=== PATIENT | female | born 1955 | race Caucasian/White ===

== ENCOUNTER → 2016-04-28 | Outpatient (REF) | payer OTHER ==
[~2016-04-28] MED LIST: /AMLO25TA PO; ADV250INH INH; ALBU17IN INH; AMLO5TAB2 PO; ASPI325T28 PO; ATOR1TAB21 PO; AZIT250T3 PO; LEVO10VL IV; LEVO500T PO; MEDR4TAB PO; OYST1TAB PO; PRED10TA PO; PRED1TAB32 PO; TYLE325T5 PO; VENTAER INH
[2016-04-28 12:00] LABS: MEAN CORPUSCULAR HGB CONC 34.5 g/dl (32.0-36.5); MEAN CORPUSCULAR VOLUME 101.5 fl (80.0-96.0); RED CELL DISTRIBUTION WIDTH 12.6 % (11.5-14.5); WHITE BLOOD COUNT 4.1 K/mm3 (4.0-10.0)
[2016-04-28 12:16] LABS: VITAMIN B12 LEVEL 312 PG/ML (247-911)
[2016-04-28 12:26] LABS: ALBUMIN 3.9 GM/DL (3.2-5.2); ALBUMIN/GLOBULIN RATIO 1.34 (1.00-1.93); ALKALINE PHOSPHATASE 111 U/L (45-117); ALT/SGPT 24 U/L (12-78); ANION GAP 14 MEQ/L (8-16); AST/SGOT 25 U/L (15-37); BILIRUBIN,TOTAL 0.7 MG/DL (0.2-1.0); BLOOD UREA NITROGEN 12 MG/DL (7-18); CALCIUM LEVEL 8.8 MG/DL (8.8-10.2); CARBON DIOXIDE LEVEL 23 MEQ/L (21-32); CHLORIDE LEVEL 99 MEQ/L (98-107); CHOLESTEROL LEVEL 199 MG/DL (<200); CREATININE FOR GFR 0.66 MG/DL (0.55-1.02); FREE T4 1.19 NG/DL (0.76-1.46); GLOMERULAR FILTRATION RATE > 60.0 (>45); GLUCOSE, FASTING 109 MG/DL (80-110); POTASSIUM SERUM 4.2 MEQ/L (3.5-5.1); SODIUM LEVEL 136 MEQ/L (136-145); TOTAL PROTEIN 6.8 GM/DL (6.4-8.2); TRIGLYCERIDES LEVEL 47 MG/DL (<150)
== END ==
LOC: M LABDRAW1 11:29
PROVIDERS: ATTEND Nurse Practitioner Family
DX: E78.00 Pure hypercholesterolemia, unspecified (principal); I10 Essential (primary) hypertension; E53.8 Deficiency of other specified B group vitamins; E03.9 Hypothyroidism, unspecified; E55.9 Vitamin D deficiency, unspecified

== ENCOUNTER → 2016-06-23 | Outpatient (REF) | payer OTHER | LOC: M LAB REF 12:18 | PROVIDERS: ATTEND Physician Assistant | DX: J03.90 Acute tonsillitis, unspecified (principal) ==

== ENCOUNTER → 2016-07-20 | Outpatient (REF) | payer OTHER | LOC: M LAB REF 16:34 | PROVIDERS: ATTEND Neurological Surgery | DX: Z01.818 Encounter for other preprocedural examination (principal); G56.00 Carpal tunnel syndrome, unspecified upper limb ==

== ENCOUNTER → 2016-08-03 | Outpatient (REF) | payer OTHER ==
[2016-08-03 12:01] LABS: MEAN CORPUSCULAR HEMOGLOBIN 33.6 pg (27.0-33.0); MEAN CORPUSCULAR HGB CONC 32.5 g/dl (32.0-36.5); MEAN CORPUSCULAR VOLUME 103.2 fl (80.0-96.0); RED CELL DISTRIBUTION WIDTH 13.8 % (11.5-14.5); WHITE BLOOD COUNT 4.3 K/mm3 (4.0-10.0)
[2016-08-03 12:10] LABS: VITAMIN B12 LEVEL 417 PG/ML (247-911)
[2016-08-03 12:15] LABS: ALBUMIN 3.8 GM/DL (3.2-5.2); ALBUMIN/GLOBULIN RATIO 1.12 (1.00-1.93); ALKALINE PHOSPHATASE 89 U/L (45-117); ALT/SGPT 21 U/L (12-78); ANION GAP 7 MEQ/L (8-16); AST/SGOT 27 U/L (15-37); BILIRUBIN,TOTAL 0.9 MG/DL (0.2-1.0); BLOOD UREA NITROGEN 4 MG/DL (7-18); CALCIUM LEVEL 8.7 MG/DL (8.8-10.2); CARBON DIOXIDE LEVEL 27 MEQ/L (21-32); CHLORIDE LEVEL 97 MEQ/L (98-107); CHOLESTEROL LEVEL 200 MG/DL (<200); CREATININE FOR GFR 0.51 MG/DL (0.55-1.02); FREE T4 1.36 NG/DL (0.76-1.46); GLOMERULAR FILTRATION RATE > 60.0 (>45); GLUCOSE, FASTING 82 MG/DL (80-110); POTASSIUM SERUM 4.4 MEQ/L (3.5-5.1); SODIUM LEVEL 131 MEQ/L (136-145); TOTAL PROTEIN 7.2 GM/DL (6.4-8.2); TRIGLYCERIDES LEVEL 52 MG/DL (<150)
== END ==
LOC: M LABDRAW1 11:14
PROVIDERS: ATTEND Nurse Practitioner Family
DX: E78.00 Pure hypercholesterolemia, unspecified (principal); I10 Essential (primary) hypertension; E55.9 Vitamin D deficiency, unspecified; E03.9 Hypothyroidism, unspecified

== ENCOUNTER → 2016-08-31 | Outpatient (CLI) | payer OTHER ==
[~2016-08-31] MED LIST changes: +ADVA230A INH; +CYAN25TA PO; +LEVO125T3 PO
[2016-08-31 09:00] LABS: BASO % 0.8 % (0.0-1.0); EOS # 0.1 K/mm3 (0.0-0.50); EOS % 2.6 % (0.0-3.0); LARGE UNSTAINED CELL # 0.1 K/mm3 (0.0-0.4); LARGE UNSTAINED CELL % 2.6 % (0.0-4.0); LYMPH # 1.3 K/mm3 (1.5-4.5); LYMPH % 30.3 % (24.0-44.0); MEAN CORPUSCULAR HEMOGLOBIN 35.7 pg (27.0-33.0); MEAN CORPUSCULAR HGB CONC 34.2 g/dl (32.0-36.5); MEAN CORPUSCULAR VOLUME 104.4 fl (80.0-96.0); MONO # 0.4 K/mm3 (0.0-0.8); NEUTROPHILS % 53.6 % (36.0-66.0); PLATELET COUNT, AUTOMATED 297 k/mm3 (150-450); RED CELL DISTRIBUTION WIDTH 13.6 % (11.5-14.5); WHITE BLOOD COUNT 3.8 K/mm3 (4.0-10.0)
[2016-08-31 09:09] LABS: INR 1.01
--- NOTE | 2016-08-31 09:12 | REP ---
Clinical: Preoperative assessment. Technique: PA and lateral. Comparison: 06/12/2014. Findings: Mediastinum and cardiac silhouette are within normal limits and stable. Lung parker demonstrate chronic stable changes without acute consolidation, effusion, or pneumothorax. Airway is patent and midline. Skeletal structures demonstrate age-related changes. Impression: Chronic stable changes. No acute cardiopulmonary process appreciated. Signed by Gabe Chicas MD 08/31/2016 09:04 A
[2016-08-31 09:24] LABS: ALBUMIN 3.6 GM/DL (3.2-5.2); ALBUMIN/GLOBULIN RATIO 1.03 (1.00-1.93); ALKALINE PHOSPHATASE 91 U/L (45-117); ALT/SGPT 36 U/L (12-78); ANION GAP 8 MEQ/L (8-16); AST/SGOT 26 U/L (15-37); BILIRUBIN,TOTAL 0.6 MG/DL (0.2-1.0); BLOOD UREA NITROGEN 8 MG/DL (7-18); CALCIUM LEVEL 8.6 MG/DL (8.8-10.2); CARBON DIOXIDE LEVEL 27 MEQ/L (21-32); CHLORIDE LEVEL 101 MEQ/L (98-107); CREATININE FOR GFR 0.69 MG/DL (0.55-1.02); GLOMERULAR FILTRATION RATE > 60.0 (>45); GLUCOSE, FASTING 96 MG/DL (80-110); POTASSIUM SERUM 4.2 MEQ/L (3.5-5.1); SODIUM LEVEL 136 MEQ/L (136-145); TOTAL PROTEIN 7.1 GM/DL (6.4-8.2)
--- NOTE | 2016-08-31 10:14 | ECGEPIP ---
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
== END ==
LOC: M LAB 08:18
PROVIDERS: ATTEND Neurological Surgery
DX: Z01.818 Encounter for other preprocedural examination (principal); G56.00 Carpal tunnel syndrome, unspecified upper limb

== ENCOUNTER → 2016-09-08 | Day surgery (SDC) | payer OTHER ==
[~2016-09-08] VITALS: Ht 160 cm; Wt 70.3 kg
[~2016-09-08] MED LIST changes: +ALBUTEROL SULFATE 2.5 MG/0.5 ML INH NEB SOLN As Ordered ONE; +ALBUTEROL SULFATE 2.5 MG/0.5 ML INH NEB SOLN INH ONE; +KETOROLAC 60 MG/2 ML VIAL (J1885) As Ordered ONE; +LIDOCAINE 1% SDV INJ 30 ML VIAL As Ordered ONE; +LIDOCAINE 2% INJ 100 MG/5 ML SDV (FOR ANES.) As Ordered ONE; +LR 1,000 ML IV ONE; +LR 1,000 ML IV SCH; +MIDAZOLAM INJ 2 MG/2 ML VIAL (J2250) As Ordered ONE; +NORCO, ANEXSIA 5/325MG TABLET (HYDROcodone/ACETAMINOPHEN) PO PRN; +ONDANSETRON 4MG/2ML VIAL (J2405) As Ordered ONE; +ONDANSETRON 4MG/2ML VIAL (J2405) IV PRN; +PHENYLephrine HCL 500 MCG/5 ML (100MCG/ML) SYRINGE (J2370) As Ordered ONE; +PROPOFOL 200 MG/20 ML VIAL As Ordered ONE; +fentaNYL 100 MCG/2 ML INJECTION (J3010) As Ordered ONE; +methylPREDNISolone SUSP 40 MG/ML (DEPO-medrol) VIAL (J1030) As Ordered ONE
[2016-09-08] MEDS: fentaNYL 100 MCG/2 ML INJECTION (J3010) IV PRN ×2 (11:30→11:40)
[2016-09-08 13:15] VITALS: BP 161/72
--- NOTE | 2016-09-09 09:01 | RO ---
DATE OF PROCEDURE: 09/08/2016 PREPROCEDURE DIAGNOSIS: Left carpal tunnel syndrome. POSTPROCEDURE DIAGNOSIS: Left carpal tunnel syndrome. PROCEDURE: Release of left carpal tunnel and external neurolysis of median nerve at the carpal tunnel. SURGEON: Dr. Michele Salazar. DIRECTOR OF STRATEGIC MARKETING: None. ANESTHESIA: General with tourniquet. ESTIMATED BLOOD LOSS: Findings: Please see my office notes for detailed preoperative evaluation and discussions. Patient was seen in the preoperative area with her . Patient was aware of all options, risks, scope, expected outcome, sequel and complication of the proposed procedure. Patient understood no guarantees of any kind could be given and that not all her symptoms could be readily explained on carpal tunnel syndrome, thus not all may be addressed. Patient understood once again the scope, expected outcome, sequel, all complications of surgery and understood the risks include, , persistence or worsening of symptoms and/or deficits, need for multiple surgeries, failure of surgery, persistence and/or worsening or symptoms and/or deficits, development of RSD, further worsening of respiratory disorder, loss of vital bodily functions, infection, bleeding and/or any catastrophic sequel. Once again, she wished to proceed with surgery. She understands all the risks and is willing to take any risks. After informed consent, patient was taken to the operating room. Once in the operating room, general anesthesia was given by the anesthesia service. The anesthesia service decided to switch the surgery from nerve block with conscious sedation to general anesthesia. Once general anesthesia was given by the anesthesia service, the area of surgery was prepped and draped in the usual sterile fashion using Esmarch dressing. The left upper extremity was examined and a skin incision was given along one of the palmar creases distal to the wrist crease. Alveolar layer was reached and incised. Cut edges of the blood vessels were coagulated with bipolar cautery. Thenar and hypothenar muscles were from midline structures with self retaining retractors. Tendons of the palmaris longus were . Thenar and hypothenar muscles were stripped off the flexor retinaculum which were then incised in entirety. There was nodular hypertrophy of the flexor retinaculum particularly just next to the wrist joint. Multiple adhesions of median nerve were lysed and complete decompression of median nerve was carried out to the entire extent of the carpal tunnel and some were proximal as well as medially in the distal wrist. After complete decompression had been done and superficial median nerve adhesions were lysed, the wound was closed in two layers. Patient tolerated the procedure well and was transferred to outpatient unit in stable condition. Operative findings were discussed with patient's in the waiting room.
== END | disposition home or self-care (01) ==
LOC: M SDC 06:58
PROVIDERS: ATTEND Neurological Surgery
DX: G56.02 Carpal tunnel syndrome, left upper limb (principal); I10 Essential (primary) hypertension; R06.02 Shortness of breath; M47.892 Other spondylosis, cervical region; J44.9 Chronic obstructive pulmonary disease, unspecified; M54.81 Occipital neuralgia; M47.896 Other spondylosis, lumbar region; M46.1 Sacroiliitis, not elsewhere classified; G56.22 Lesion of ulnar nerve, left upper limb; M12.9 Arthropathy, unspecified; E03.9 Hypothyroidism, unspecified; Z79.899 Other long term (current) drug therapy; Z90.710 Acquired absence of both cervix and uterus; Z72.0 Tobacco use
CPT/HCPCS: 36415; 64721; 85576; J0690; J1030; J1885; J2250; J2370; J2405; J3010

== ENCOUNTER → 2016-11-04 | Outpatient (REF) | payer OTHER ==
[~2016-11-04] MED LIST changes: -ALBUTEROL SULFATE 2.5 MG/0.5 ML INH NEB SOLN As Ordered ONE; -ALBUTEROL SULFATE 2.5 MG/0.5 ML INH NEB SOLN INH ONE; +AZIT-12 PO; -AZIT250T3 PO; -KETOROLAC 60 MG/2 ML VIAL (J1885) As Ordered ONE; -LEVO125T3 PO; +LEVO125T4 PO; -LIDOCAINE 1% SDV INJ 30 ML VIAL As Ordered ONE; -LIDOCAINE 2% INJ 100 MG/5 ML SDV (FOR ANES.) As Ordered ONE; -LR 1,000 ML IV ONE; -LR 1,000 ML IV SCH; -MIDAZOLAM INJ 2 MG/2 ML VIAL (J2250) As Ordered ONE; -NORCO, ANEXSIA 5/325MG TABLET (HYDROcodone/ACETAMINOPHEN) PO PRN; -ONDANSETRON 4MG/2ML VIAL (J2405) As Ordered ONE; -ONDANSETRON 4MG/2ML VIAL (J2405) IV PRN; -PHENYLephrine HCL 500 MCG/5 ML (100MCG/ML) SYRINGE (J2370) As Ordered ONE; -PROPOFOL 200 MG/20 ML VIAL As Ordered ONE; -fentaNYL 100 MCG/2 ML INJECTION (J3010) As Ordered ONE; -methylPREDNISolone SUSP 40 MG/ML (DEPO-medrol) VIAL (J1030) As Ordered ONE
[2016-11-04 11:51] LABS: MEAN CORPUSCULAR HEMOGLOBIN 34.6 pg (27.0-33.0); MEAN CORPUSCULAR VOLUME 101.7 fl (80.0-96.0); RED CELL DISTRIBUTION WIDTH 13.3 % (11.5-14.5); WHITE BLOOD COUNT 3.6 K/mm3 (4.0-10.0)
[2016-11-04 12:00] LABS: VITAMIN B12 LEVEL 555 PG/ML (247-911)
[2016-11-04 16:12] LABS: ALBUMIN 3.9 GM/DL (3.2-5.2); ALBUMIN/GLOBULIN RATIO 1.15 (1.00-1.93); ALKALINE PHOSPHATASE 112 U/L (45-117); ALT/SGPT 55 U/L (12-78); ANION GAP 7 MEQ/L (8-16); AST/SGOT 46 U/L (15-37); BILIRUBIN,TOTAL 1.3 MG/DL (0.2-1.0); BLOOD UREA NITROGEN 5 MG/DL (7-18); CARBON DIOXIDE LEVEL 27 MEQ/L (21-32); CHLORIDE LEVEL 99 MEQ/L (98-107); CHOLESTEROL LEVEL 198 MG/DL (<200); CREATININE FOR GFR 0.58 MG/DL (0.55-1.02); FREE T4 1.39 NG/DL (0.76-1.46); GLOMERULAR FILTRATION RATE > 60.0 (>45); GLUCOSE, FASTING 87 MG/DL (80-110); POTASSIUM SERUM 4.1 MEQ/L (3.5-5.1); SODIUM LEVEL 133 MEQ/L (136-145); TOTAL PROTEIN 7.3 GM/DL (6.4-8.2); TRIGLYCERIDES LEVEL 51 MG/DL (<150)
== END ==
LOC: M LABDRAW1 11:15
PROVIDERS: ATTEND Nurse Practitioner Family
DX: D51.9 Vitamin B12 deficiency anemia, unspecified (principal); I10 Essential (primary) hypertension; E78.5 Hyperlipidemia, unspecified; E03.9 Hypothyroidism, unspecified

== ENCOUNTER → 2017-03-03 | Outpatient (REF) | payer OTHER ==
[2017-03-03 12:08] LABS: MEAN CORPUSCULAR HEMOGLOBIN 34.1 pg (27.0-33.0); MEAN CORPUSCULAR HGB CONC 34.7 g/dl (32.0-36.5); MEAN CORPUSCULAR VOLUME 98.3 fl (80.0-96.0); PLATELET COUNT, AUTOMATED 265 10^3/uL (150-450); RED CELL DISTRIBUTION WIDTH 14.2 % (11.5-14.5); WHITE BLOOD COUNT 3.8 10^3/uL (4.0-10.0)
[2017-03-03 12:46] LABS: ALBUMIN 3.7 GM/DL (3.2-5.2); ALBUMIN/GLOBULIN RATIO 1.19 (1.00-1.93); ALKALINE PHOSPHATASE 85 U/L (45-117); ALT/SGPT 27 U/L (12-78); ANION GAP 8 MEQ/L (8-16); AST/SGOT 20 U/L (7-37); BILIRUBIN,TOTAL 0.7 MG/DL (0.2-1.0); BLOOD UREA NITROGEN 6 MG/DL (7-18); CALCIUM LEVEL 8.9 MG/DL (8.8-10.2); CARBON DIOXIDE LEVEL 28 MEQ/L (21-32); CHLORIDE LEVEL 102 MEQ/L (98-107); CHOLESTEROL LEVEL 232 MG/DL (<200); CREATININE FOR GFR 0.59 MG/DL (0.55-1.02); FREE T4 1.43 NG/DL (0.76-1.46); GLOMERULAR FILTRATION RATE > 60.0 (>45); GLUCOSE, FASTING 99 MG/DL (80-110); POTASSIUM SERUM 4.4 MEQ/L (3.5-5.1); SODIUM LEVEL 138 MEQ/L (136-145); TOTAL PROTEIN 6.8 GM/DL (6.4-8.2); TRIGLYCERIDES LEVEL 48 MG/DL (<150)
== END ==
LOC: M LABDRAW1 10:18
PROVIDERS: ATTEND Nurse Practitioner Family
DX: I10 Essential (primary) hypertension (principal); E78.00 Pure hypercholesterolemia, unspecified; E55.9 Vitamin D deficiency, unspecified; E03.9 Hypothyroidism, unspecified

== ENCOUNTER → 2017-06-10 | Outpatient (REF) | payer OTHER ==
[2017-06-10 12:13] LABS: TOTAL 25(OH) VITAMIN D 40.1 NG/ML (30.0-100.0)
[2017-06-10 12:16] LABS: ALBUMIN/GLOBULIN RATIO 1.14 (1.00-1.93); ALKALINE PHOSPHATASE 103 U/L (45-117); ALT/SGPT 29 U/L (12-78); ANION GAP 9 MEQ/L (8-16); AST/SGOT 26 U/L (7-37); BILIRUBIN,TOTAL 0.7 MG/DL (0.2-1.0); BLOOD UREA NITROGEN 7 MG/DL (7-18); CALCIUM LEVEL 8.9 MG/DL (8.8-10.2); CARBON DIOXIDE LEVEL 28 MEQ/L (21-32); CHLORIDE LEVEL 98 MEQ/L (98-107); CHOLESTEROL LEVEL 218 MG/DL (<200); CHOLESTEROL RISK RATIO 1.703 (<5); CPK CREATINE PHOSPHOKINASE 108 U/L (26-192); CREATININE FOR GFR 0.51 MG/DL (0.55-1.30); FREE T4 1.25 NG/DL (0.76-1.46); GLOMERULAR FILTRATION RATE > 60.0 (>45); GLUCOSE, FASTING 98 MG/DL (70-100); HDL CHOLESTEROL 128 MG/DL (>40); LDL CHOLESTEROL 80.6 MG/DL (<100); NON-HDL-C 90 MG/DL; POTASSIUM SERUM 4.5 MEQ/L (3.5-5.1); SODIUM LEVEL 135 MEQ/L (136-145); TOTAL PROTEIN 7.5 GM/DL (6.4-8.2); TRIGLYCERIDES LEVEL 47 MG/DL (<150)
== END ==
LOC: M LABDRAW1 08:16
DX: J44.9 Chronic obstructive pulmonary disease, unspecified (principal); E78.5 Hyperlipidemia, unspecified; E55.9 Vitamin D deficiency, unspecified; E03.9 Hypothyroidism, unspecified; D51.9 Vitamin B12 deficiency anemia, unspecified

== ENCOUNTER 2017-06-16 17:23 | Emergency (ER) | payer OTHER ==
[2017-06-16 18:30] LABS: BASO % 0.6 % (0.0-1.0); EOS % 0.5 % (0.0-3.0); HEMATOCRIT 39.8 % (36.0-47.0); HEMOGLOBIN 13.9 g/dl (12.0-16.0); IMMATURE GRANULOCYTE % 0.3 % (0-3.0); LYMPH % 30.3 % (24.0-44.0); MEAN CORPUSCULAR HEMOGLOBIN 33.2 pg (27.0-33.0); MEAN CORPUSCULAR HGB CONC 34.9 g/dl (32.0-36.5); MONO # 0.5 10^3/uL (0.0-0.8); MONO % 7.1 % (0.0-5.0); NEUTROPHILS % 61.2 % (36.0-66.0); PLATELET COUNT, AUTOMATED 241 10^3/uL (150-450); RED BLOOD COUNT 4.19 10^6/uL (4.00-5.40); WHITE BLOOD COUNT 6.5 10^3/uL (4.0-10.0)
[2017-06-16 18:50] LABS: ANION GAP 8 MEQ/L (8-16); BLOOD UREA NITROGEN 15 MG/DL (7-18); CARBON DIOXIDE LEVEL 26 MEQ/L (21-32); CHLORIDE LEVEL 100 MEQ/L (98-107); CREATININE FOR GFR 0.61 MG/DL (0.55-1.30); GLOMERULAR FILTRATION RATE > 60.0 (>45); GLUCOSE, FASTING 123 MG/DL (70-100); POTASSIUM SERUM 3.5 MEQ/L (3.5-5.1); SODIUM LEVEL 134 MEQ/L (136-145)
[2017-06-16 18:56] LABS: CPK CREATINE PHOSPHOKINASE 85 U/L (26-192); TROPONIN I < 0.02 NG/ML (< 0.10)
[2017-06-16 19:01] LABS: CK-MB VALUE MASS 1.9 NG/ML (0.0-3.6); MB/CK RELATIVE INDEX 2.23 (< OR =4)
[2017-06-16] MEDS: MECLIZINE 25 MG TABLET PO (20:25)
[2017-06-16] MEDS: LORazepam 2 MG/ML VIAL (J2060) IV (21:56)
== END 2017-06-16 22:26 | disposition home or self-care (01) ==
LOC: M ED 17:23
DX: R42 Dizziness and giddiness (principal); I10 Essential (primary) hypertension; F17.200 Nicotine dependence, unspecified, uncomplicated; Z79.899 Other long term (current) drug therapy
CPT/HCPCS: J2060

== ENCOUNTER → 2017-06-21 | Outpatient (REF) | payer OTHER ==
[2017-06-21 11:40] LABS: ERYTHROCYTE SEDIMENTATION RATE 27 mm/hr (0-30)
== END ==
LOC: M LABDRAW1 10:50
DX: R51 Headache (principal)
CPT/HCPCS: 36415

== ENCOUNTER → 2017-07-01 | Outpatient (REF) | payer OTHER ==
[2017-07-01 13:03] LABS: BLOOD UREA NITROGEN 10 MG/DL (7-18)
[2017-07-01 13:03] LABS: CREATININE FOR GFR 0.76 MG/DL (0.55-1.30); GLOMERULAR FILTRATION RATE > 60.0 (>45)
== END ==
LOC: M LABNEURO 10:59
DX: G50.0 Trigeminal neuralgia (principal)

== ENCOUNTER → 2017-08-02 | Outpatient (CLI) | payer OTHER | LOC: M PLARAD 09:18 | DX: R91.1 Solitary pulmonary nodule (principal) | CPT/HCPCS: 78815 ==

== ENCOUNTER → 2017-08-26 | Outpatient (CLI) | payer OTHER | LOC: M CARPUL 09:05 | DX: R93.1 Abnormal findings on diagnostic imaging of heart and coronary circulation (principal) | CPT/HCPCS: 93306 ==

== ENCOUNTER → 2017-11-24 | Outpatient (REF) | payer OTHER | LOC: M LAB REF 13:29 | DX: L56.8 Other specified acute skin changes due to ultraviolet radiation (principal); L57.0 Actinic keratosis | CPT/HCPCS: 88305 ==

== ENCOUNTER → 2017-12-08 | Outpatient (REF) | payer OTHER ==
[2017-12-08 12:46] LABS: HEMATOCRIT 40.5 % (36.0-47.0); HEMOGLOBIN 14.3 g/dl (12.0-15.5); MEAN CORPUSCULAR HEMOGLOBIN 33.5 pg (27.0-33.0); MEAN CORPUSCULAR HGB CONC 35.3 g/dl (32.0-36.5); MEAN CORPUSCULAR VOLUME 94.8 fl (80.0-96.0); PLATELET COUNT, AUTOMATED 295 10^3/uL (150-450); RED BLOOD COUNT 4.27 10^6/uL (4.00-5.40); RED CELL DISTRIBUTION WIDTH 14.9 % (11.5-14.5); WHITE BLOOD COUNT 3.5 10^3/uL (4.0-10.0)
[2017-12-08 13:10] LABS: ALBUMIN 3.9 GM/DL (3.2-5.2); ALBUMIN/GLOBULIN RATIO 1.03 (1.00-1.93); ALKALINE PHOSPHATASE 103 U/L (45-117); ALT/SGPT 35 U/L (12-78); ANION GAP 8 MEQ/L (8-16); AST/SGOT 38 U/L (7-37); BILIRUBIN,TOTAL 0.9 MG/DL (0.2-1.0); BLOOD UREA NITROGEN 5 MG/DL (7-18); C REACTIVE PROTEIN QUANTITATIV < 0.30 MG/DL (0.00-0.30); CARBON DIOXIDE LEVEL 27 MEQ/L (21-32); CHLORIDE LEVEL 99 MEQ/L (98-107); CHOLESTEROL LEVEL 211 MG/DL (<200); CHOLESTEROL RISK RATIO 1.455 (<5); CPK CREATINE PHOSPHOKINASE 102 U/L (26-192); CREATININE FOR GFR 0.51 MG/DL (0.55-1.30); GLOMERULAR FILTRATION RATE > 60.0 (>45); GLUCOSE, FASTING 88 MG/DL (70-100); HDL CHOLESTEROL 145 MG/DL (>40); LDL CHOLESTEROL 57.2 MG/DL (<100); NON-HDL-C 66 MG/DL; POTASSIUM SERUM 4.7 MEQ/L (3.5-5.1); RHEUMATOID FACTOR QUANT < 10.0 IU/ML (<15.0); SODIUM LEVEL 134 MEQ/L (136-145); TOTAL PROTEIN 7.7 GM/DL (6.4-8.2); TRIGLYCERIDES LEVEL 44 MG/DL (<150)
[2017-12-09 14:58] LABS: ANTINUCLEAR ANTIBODIES DIRECT Negative (Negative); RNP ANTIBODIES <0.2 AI (0.0-0.9); SMITH ANTIBODIES <0.2 AI (0.0-0.9)
== END ==
LOC: M LABDRAW1 12:23
DX: I10 Essential (primary) hypertension (principal); E78.00 Pure hypercholesterolemia, unspecified; E03.9 Hypothyroidism, unspecified
CPT/HCPCS: 82550

== ENCOUNTER → 2018-02-08 | Outpatient (CLI) | payer OTHER ==
[2018-02-08 16:21] LABS: HEMATOCRIT 39.1 % (36.0-47.0); HEMOGLOBIN 13.6 g/dl (12.0-15.5); MEAN CORPUSCULAR HEMOGLOBIN 33.9 pg (27.0-33.0); MEAN CORPUSCULAR HGB CONC 34.8 g/dl (32.0-36.5); MEAN CORPUSCULAR VOLUME 97.5 fl (80.0-96.0); PLATELET COUNT, AUTOMATED 349 10^3/uL (150-450); RED BLOOD COUNT 4.01 10^6/uL (4.00-5.40); RED CELL DISTRIBUTION WIDTH 13.9 % (11.5-14.5); WHITE BLOOD COUNT 5.4 10^3/uL (4.0-10.0)
== END ==
LOC: M LAB 16:03
DX: D72.819 Decreased white blood cell count, unspecified (principal)
CPT/HCPCS: 85027

== ENCOUNTER → 2018-04-21 | Outpatient (CLI) | payer OTHER ==
[~2018-04-21] MED LIST changes: -AMLO5TAB2 PO; +AMLO5TAB6 PO; +ASPI-222 PO; -ASPI325T28 PO; -CYAN25TA PO; +MECL-68 PO; +VITA250T50 PO
--- NOTE | 2018-04-21 08:25 | REPMRS ---
Patient History The patient states she had a clinical breast exam in 03/05 Family history of breast cancer at age 58 in mother, ovarian cancer at age 60 in sister. Digital Woman Screen Mammo: April 21, 2018 - Exam #: [id number] Bilateral CC and MLO view(s) were taken. Technologist: Layne León, Technologist Prior study comparison: February 14, 2017, digital woman screen mammo performed at [facility]. February 12, 2016, digital woman screen mammo performed at [facility]. September 27, 2014, digital woman screen mammo performed at [facility]. FINDINGS: The breast tissue is heterogeneously dense. This may lower the sensitivity of mammography. There is a moderate amount of heterogeneously dense fibroglandular tissue which is fairly symmetric. There is no interval development of dominant mass, architectural distortion, or clustered microcalcification typical of malignancy. There has been no change in the appearance of the mammogram from the prior studies. 3-D tomosynthesis shows no additional findings. Assessment: BI-RADS/ACR category 1 mammogram. Negative. Recommendation Routine screening mammogram of both breasts in 1 year (for women over age 40). This patient's Lifetime Breast Cancer RIsk is estimated at 9.2 %. This mammogram was interpreted with the aid of an FDA-approved computer-aided dectection system. Electronically Signed By: Joe Hyman MD 04/21/18 0825
== END ==
LOC: M WHC 07:48
PROVIDERS: ATTEND Nurse Practitioner Family
DX: Z12.31 Encounter for screening mammogram for malignant neoplasm of breast (principal)

== ENCOUNTER → 2018-04-25 | Outpatient (REF) | payer OTHER | LOC: M LAB REF 15:26 | PROVIDERS: ATTEND Surgery | DX: D48.5 Neoplasm of uncertain behavior of skin (principal) ==

== ENCOUNTER → 2018-07-13 | Outpatient (REF) | payer OTHER ==
[~2018-07-13] MED LIST changes: +ALBU2TA PO; +ALBU83IN INH
[2018-07-13 13:14] LABS: HEMATOCRIT 42.2 % (36.0-47.0); HEMOGLOBIN 14.7 g/dl (12.0-15.5); MEAN CORPUSCULAR HEMOGLOBIN 33.2 pg (27.0-33.0); MEAN CORPUSCULAR HGB CONC 34.8 g/dl (32.0-36.5); MEAN CORPUSCULAR VOLUME 95.3 fl (80.0-96.0); PLATELET COUNT, AUTOMATED 275 10^3/uL (150-450); RED BLOOD COUNT 4.43 10^6/uL (4.00-5.40); WHITE BLOOD COUNT 4.6 10^3/uL (4.0-10.0)
[2018-07-13 13:41] LABS: ALT/SGPT 33 U/L (12-78); BILIRUBIN,TOTAL 0.9 MG/DL (0.2-1.0); BLOOD UREA NITROGEN 9 MG/DL (7-18); CARBON DIOXIDE LEVEL 25 MEQ/L (21-32); CHLORIDE LEVEL 97 MEQ/L (98-107); CHOLESTEROL LEVEL 212 MG/DL (<200); CHOLESTEROL RISK RATIO 1.696 (<5); CPK CREATINE PHOSPHOKINASE 83 U/L (26-192); CREATININE FOR GFR 0.53 MG/DL (0.55-1.30); FREE T4 1.71 NG/DL (0.76-1.46); GLOMERULAR FILTRATION RATE > 60.0 (>45); GLUCOSE, FASTING 100 MG/DL (70-100); HDL CHOLESTEROL 125 MG/DL (>40); LDL CHOLESTEROL 76 MG/DL (<100); NON-HDL-C 87 MG/DL; POTASSIUM SERUM 4.8 MEQ/L (3.5-5.1); SODIUM LEVEL 133 MEQ/L (136-145); TOTAL PROTEIN 7.5 GM/DL (6.4-8.2); TRIGLYCERIDES LEVEL 57 MG/DL (<150)
[2018-07-13 13:44] LABS: TOTAL 25(OH) VITAMIN D 31.4 NG/ML (30.0-100.0)
== END ==
LOC: M LABDRAW1 11:34
PROVIDERS: ATTEND Nurse Practitioner Family
DX: E03.9 Hypothyroidism, unspecified (principal); I10 Essential (primary) hypertension; E55.9 Vitamin D deficiency, unspecified; E78.00 Pure hypercholesterolemia, unspecified

== ENCOUNTER → 2018-07-22 | Outpatient (CLI) | payer OTHER ==
[~2018-07-22] MED LIST changes: -/AMLO25TA PO; +LEVO100I IV; -LEVO10VL IV; +NORV2TAB PO; +PRED-351 PO; -PRED10TA PO
--- NOTE | 2018-07-22 09:32 | REP ---
Clinical: Gout Comparison: 08/31/2016 . Technique: PA and lateral. Findings: The mediastinum and cardiac silhouette are normal. The lung parker demonstrate chronic stable changes without acute consolidation, effusion, or pneumothorax. The skeletal structures are intact and normal. Impression: Chronic stable changes. No acute cardiopulmonary process. Electronically Signed by Gabe Chicas MD 07/22/2018 09:24 A
== END ==
LOC: M ADAMS 09:10
PROVIDERS: ATTEND Nurse Practitioner Family
DX: J44.9 Chronic obstructive pulmonary disease, unspecified (principal)

== ENCOUNTER 2018-07-25 09:14 | Day surgery (SDC) | payer OTHER ==
[~2018-07-25] VITALS: Ht 162.6 cm; Wt 58.1 kg
[~2018-07-25 09:14] MED LIST changes: +NS 1,000 ML IV ONE
[2018-07-25] MEDS ORDERED: LIDOCAINE 2% INJ 100 MG/5 ML SDV (FOR ANES.) As Ordered ONE (10:20)
[2018-07-25] MEDS ORDERED: PROPOFOL 200 MG/20 ML VIAL As Ordered ONE ×2 (10:20→11:03)
[2018-07-25 11:45] VITALS: BP 137/69
--- NOTE | 2018-07-25 12:23 | ROOR ---
Patient Name: Elisa Carpio Procedure Date: 07/25/2018 10:38 AM Date of : 1955 Age: 62 Room: [facility] Gender: Female Note Status: Finalized Procedure: Colonoscopy Indications: Last colonoscopy: June 2015, Abnormal CT of the GI tract, Weight loss Providers: Greg Leach MD Referring MD: RONAL PADILLA NP Requesting Provider: Medicines: Monitored Anesthesia Care Complications: No immediate complications. Procedure: Pre-Anesthesia Assessment: - Prior to the procedure, a History and Physical was performed, and patient medications and allergies were reviewed. The patient is competent. The risks and benefits of the procedure and the sedation options and risks were discussed with the patient. All questions were answered and informed consent was obtained. Patient identification and proposed procedure were verified by the physician, the nurse and the anesthesiologist in the procedure room. Mental Status Examination: alert and oriented. CV Examination: regular rate and rhythm. Prophylactic Antibiotics: The patient does not require prophylactic antibiotics. Prior Anticoagulants: The patient has taken no previous anticoagulant or antiplatelet agents. ASA Grade Assessment: III - A patient with severe systemic disease. After reviewing the risks and benefits, the patient was deemed in satisfactory condition to undergo the procedure. The anesthesia plan was to use monitored anesthesia care (MAC). Immediately prior to administration of medications, the patient was re-assessed for adequacy to receive sedatives. The heart rate, respiratory rate, oxygen saturations, blood pressure, adequacy of pulmonary ventilation, and response to care were monitored throughout the procedure. The physical status of the patient was re-assessed after the procedure. The Colonoscope was introduced through the anus and advanced to the hepatic flexure. The colonoscopy was unusually difficult due to a redundant colon and significant looping. Successful completion of the procedure was aided by changing the patient to a supine position and using manual pressure. The patient tolerated the procedure well. The quality of the bowel preparation was excellent. Findings: The perianal exam findings include non-thrombosed external hemorrhoids. The colon (entire examined portion) revealed significantly excessive looping. A 4 mm polyp was found in the splenic flexure. The polyp was sessile. The polyp was removed with a jumbo cold forceps. Resection and retrieval were complete. The pathology specimen was placed into Bottle Number 1. A 3 mm polyp was found in the sigmoid colon. The polyp was sessile. The polyp was removed with a jumbo cold forceps. Resection and retrieval were complete. The pathology specimen was placed into Bottle Number 2. Two sessile polyps were found in the rectum. The polyps were 4 to 6 mm in size. These were biopsied with a cold jumbo forceps for histology. Impression: - Non-thrombosed external hemorrhoids found on perianal exam. - There was significant looping of the colon. - One 4 mm polyp at the splenic flexure, removed with a jumbo cold forceps. Resected and retrieved. - One 3 mm polyp in the sigmoid colon, removed with a jumbo cold forceps. Resected and retrieved. - Two 4 to 6 mm polyps in the rectum. Biopsied. Recommendation: - Discharge patient to home. - Resume previous diet. - Continue present medications. - Await pathology results. - Telephone endoscopist for pathology results in 1 week. Greg Leach MD Greg Leach MD 07/25/2018 12:22:36 PM Electronically signed by Greg Leahc MD Number of Addenda: 0 Note Initiated On: 07/25/2018 10:38 AM Estimated Blood Loss: Estimated blood loss was minimal.
== END 2018-07-25 11:56 | disposition home or self-care (01) ==
LOC: M OPP 09:14
PROVIDERS: ATTEND Surgery
DX: D12.3 Benign neoplasm of transverse colon (principal); D12.5 Benign neoplasm of sigmoid colon; K64.8 Other hemorrhoids; K62.1 Rectal polyp; Q43.8 Other specified congenital malformations of intestine; R93.3 Abnormal findings on diagnostic imaging of other parts of digestive tract; R63.4 Abnormal weight loss

== ENCOUNTER → 2018-10-03 | Outpatient (CLI) | payer OTHER ==
[~2018-10-03] MED LIST changes: -NS 1,000 ML IV ONE
[2018-10-03 20:08] LABS: FREE T4 1.46 NG/DL (0.76-1.46); THYROID STIMULATING HORMONE 2.65 uIU/ML (0.358-3.740); THYROXINE (T4) 10.2 UG/DL (4.5-12.0); TOTAL T3 63.1 NG/DL (60.0-181.0)
== END ==
LOC: M LABDRWAD 17:06
PROVIDERS: ATTEND Nurse Practitioner Family
DX: E03.9 Hypothyroidism, unspecified (principal)

== ENCOUNTER 2018-11-25 17:27 | Emergency (ER) | payer OTHER ==
[~2018-11-25] VITALS: Ht 162.6 cm; Wt 56.4 kg
[2018-11-25] MEDS ORDERED: THIAMINE 100 MG TAB PO ONE (18:00)
[2018-11-25] MEDS ORDERED: NS 1,000 ML IV SCH (18:00)
--- NOTE | 2018-11-25 18:21 | REPVR ---
EXAM: CT Head Without Contrast EXAM DATE/TIME: 11/25/2018 6:02 PM CLINICAL HISTORY: 62 years old, female; Injury or trauma; Fall; Initial encounter; Blunt trauma (contusions or hematomas) TECHNIQUE: Imaging protocol: Computed tomography images of the head without contrast. Radiation optimization: All CT scans at this facility use at least one of these dose optimization techniques: automated exposure control; mA and/or kV adjustment per patient size (includes targeted exams where dose is matched to clinical indication); or iterative reconstruction. COMPARISON: CT Head without contrast 06/16/2017 7:59 PM FINDINGS: Brain: Normal. No hemorrhage. Unremarkable white matter. No mass effect. Ventricles: Normal. No ventriculomegaly. Bones/joints: There is hyperostosis frontalis interna. Sinuses: Visualized sinuses are unremarkable. No fluid levels. Mastoid air cells: Visualized mastoid air cells are well aerated. No mastoid effusion. Soft tissues: Unremarkable. IMPRESSION: No acute intracranial findings. Electronically signed by: Esau Edge On 11/25/2018 18:21:03 PM
--- NOTE | 2018-11-25 18:28 | REPVR ---
EXAM: CT Cervical Spine Without Contrast EXAM DATE/TIME: 11/25/2018 6:02 PM CLINICAL HISTORY: 62 years old, female; Injury or trauma; Fall; Initial encounter; Blunt trauma TECHNIQUE: Imaging protocol: Computed tomography images of the cervical spine without contrast. Coronal and sagittal reformatted images were created and reviewed. Radiation optimization: All CT scans at this facility use at least one of these dose optimization techniques: automated exposure control; mA and/or kV adjustment per patient size (includes targeted exams where dose is matched to clinical indication); or iterative reconstruction. COMPARISON: CR Spine, Cervical 09/10/2015 8:46 AM FINDINGS: Vertebrae: No acute fracture. Normal alignment. Discs/Spinal canal/Neural foramina: Degenerative changes atlantoaxial joint. Mild disc space narrowing at C4-5 and to a greater degree C5-6. Soft tissues: Unremarkable. Lungs: Pleural-parenchymal calcific scarring left apex. Bilateral emphysematous changes. IMPRESSION: No acute findings. Mild degenerative spondylosis. Electronically signed by: Esau Edge On 11/25/2018 18:28:47 PM
[2018-11-25 19:10] LABS: BASO % 0.6 % (0.0-1.0); EOS # 0.1 10^3/uL (0.0-0.50); EOS % 1.4 % (0.0-3.0); HEMATOCRIT 38.9 % (36.0-47.0); HEMOGLOBIN 13.8 g/dl (12.0-15.5); LYMPH # 1.7 10^3/uL (1.5-4.5); LYMPH % 25.9 % (24.0-44.0); MEAN CORPUSCULAR HEMOGLOBIN 34.7 pg (27.0-33.0); MEAN CORPUSCULAR HGB CONC 35.5 g/dl (32.0-36.5); MEAN CORPUSCULAR VOLUME 97.7 fl (80.0-96.0); MONO # 0.5 10^3/uL (0.0-0.8); NEUTROPHILS # 4.2 10^3/uL (1.8-7.7); NEUTROPHILS % 63.5 % (36.0-66.0); PLATELET COUNT, AUTOMATED 244 10^3/uL (150-450); RED BLOOD COUNT 3.98 10^6/uL (4.00-5.40); WHITE BLOOD COUNT 6.6 10^3/uL (4.0-10.0)
[2018-11-25] MEDS ORDERED: NS 500 ML IV ONE ×2 (19:30→20:15)
[2018-11-25 19:45] LABS: ACETAMINOPHEN LEVEL < 2.0 UG/ML (10.0-30.0); ALBUMIN 3.6 GM/DL (3.2-5.2); ALT/SGPT 23 U/L (12-78); BILIRUBIN,DIRECT 0.2 MG/DL (0.0-0.2); BILIRUBIN,TOTAL 0.4 MG/DL (0.2-1.0); BLOOD UREA NITROGEN 4 MG/DL (7-18); CALCIUM LEVEL 8.1 MG/DL (8.8-10.2); CARBON DIOXIDE LEVEL 25 MEQ/L (21-32); CHLORIDE LEVEL 90 MEQ/L (98-107); CPK CREATINE PHOSPHOKINASE 151 U/L (26-192); CREATININE FOR GFR 0.38 MG/DL (0.55-1.30); ETHYL ALCOHOL (ETHANOL) 0.295 % (0.000-0.010); GLOMERULAR FILTRATION RATE > 60.0 (>45); GLUCOSE, FASTING 83 MG/DL (70-100); MAGNESIUM LEVEL 1.9 MG/DL (1.8-2.4); POTASSIUM SERUM 3.9 MEQ/L (3.5-5.1); SALICYLATE LEVEL 2.1 MG/DL (5.0-30.0); SODIUM LEVEL 124 MEQ/L (136-145); THYROID STIMULATING HORMONE 0.898 uIU/ML (0.358-3.740); TOTAL PROTEIN 6.9 GM/DL (6.4-8.2)
[2018-11-25 20:57] VITALS: BP 130/85
--- NOTE | 2018-11-26 09:13 | REP ---
HISTORY: Pain after trauma. COMPARISON: None. There is degenerative change seen throughout the thoracic spine with anterior lipping and disc space narrowing. Vertebral body height and alignment is within normal limits. There is no plain radiographic evidence of a fracture. IMPRESSION: Chronic changes. Electronically Signed by Castillo Mckeon DO 11/26/2018 10:03 A
--- NOTE | 2018-11-26 09:16 | REP ---
HISTORY: Pain after trauma. COMPARISON: None. There is partial syndesmophyte formation seen bilaterally at every level. There is a slight grade 1 L4 upon L5 spondylolisthesis. There is no evidence of spondylolysis. There is bilateral hypertrophic degenerative facet joint change seen at every level, but particularly at L4-5. There is disc space narrowing seen mildly to moderately at every level. Vertebral body height is within normal limits. The pedicles are intact bilaterally. IMPRESSION: There is a grade 1 L4 upon L5 spondylolisthesis which is secondary to degenerative changes as described above. This has increased slightly when compared to the prior examination of 03/23/2016. Other chronic changes as described above, also slightly increased. Electronically Signed by Castillo Mckeon DO 11/26/2018 10:03 A
--- NOTE | 2018-11-26 09:20 | REP ---
HISTORY: Pain after trauma. COMPARISON: None. RIGHT FEMUR: There is moderate to severe asymmetric hip joint space narrowing with a cam deformity noted involving the femoral head. There is no acute fracture, dislocation or subluxation. LEFT FEMUR: Two views of the left femur show moderate to severe asymmetric hip joint space narrowing. There is no acute fracture, dislocation or subluxation. IMPRESSION: Chronic changes. Electronically Signed by Castillo Mckeon DO 11/26/2018 10:03 A
--- NOTE | 2018-11-26 21:31 | ECGEPIP ---
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
== END 2018-11-25 20:59 | disposition home or self-care (01) ==
LOC: EDBD 17:27 → M ED 17:27
DX: F10.229 Alcohol dependence with intoxication, unspecified (principal); Y90.1 Blood alcohol level of 20-39 mg/100 ml; E87.1 Hypo-osmolality and hyponatremia; I10 Essential (primary) hypertension; J44.9 Chronic obstructive pulmonary disease, unspecified; E07.9 Disorder of thyroid, unspecified; E78.9 Disorder of lipoprotein metabolism, unspecified; M19.90 Unspecified osteoarthritis, unspecified site; M48.00 Spinal stenosis, site unspecified; G89.29 Other chronic pain; M54.9 Dorsalgia, unspecified; Z79.899 Other long term (current) drug therapy; Z79.890 Hormone replacement therapy; F17.210 Nicotine dependence, cigarettes, uncomplicated
CPT/HCPCS: 70450; 72072; 72110; 72125; 73552; 80047; 80048; 80076; 82550; 83735; 84443; 85025; 93005; 93041; 94760; 96360; 96361; 99285; G0480

== ENCOUNTER → 2018-12-10 | Outpatient (CLI) | payer OTHER ==
[~2018-12-10] MED LIST changes: -ASPI-222 PO; +ASPI-527 PO; -MECL-68 PO; +MECL1TAB31 PO; +OMEP40CA97 PO; +PRED5PAK2 PO; +XALA0.007 OU
[2018-12-10 16:57] LABS: ALBUMIN 3.7 GM/DL (3.2-5.2); ALT/SGPT 21 U/L (12-78); AMYLASE 126 U/L (25-115); BASO % 0.9 % (0.0-1.0); BILIRUBIN,DIRECT 0.2 MG/DL (0.0-0.2); BILIRUBIN,TOTAL 0.6 MG/DL (0.2-1.0); BLOOD UREA NITROGEN 5 MG/DL (7-18); CALCIUM LEVEL 9.4 MG/DL (8.8-10.2); CARBON DIOXIDE LEVEL 29 MEQ/L (21-32); CHLORIDE LEVEL 99 MEQ/L (98-107); CREATININE FOR GFR 0.55 MG/DL (0.55-1.30); EOS # 0.1 10^3/uL (0.0-0.50); EOS % 2.8 % (0.0-3.0); GLOMERULAR FILTRATION RATE > 60.0 (>45); GLUCOSE, FASTING 95 MG/DL (70-100); HEMATOCRIT 40.6 % (36.0-47.0); HEMOGLOBIN 13.8 g/dl (12.0-15.5); LIPASE 122 U/L (73-393); LYMPH # 1.5 10^3/uL (1.5-4.5); LYMPH % 31.8 % (24.0-44.0); MEAN CORPUSCULAR HEMOGLOBIN 34.1 pg (27.0-33.0); MEAN CORPUSCULAR VOLUME 100.2 fl (80.0-96.0); MONO # 0.6 10^3/uL (0.0-0.8); MONO % 12.2 % (0.0-5.0); NEUTROPHILS # 2.4 10^3/uL (1.8-7.7); NEUTROPHILS % 52.1 % (36.0-66.0); PLATELET COUNT, AUTOMATED 325 10^3/uL (150-450); POTASSIUM SERUM 4.5 MEQ/L (3.5-5.1); RED BLOOD COUNT 4.05 10^6/uL (4.00-5.40); SODIUM LEVEL 133 MEQ/L (136-145); TOTAL PROTEIN 7.2 GM/DL (6.4-8.2); WHITE BLOOD COUNT 4.7 10^3/uL (4.0-10.0)
[2018-12-10 17:22] LABS: INR 0.89; PARTIAL THROMBOPLASTIN TIME 29.7 SECONDS (25.0-38.4); PROTHROMBIN TIME 11.8 SECONDS (11.8-14.0)
== END ==
LOC: M ADAMS 08:27
PROVIDERS: ATTEND Internal Medicine Gastroenterology
DX: R63.4 Abnormal weight loss (principal)

== ENCOUNTER → 2018-12-11 | Outpatient (CLI) | payer OTHER ==
--- NOTE | 2018-12-12 18:51 | REP ---
Clinical: Abnormal weight loss. Technique: Real time vail scale ultrasound examination using curved array transducer. Findings: Liver, spleen and visualized pancreas are normal in contour, size, echogenicity without focal hepatic, splenic or pancreatic lesion identified. Gallbladder demonstrates sludge and small stones without wall thickening or pericholecystic fluid. No biliary ductal dilatation is appreciated and the common bile duct measures 3.0 mm diameter. Bilateral kidneys are normal in reniform shape without hydronephrosis. Right kidney measures 10.3 x 4.9 x 4.0 cm. Left kidney measures 10.3 x 4.6 x 6.6 cm and includes 1.4 cm upper pole cyst. Abdominal aorta appears normal and measures 1.9 cm maximal diameter. Trace amount of perihepatic fluid is nonspecific. Impression: 1. Cholelithiasis. 2. Trace perihepatic free fluid is nonspecific. 3. 1.4 cm left renal cyst. Electronically Signed by Gabe Chicas MD 12/12/2018 06:43 P
== END ==
LOC: M RAD 08:59
PROVIDERS: ATTEND Internal Medicine Gastroenterology
DX: R63.4 Abnormal weight loss (principal); K80.20 Calculus of gallbladder without cholecystitis without obstruction; N28.1 Cyst of kidney, acquired

== ENCOUNTER 2018-12-29 11:24 | Day surgery (SDC) | payer OTHER ==
[~2018-12-29] VITALS: Ht 162.6 cm; Wt 55.7 kg
[~2018-12-29 11:24] MED LIST changes: +MECL-68 PO; -MECL1TAB31 PO; +OMEP40CA2 PO; -OMEP40CA97 PO
[2018-12-29] MEDS ORDERED: NS 1,000 ML IV ONE (12:00)
[2018-12-29] MEDS ORDERED: LIDOCAINE 2% INJ 100 MG/5 ML SDV (FOR ANES.) As Ordered ONE (13:30)
[2018-12-29] MEDS ORDERED: PROPOFOL 200 MG/20 ML VIAL As Ordered ONE (13:30)
--- NOTE | 2018-12-29 14:04 | ROOR ---
Patient Name: Elisa Carpio Procedure Date: 12/29/2018 1:39 PM Date of : 1955 Age: 63 Room: [facility] Gender: Female Note Status: Finalized Procedure: Upper GI endoscopy Indications: Epigastric abdominal pain, Dyspepsia Providers: Derrick Maya MD Referring MD: RONAL PADILLA NP Requesting Provider: Medicines: Monitored Anesthesia Care Complications: No immediate complications. Procedure: Pre-Anesthesia Assessment: - Prior to the procedure, a History and Physical was performed, and patient medications and allergies were reviewed. The patient is competent. The risks and benefits of the procedure and the sedation options and risks were discussed with the patient. All questions were answered and informed consent was obtained. Patient identification and proposed procedure were verified by the physician, the nurse and the anesthesiologist in the procedure room. Mental Status Examination: alert and oriented. Airway Examination: normal oropharyngeal airway and neck mobility. Respiratory Examination: clear to auscultation. CV Examination: normal. Prophylactic Antibiotics: The patient does not require prophylactic antibiotics. Prior Anticoagulants: The patient has taken no previous anticoagulant or antiplatelet agents. ASA Grade Assessment: II - A patient with mild systemic disease. After reviewing the risks and benefits, the patient was deemed in satisfactory condition to undergo the procedure. The anesthesia plan was to use monitored anesthesia care (MAC). Immediately prior to administration of medications, the patient was re-assessed for adequacy to receive sedatives. The heart rate, respiratory rate, oxygen saturations, blood pressure, adequacy of pulmonary ventilation, and response to care were monitored throughout the procedure. The physical status of the patient was re-assessed after the procedure. The Endoscope was introduced through the mouth, and advanced to the second part of duodenum. The upper GI endoscopy was accomplished without difficulty. The patient tolerated the procedure well. Findings: LA Grade B (one or more mucosal breaks greater than 5 mm, not extending between the tops of two mucosal folds) esophagitis with no bleeding was found in the distal esophagus. Biopsies were taken with a cold forceps for histology. Verification of patient identification for the specimen was done by the physician and nurse using the patient's name, date and medical record number. Estimated blood loss was minimal. 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 A medium-sized hiatal hernia was present. Diffuse moderate inflammation characterized by erythema, friability and granularity was found in the gastric antrum. Biopsies were taken with a cold forceps for Helicobacter pylori testing. The duodenal bulb and second portion of the duodenum were normal. Biopsies for histology were taken with a cold forceps for evaluation of celiac disease. Impression: - LA Grade B reflux esophagitis. Rule out Boston's esophagus. Biopsied. - Ectopic gastric mucosa in the upper third of the esophagus. - Medium-sized hiatal hernia. - Gastritis. Biopsied. - Normal duodenal bulb and second portion of the duodenum. Biopsied. Recommendation: - Patient has a contact number available for emergencies. The signs and symptoms of potential delayed complications were discussed with the patient. Return to normal activities tomorrow. Written discharge instructions were provided to the patient. - Resume previous diet. - Follow an antireflux regimen. - Use Protonix (pantoprazole) 40 mg PO twice daily - to be taken in morning (1/2 hour before breakfast) and at bedtime ( atleast 3 hours after last meal) for 12 weeks. - Await pathology results. - Telephone GI clinic for pathology results in 2 weeks. - Return to GI clinic in 3 months. - Return to primary care physician. Derrick Maya MD Derrick Maya MD 12/29/2018 2:03:45 PM Electronically signed by Derrick Maya MD Number of Addenda: 0 Note Initiated On: 12/29/2018 1:39 PM Estimated Blood Loss: Estimated blood loss was minimal.
[2018-12-29 14:56] VITALS: BP 183/82
== END 2018-12-29 14:50 | disposition home or self-care (01) ==
LOC: M OPP 11:24
PROVIDERS: ATTEND Internal Medicine Gastroenterology
DX: K21.0 Gastro-esophageal reflux disease with esophagitis (principal); Q40.2 Other specified congenital malformations of stomach; K44.9 Diaphragmatic hernia without obstruction or gangrene; K29.70 Gastritis, unspecified, without bleeding; R63.4 Abnormal weight loss; R10.13 Epigastric pain; Z79.899 Other long term (current) drug therapy

== ENCOUNTER → 2019-02-11 | Outpatient (CLI) | payer OTHER ==
[~2019-02-11] MED LIST changes: -OMEP40CA2 PO; +OMEP40CA97 PO
[2019-02-11 18:05] LABS: HEMATOCRIT 43.9 % (36.0-47.0); HEMOGLOBIN 14.9 g/dl (12.0-15.5); MEAN CORPUSCULAR HEMOGLOBIN 33.2 pg (27.0-33.0); MEAN CORPUSCULAR HGB CONC 33.9 g/dl (32.0-36.5); MEAN CORPUSCULAR VOLUME 97.8 fl (80.0-96.0); PLATELET COUNT, AUTOMATED 303 10^3/uL (150-450); RED BLOOD COUNT 4.49 10^6/uL (4.00-5.40); WHITE BLOOD COUNT 6.7 10^3/uL (4.0-10.0)
[2019-02-11 18:16] LABS: ALBUMIN 3.7 GM/DL (3.2-5.2); ALT/SGPT 25 U/L (12-78); BLOOD UREA NITROGEN 8 MG/DL (7-18); CALCIUM LEVEL 8.8 MG/DL (8.8-10.2); CARBON DIOXIDE LEVEL 28 MEQ/L (21-32); CHLORIDE LEVEL 93 MEQ/L (98-107); CHOLESTEROL LEVEL 207 MG/DL (<200); CHOLESTEROL RISK RATIO 1.669 (<5); CPK CREATINE PHOSPHOKINASE 111 U/L (26-192); CREATININE FOR GFR 0.62 MG/DL (0.55-1.30); FREE T4 1.42 NG/DL (0.76-1.46); GLOMERULAR FILTRATION RATE > 60.0 (>45); GLUCOSE, FASTING 99 MG/DL (70-100); HDL CHOLESTEROL 124 MG/DL (>40); LDL CHOLESTEROL 71 MG/DL (<100); NON-HDL-C 83 MG/DL; SODIUM LEVEL 128 MEQ/L (136-145); THYROID STIMULATING HORMONE 0.557 uIU/ML (0.358-3.740); TOTAL PROTEIN 7.5 GM/DL (6.4-8.2); TRIGLYCERIDES LEVEL 59 MG/DL (<150)
== END ==
LOC: M LABDRWAD 08:09
PROVIDERS: ATTEND Nurse Practitioner Family
DX: I10 Essential (primary) hypertension (principal); E78.5 Hyperlipidemia, unspecified; E03.9 Hypothyroidism, unspecified

== ENCOUNTER → 2019-03-07 | Outpatient (REF) | payer MEDICARE, MEDICAID ==
[2019-03-07 13:44] LABS: PLATELET COUNT, AUTOMATED 333 10^3/uL (150-450)
[2019-03-07 13:56] LABS: PROTHROMBIN TIME 12.9 SECONDS (11.8-14.0)
[2019-03-07 13:57] LABS: PARTIAL THROMBOPLASTIN TIME 30.2 SECONDS (25.0-38.4)
== END ==
LOC: M LAB REF 13:11
PROVIDERS: ATTEND Internal Medicine Pulmonary Disease
DX: R91.8 Other nonspecific abnormal finding of lung field (principal); Z79.899 Other long term (current) drug therapy

== ENCOUNTER 2019-03-14 10:28 | Day surgery (SDC) | payer MEDICARE, MEDICAID ==
[~2019-03-14] VITALS: Ht 162.6 cm; Wt 56.2 kg
[~2019-03-14 10:28] MED LIST changes: +LIDOCAINE 1% MDV 20ML VIAL SQ PRN; +LIDOCAINE 2% INJ 100 MG/5 ML SDV (FOR ANES.) As Ordered ONE; +LR 1,000 ML IV ONE; +MIDAZOLAM INJ 2 MG/2 ML VIAL (J2250) As Ordered ONE; +ONDANSETRON 4MG/2ML VIAL (J2405) As Ordered ONE; +PROPOFOL 200 MG/20 ML VIAL As Ordered ONE; +ROCURONIUM BROMIDE 50 MG/5 ML VIAL As Ordered ONE; +SUGAMMADEX SODIUM 500 MG/5 ML VIAL (BRIDION) As Ordered ONE; +dexameTHASONE 4 MG/ML 1ML VIAL (J1100) As Ordered ONE; +fentaNYL 100 MCG/2 ML INJECTION (J3010) As Ordered ONE
[2019-03-14] MEDS ORDERED: THROMBIN SOLN 5,000 UNITS VIAL As Ordered ONE (11:24)
[2019-03-14] MEDS ORDERED: LIDOCAINE VISCOUS 2% SOLN 15ML UDC As Ordered ONE (11:24)
[2019-03-14] MEDS ORDERED: CETACAINE SPRAY 5GM As Ordered ONE (11:24)
[2019-03-14] MEDS ORDERED: LIDOCAINE 4% TOPICAL SOLN 50 ML BTL As Ordered ONE (11:24)
[2019-03-14] MEDS ORDERED: LIDOCAINE 1% SDV INJ 30 ML VIAL As Ordered ONE (11:24)
[2019-03-14] MEDS ORDERED: EPINEPHrine 1MG/10ML SYRINGE 1.5IN As Ordered ONE (11:26)
[2019-03-14] MEDS ORDERED: PERCOCET 5MG/325MG TAB PO PRN (13:00)
[2019-03-14] MEDS ORDERED: fentaNYL 100 MCG/2 ML INJECTION (J3010) IV PRN (13:00)
[2019-03-14] MEDS ORDERED: METOCLOPRAMIDE INJ 10MG/2ML VIAL (J2765) IV PRN (13:00)
[2019-03-14] MEDS ORDERED: LR 1,000 ML IV SCH (13:00)
[2019-03-14] MEDS ORDERED: ONDANSETRON 4MG/2ML VIAL (J2405) IV PRN (13:00)
--- NOTE | 2019-03-14 13:17 | RO ---
DATE OF PROCEDURE: 03/14/2019 PREOPERATIVE DIAGNOSIS: Abnormal chest x-ray. POSTOPERATIVE DIAGNOSES: Abnormal chest x-ray with chronic obstructive bronchitis. PROCEDURE: Fiberoptic bronchoscopy with navigation assistance under fluoroscopy. 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 Informed consent was obtained prior to the procedure. OPERATIVE FINDINGS: Diffuse changes of chronic obstructive bronchitis. DESCRIPTION OF PROCEDURE: After the patient identified and the above anesthesia given, the fiberoptic bronchoscope was passed via the existing endotracheal tube. It was found to be in good position. The exam of the right and left lung were undertaken in a sequential fashion. All segments, subsegments of upper, middle, and lower lobes on the right and upper and lower lobes on the left all widely patent. Diffuse changes of chronic bronchitis were noted. Some thick, clear secretions were encountered and able to be suctioned clear. The navigation portion of the procedure was then undertaken. The left upper lobe lesion was navigated first. No satisfactory airway was able to be seen into the center of the lesion in question, but the periphery was able to be navigated to. Washes and brushes for cytology and microbiology were taken. The area was then lavaged. Fluoroscopy showed no evidence of pneumothorax. The lesion in the right lower lobe was then navigated to. Again, no satisfactory airway was able to be found to the middle of the lesion, but cytology and microbiology brushes as well as washes of the area were taken. Again, fluoroscopic examination postprocedure showed no pneumothorax. Assurance that there was no active bleeding. Care was then turned over to anesthesia for extubation. No immediate complications of general anesthesia were identified. Chest x-ray is ordered for 1 hour postprocedure. [facility]
--- NOTE | 2019-03-14 13:37 | REP ---
C-ARM VIEWS CHEST: Two C-arm views of the chest are performed during bronchoscopy. The first image shows bronchoscope with the distal tip in the region of the left upper lobe. The second image shows the bronchoscope with the distal tip in the region of the right lung base. 1 minute 45 seconds fluoroscopy time utilized. Electronically Signed by Siddhartha [place] MD 03/14/2019 02:06 P
--- NOTE | 2019-03-14 13:58 | REP ---
Clinical: Postoperative evaluation. Comparison: 10/18/2018. Findings: Mediastinum and cardiac silhouette are within normal limits. Lung parker demonstrate diffuse chronic interstitial changes similar to prior examination. No obvious focal consolidation, effusion, or pneumothorax. Bilateral nipple shadows noted. Skeletal structures intact. Impression: Diffuse chronic stable changes. No consolidation, effusion, or pneumothorax. Electronically Signed by Gabe Chicas MD 03/14/2019 01:49 P
[2019-03-14] MEDS ORDERED: ACETAMINOPHEN TAB 650MG DOSE (2X325MG) PO ONE (14:30)
[2019-03-14 14:50] VITALS: BP 144/67
== END 2019-03-14 15:05 | disposition home or self-care (01) ==
LOC: M SDC 10:28
PROVIDERS: ATTEND Internal Medicine Pulmonary Disease
DX: J44.9 Chronic obstructive pulmonary disease, unspecified (principal); R91.8 Other nonspecific abnormal finding of lung field; I10 Essential (primary) hypertension; E03.9 Hypothyroidism, unspecified; R63.4 Abnormal weight loss; R23.3 Spontaneous ecchymoses; R06.02 Shortness of breath; M12.9 Arthropathy, unspecified; M51.36 Other intervertebral disc degeneration, lumbar region; H26.9 Unspecified cataract; H40.9 Unspecified glaucoma; R06.83 Snoring; F17.218 Nicotine dependence, cigarettes, with other nicotine-induced disorders; Z79.899 Other long term (current) drug therapy; Z79.52 Long term (current) use of systemic steroids; Z90.710 Acquired absence of both cervix and uterus; Z78.0 Asymptomatic menopausal state
CPT/HCPCS: 31623; 71045; 76000; 87070; 87071; 87077; 87102; 87116; 87184; 87205; 87206; 88104; J1100; J2250; J2405; J3010

== ENCOUNTER → 2019-06-25 | Outpatient (CLI) | payer MEDICARE, MEDICAID ==
[~2019-06-25] MED LIST changes: -LIDOCAINE 1% MDV 20ML VIAL SQ PRN; -LIDOCAINE 2% INJ 100 MG/5 ML SDV (FOR ANES.) As Ordered ONE; -LR 1,000 ML IV ONE; -MECL-68 PO; +MECL1TAB31 PO; -MIDAZOLAM INJ 2 MG/2 ML VIAL (J2250) As Ordered ONE; -ONDANSETRON 4MG/2ML VIAL (J2405) As Ordered ONE; -PROPOFOL 200 MG/20 ML VIAL As Ordered ONE; -ROCURONIUM BROMIDE 50 MG/5 ML VIAL As Ordered ONE; -SUGAMMADEX SODIUM 500 MG/5 ML VIAL (BRIDION) As Ordered ONE; -dexameTHASONE 4 MG/ML 1ML VIAL (J1100) As Ordered ONE; -fentaNYL 100 MCG/2 ML INJECTION (J3010) As Ordered ONE
--- NOTE | 2019-06-25 09:07 | REP ---
Chest x-ray: Two views. History: COPD. Hypertension. Comparison chest x-ray: March 14, 2019. Findings: There are surgical clips on either side of the trachea in the neck consistent with previous thyroidectomy. There is pleuroparenchymal scarring in the left upper lobe in the apex. This is unchanged from more remote prior chest x-ray dated August 31, 2016. The lungs are hyperinflated consistent with COPD. Pleural angles are sharp. The heart is not enlarged. Vascular calcification is noted. No acute infiltrate is seen. Impression: Hyperinflation consistent with COPD. Left apical pleuroparenchymal scarring. Prior thyroidectomy. Otherwise no acute disease. Electronically Signed by Omar Hyman MD 06/25/2019 10:52 A
[2019-06-25 13:06] LABS: HEMATOCRIT 44.9 % (36.0-47.0); HEMOGLOBIN 15.2 g/dl (12.0-15.5); MEAN CORPUSCULAR HEMOGLOBIN 34.2 pg (27.0-33.0); MEAN CORPUSCULAR HGB CONC 33.9 g/dl (32.0-36.5); MEAN CORPUSCULAR VOLUME 101.1 fl (80.0-96.0); PLATELET COUNT, AUTOMATED 346 10^3/uL (150-450); RED BLOOD COUNT 4.44 10^6/uL (4.00-5.40); WHITE BLOOD COUNT 5.5 10^3/uL (4.0-10.0)
[2019-06-25 13:19] LABS: ALBUMIN 3.6 GM/DL (3.2-5.2); ALT/SGPT 22 U/L (12-78); BILIRUBIN,TOTAL 0.8 MG/DL (0.2-1.0); BLOOD UREA NITROGEN 10 MG/DL (7-18); CARBON DIOXIDE LEVEL 26 MEQ/L (21-32); CHLORIDE LEVEL 102 MEQ/L (98-107); CREATININE FOR GFR 0.65 MG/DL (0.55-1.30); GLOMERULAR FILTRATION RATE > 60.0 (>45); GLUCOSE, FASTING 101 MG/DL (70-100); POTASSIUM SERUM 4.6 MEQ/L (3.5-5.1); SODIUM LEVEL 134 MEQ/L (136-145); TOTAL PROTEIN 7.3 GM/DL (6.4-8.2)
== END ==
LOC: M ADAMS 08:12
PROVIDERS: ATTEND Internal Medicine Cardiovascular Disease
DX: Z01.818 Encounter for other preprocedural examination (principal); J44.9 Chronic obstructive pulmonary disease, unspecified; I10 Essential (primary) hypertension

== ENCOUNTER → 2019-07-08 | Outpatient (CLI) | payer MEDICARE, MEDICAID ==
[2019-07-09 10:33] LABS: FOLATE 10.7 NG/ML (>5.4)
== END ==
LOC: M ADAMS 08:18
PROVIDERS: ATTEND Nurse Practitioner Family
DX: D51.9 Vitamin B12 deficiency anemia, unspecified (principal)

== ENCOUNTER → 2019-10-24 | Outpatient (CLI) | payer MEDICARE, MEDICAID ==
[~2019-10-24] MED LIST changes: +AMLO1TAB24 PO; -AMLO5TAB6 PO
[2019-10-24 13:09] LABS: ALBUMIN 2.9 GM/DL (3.2-5.2); ALT/SGPT 13 U/L (12-78); BILIRUBIN,TOTAL 1.1 MG/DL (0.2-1.0); BLOOD UREA NITROGEN 13 MG/DL (7-18); CALCIUM LEVEL 9.1 MG/DL (8.8-10.2); CARBON DIOXIDE LEVEL 26 MEQ/L (21-32); CHLORIDE LEVEL 97 MEQ/L (98-107); CREATININE FOR GFR 0.84 MG/DL (0.55-1.30); GLOMERULAR FILTRATION RATE > 60.0 (>45); GLUCOSE, FASTING 135 MG/DL (70-100); LIPASE 42 U/L (73-393); POTASSIUM SERUM 3.7 MEQ/L (3.5-5.1); SODIUM LEVEL 132 MEQ/L (136-145); TOTAL PROTEIN 7.1 GM/DL (6.4-8.2)
[2019-10-24 13:17] LABS: HEMATOCRIT 44.8 % (36.0-47.0); HEMOGLOBIN 15.1 g/dl (12.0-15.5); MEAN CORPUSCULAR HEMOGLOBIN 34.1 pg (27.0-33.0); MEAN CORPUSCULAR HGB CONC 33.7 g/dl (32.0-36.5); MEAN CORPUSCULAR VOLUME 101.1 fl (80.0-96.0); PLATELET COUNT, AUTOMATED 330 10^3/uL (150-450); RED BLOOD COUNT 4.43 10^6/uL (4.00-5.40); WHITE BLOOD COUNT 18.1 10^3/uL (4.0-10.0)
[2019-10-24 14:12] LABS: LYMPHOCYTES 9 % (16-44); MONOCYTES 8 % (0-5); NEUTROPHILS 82 % (28-66); PLATELET ESTIMATE NORMAL (NORMAL)
== END ==
LOC: M LABDRWAD 09:21
PROVIDERS: ATTEND Physician Assistant
DX: R10.84 Generalized abdominal pain (principal); R14.0 Abdominal distension (gaseous)

== ENCOUNTER → 2019-10-24 | Outpatient (CLI) | payer MEDICARE ==
[~2019-10-24] MED LIST changes: -AMLO1TAB24 PO; +AMLO5TAB6 PO; +GASTROGRAFIN SOLUTION 30ML (Q9963) As Ordered ONE; +ISOVUE-370 76% 100ML VIAL As Ordered ONE
--- NOTE | 2019-10-25 01:30 | REP ---
REASON FOR EXAM: Generalized abdominal pain with abdominal distention. Latest prior for comparison 06/16/2018. CONTRAST: 100 mL Isovue-370. Stable chronic changes are seen in the lung bases. The liver, gallbladder, spleen, pancreas, adrenal glands, and kidneys are essentially unchanged and again seen to be within normal limits. The abdominal aorta and para-aortic regions are essentially unchanged and again seen to be within normal limits. The intra-abdominal and intrapelvic bowel loops and their mesenteries are within normal limits. The bowel wall thickening seen on the prior examination has resolved. There is no free fluid or free air in the abdomen or pelvis. Bone window technique throughout the examination shows the osseous structures to be unchanged. There are chronic spinal degenerative changes, status quo. IMPRESSION: There is no CT evidence of acute intra-abdominal or intrapelvic disease. Electronically Signed by Castillo Mckeon DO 10/25/2019 11:25 A
== END ==
LOC: M RAD 12:26
PROVIDERS: ATTEND Physician Assistant
DX: R91.8 Other nonspecific abnormal finding of lung field (principal); R10.84 Generalized abdominal pain; R14.0 Abdominal distension (gaseous)
CPT/HCPCS: 36415; 74021; 74177; 80053; 83690; 85025; 87086; Q9963; Q9967

== ENCOUNTER → 2019-10-24 | Outpatient (CLI) | payer MEDICARE, MEDICAID ==
[~2019-10-24] MED LIST changes: +AMLO1TAB24 PO; -AMLO5TAB6 PO; -GASTROGRAFIN SOLUTION 30ML (Q9963) As Ordered ONE; -ISOVUE-370 76% 100ML VIAL As Ordered ONE
--- NOTE | 2019-10-24 10:54 | REP ---
ABDOMINAL SERIES: Supine and erect views of the abdomen demonstrate no evidence of free intraperitoneal air and no compelling evidence of small bowel obstruction. Air and fecal material is scattered throughout a nondistended colon. There also appears to be mild air in small bowel loops in the lower abdomen and pelvis. 5 mm calcification in the left abdomen may represent a renal calculus. There are scattered vascular calcifications. There are phleboliths in the pelvis. There are degenerative changes of the spine and hips. An accompanying view of the chest demonstrates acute infiltrate in the left upper lobe. There are chronic changes in both lung bases. The heart is normal in size. Mediastinal silhouette is unchanged. IMPRESSION: No free air or obstruction. Possible left renal calculus 5 mm in diameter. Left upper lobe infiltrate. Electronically Signed by Siddhartha [place] MD 10/25/2019 09:24 A
== END ==
LOC: M ADAMS 09:17
PROVIDERS: ATTEND Physician Assistant
DX: R91.8 Other nonspecific abnormal finding of lung field (principal); R10.84 Generalized abdominal pain; R14.0 Abdominal distension (gaseous)

== ENCOUNTER → 2019-10-31 | Outpatient (REF) | payer MEDICARE ==
[2019-10-31 13:40] LABS: HEMATOCRIT 42.1 % (36.0-47.0); HEMOGLOBIN 14.2 g/dl (12.0-15.5); MEAN CORPUSCULAR HEMOGLOBIN 34.1 pg (27.0-33.0); MEAN CORPUSCULAR HGB CONC 33.7 g/dl (32.0-36.5); MEAN CORPUSCULAR VOLUME 101.2 fl (80.0-96.0); PLATELET COUNT, AUTOMATED 741 10^3/uL (150-450); RED BLOOD COUNT 4.16 10^6/uL (4.00-5.40); WHITE BLOOD COUNT 9.8 10^3/uL (4.0-10.0)
[2019-10-31 14:04] LABS: ALBUMIN 2.5 GM/DL (3.2-5.2); ALT/SGPT 18 U/L (12-78); BILIRUBIN,TOTAL 0.4 MG/DL (0.2-1.0); BLOOD UREA NITROGEN 7 MG/DL (7-18); CALCIUM LEVEL 8.4 MG/DL (8.8-10.2); CARBON DIOXIDE LEVEL 29 MEQ/L (21-32); CHLORIDE LEVEL 99 MEQ/L (98-107); CHOLESTEROL LEVEL 174 MG/DL (<200); CHOLESTEROL RISK RATIO 3.346 (<5); CPK CREATINE PHOSPHOKINASE 48 U/L (26-192); GLOMERULAR FILTRATION RATE > 60.0 (>45); GLUCOSE, FASTING 88 MG/DL (70-100); HDL CHOLESTEROL 52 MG/DL (>40); LDL CHOLESTEROL 106 MG/DL (<100); NON-HDL-C 122 MG/DL; SODIUM LEVEL 137 MEQ/L (136-145); TOTAL PROTEIN 7.1 GM/DL (6.4-8.2); TRIGLYCERIDES LEVEL 81 MG/DL (<150)
== END ==
LOC: M LABDRWAD 12:39
PROVIDERS: ATTEND Nurse Practitioner Family
DX: E78.5 Hyperlipidemia, unspecified (principal); I10 Essential (primary) hypertension

== ENCOUNTER → 2020-05-22 | Outpatient (CLI) | payer OTHER ==
--- NOTE | 2020-05-22 09:09 | REPMRS ---
Patient History The patient states she had a clinical breast exam in 06/2019 Family history of breast cancer at age 58 in mother, ovarian cancer at age 60 in sister. Digital Woman Screen Mammo: May 22, 2020 - Exam #: [id number] Bilateral CC and MLO view(s) were taken. Technologist: Layne León, Technologist Prior study comparison: April 21, 2018, bilateral digital woman screen mammo performed at [facility]. February 14, 2017, digital woman screen mammo performed at [facility]. February 12, 2016, digital woman screen mammo performed at [facility]. FINDINGS: The breast tissue is heterogeneously dense. This may lower the sensitivity of mammography. The Volpara volumetric breast density category is: C. There is a moderate amount of heterogeneously dense fibroglandular tissue which is fairly symmetric. There is no interval development of dominant mass, architectural distortion, or grouped microcalcification typical of malignancy. There has been no change in the appearance of the mammogram from the prior studies. 3-D tomosynthesis shows no additional findings. Assessment: BI-RADS/ACR category 1 mammogram. Negative Mammogram. Recommendation Routine screening mammogram of both breasts in 1 year (for women over age 40). This patient's [facility] Lifetime Breast Cancer RIsk is estimated at 8.4 %. This mammogram was interpreted with the aid of an FDA-approved computer-aided dectection system. Electronically Signed By: Joe Hyman MD 05/22/20 [id number]
== END ==
LOC: M WHC 08:28
PROVIDERS: ATTEND Nurse Practitioner Family
DX: Z12.31 Encounter for screening mammogram for malignant neoplasm of breast (principal)

== ENCOUNTER → 2020-06-26 | Outpatient (REF) | payer OTHER ==
[~2020-06-26] MED LIST changes: -VITA250T50 PO; +VITA250T7 PO
[2020-06-26 12:56] LABS: HEMATOCRIT 44.5 % (36.0-47.0); HEMOGLOBIN 14.9 g/dl (12.0-15.5); MEAN CORPUSCULAR HEMOGLOBIN 34.1 pg (27.0-33.0); MEAN CORPUSCULAR HGB CONC 33.5 g/dl (32.0-36.5); MEAN CORPUSCULAR VOLUME 101.8 fl (80.0-96.0); PLATELET COUNT, AUTOMATED 352 10^3/uL (150-450); RED BLOOD COUNT 4.37 10^6/uL (4.00-5.40); WHITE BLOOD COUNT 6.8 10^3/uL (4.0-10.0)
[2020-06-26 13:41] LABS: ALBUMIN 3.8 GM/DL (3.2-5.2); ALT/SGPT 19 U/L (12-78); BILIRUBIN,TOTAL 0.5 MG/DL (0.2-1.0); BLOOD UREA NITROGEN 13 MG/DL (7-18); CARBON DIOXIDE LEVEL 30 MEQ/L (21-32); CHLORIDE LEVEL 102 MEQ/L (98-107); CHOLESTEROL LEVEL 238 MG/DL (<200); CHOLESTEROL RISK RATIO 2.203 (<5); CPK CREATINE PHOSPHOKINASE 74 U/L (26-192); CREATININE FOR GFR 0.62 MG/DL (0.55-1.30); FREE T4 1.09 NG/DL (0.76-1.46); GLOMERULAR FILTRATION RATE > 60.0 (>45); GLUCOSE, FASTING 79 MG/DL (70-100); HDL CHOLESTEROL 108 MG/DL (>40); LDL CHOLESTEROL 119 MG/DL (<100); NON-HDL-C 130 MG/DL; SODIUM LEVEL 137 MEQ/L (136-145); TOTAL PROTEIN 7.1 GM/DL (6.4-8.2); TRIGLYCERIDES LEVEL 57 MG/DL (<150)
== END ==
LOC: M LABDRWAD 12:26
PROVIDERS: ATTEND Nurse Practitioner Family
DX: I10 Essential (primary) hypertension (principal); E78.5 Hyperlipidemia, unspecified; E03.9 Hypothyroidism, unspecified

== ENCOUNTER → 2020-10-15 | Outpatient (REF) | payer OTHER ==
[~2020-10-15] MED LIST changes: +OMEP40CA4 PO; -OMEP40CA97 PO
[2020-10-15 13:34] LABS: HEMATOCRIT 44.4 % (36.0-47.0); HEMOGLOBIN 14.7 g/dl (12.0-15.5); MEAN CORPUSCULAR HEMOGLOBIN 33.9 pg (27.0-33.0); MEAN CORPUSCULAR HGB CONC 33.1 g/dl (32.0-36.5); MEAN CORPUSCULAR VOLUME 102.5 fl (80.0-96.0); PLATELET COUNT, AUTOMATED 326 10^3/uL (150-450); RED BLOOD COUNT 4.33 10^6/uL (4.00-5.40); WHITE BLOOD COUNT 6.6 10^3/uL (4.0-10.0)
[2020-10-15 14:06] LABS: ALBUMIN 3.8 GM/DL (3.2-5.2); ALT/SGPT 19 U/L (12-78); BILIRUBIN,TOTAL 0.6 MG/DL (0.2-1.0); BLOOD UREA NITROGEN 7 MG/DL (7-18); CARBON DIOXIDE LEVEL 29 MEQ/L (21-32); CHLORIDE LEVEL 103 MEQ/L (98-107); CHOLESTEROL LEVEL 233 MG/DL (<200); CHOLESTEROL RISK RATIO 2.118 (<5); CPK CREATINE PHOSPHOKINASE 69 U/L (26-192); CREATININE FOR GFR 0.54 MG/DL (0.55-1.30); FREE T4 1.33 NG/DL (0.76-1.46); GLOMERULAR FILTRATION RATE > 60.0 (>45); GLUCOSE, FASTING 76 MG/DL (70-100); HDL CHOLESTEROL 110 MG/DL (>40); LDL CHOLESTEROL 108 MG/DL (<100); NON-HDL-C 123 MG/DL; POTASSIUM SERUM 4.1 MEQ/L (3.5-5.1); SODIUM LEVEL 139 MEQ/L (136-145); TOTAL PROTEIN 7.2 GM/DL (6.4-8.2); TRIGLYCERIDES LEVEL 77 MG/DL (<150)
== END ==
LOC: M LABDRWAD 12:56
PROVIDERS: ATTEND Nurse Practitioner Family
DX: I10 Essential (primary) hypertension (principal); E78.5 Hyperlipidemia, unspecified; E03.9 Hypothyroidism, unspecified

== ENCOUNTER → 2021-01-07 | Outpatient (CLI) | payer OTHER ==
--- NOTE | 2021-01-07 09:51 | REP ---
INDICATION: ABNORMAL FINDING OF LUNG FIELD. COMPARISON: 06/09/2020. TECHNIQUE: CT chest performed without the use of intravenous contrast. Sagittal and coronal reconstruction images are performed. FINDINGS: Lungs: There are multiple calcified granulomas bilaterally. There are areas of parenchymal scarring again seen bilaterally. There is a new band of density in the right upper lobe on image 23 likely representing either progressive fibro atelectasis or small area of infiltrate. There is a stable 3 mm nodule in the right lower lobe on image 55. There is a new subpleural 4 mm nodular density posteriorly in the right lower lobe on image 59. there is a stable ill-defined 4 mm nodular density in the right lower lobe on image 65. There is a stable 7 mm oval nodular density in the left upper lobe on image 42. There is stable consolidative opacity peripherally in the left upper lobe. Mediastinum: There are calcified subcarinal lymph nodes. Shyla: There are calcified hilar lymph nodes bilaterally. Axilla: No gross adenopathy. Pleura: No effusion. Heart: Not enlarged. Thoracic aorta: No aneurysm. Upper abdominal structures: There is a small hiatal hernia. There are calcified granulomas in the liver. There is a stable cyst in the upper pole the left kidney. Visualized osseous structures: There are degenerative changes of the spine without compression deformity. IMPRESSION: New band of density in the right upper lobe on image 23 likely represents either progressive fibro atelectasis or small area of infiltrate. New subpleural 4 mm nodular density posteriorly in the right lower lobe on image 59. Otherwise stable exam. <Electronically signed by Siddhartha Boston > 01/07/21 0948
== END ==
LOC: M PLAIMG 08:51
PROVIDERS: ATTEND Internal Medicine Pulmonary Disease
DX: R91.8 Other nonspecific abnormal finding of lung field (principal)

== ENCOUNTER → 2021-02-06 | Outpatient (REF) | payer OTHER ==
[2021-02-06 13:06] LABS: HEMATOCRIT 41.1 % (36.0-47.0); MEAN CORPUSCULAR HGB CONC 34.1 g/dl (32.0-36.5); MEAN CORPUSCULAR VOLUME 99.8 fl (80.0-96.0); PLATELET COUNT, AUTOMATED 291 10^3/uL (150-450); RED BLOOD COUNT 4.12 10^6/uL (4.00-5.40); WHITE BLOOD COUNT 7.1 10^3/uL (4.0-10.0)
[2021-02-06 13:45] LABS: ALBUMIN 3.4 GM/DL (3.2-5.2); ALT/SGPT 20 U/L (12-78); BILIRUBIN,TOTAL 0.9 MG/DL (0.2-1.0); BLOOD UREA NITROGEN 5 MG/DL (7-18); CALCIUM LEVEL 8.4 MG/DL (8.8-10.2); CARBON DIOXIDE LEVEL 29 MEQ/L (21-32); CHLORIDE LEVEL 102 MEQ/L (98-107); CHOLESTEROL LEVEL 202 MG/DL (<200); CHOLESTEROL RISK RATIO 1.507 (<5); CPK CREATINE PHOSPHOKINASE 70 U/L (26-192); CREATININE FOR GFR 0.56 MG/DL (0.55-1.30); GLOMERULAR FILTRATION RATE > 60.0 (>45); GLUCOSE, FASTING 76 MG/DL (70-100); HDL CHOLESTEROL 134 MG/DL (>40); LDL CHOLESTEROL 60 MG/DL (<100); NON-HDL-C 68 MG/DL; POTASSIUM SERUM 4.4 MEQ/L (3.5-5.1); SODIUM LEVEL 136 MEQ/L (136-145); TRIGLYCERIDES LEVEL 39 MG/DL (<150)
== END ==
LOC: M LABDRWAD 12:44
PROVIDERS: ATTEND Nurse Practitioner Family
DX: I10 Essential (primary) hypertension (principal); E78.5 Hyperlipidemia, unspecified; E05.90 Thyrotoxicosis, unspecified without thyrotoxic crisis or storm

== ENCOUNTER → 2021-05-25 | Outpatient (CLI) | payer OTHER | LOC: M RAD 08:28 | PROVIDERS: ATTEND Internal Medicine Pulmonary Disease | DX: R91.8 Other nonspecific abnormal finding of lung field (principal) ==

== ENCOUNTER → 2021-06-30 | Outpatient (CLI) | payer OTHER ==
[2021-06-30 12:20] LABS: HEMATOCRIT 41.4 % (36.0-47.0); HEMOGLOBIN 14.1 g/dl (12.0-15.5); MEAN CORPUSCULAR HEMOGLOBIN 33.1 pg (27.0-33.0); MEAN CORPUSCULAR HGB CONC 34.1 g/dl (32.0-36.5); MEAN CORPUSCULAR VOLUME 97.2 fl (80.0-96.0); PLATELET COUNT, AUTOMATED 375 10^3/uL (150-450); RED BLOOD COUNT 4.26 10^6/uL (4.00-5.40); WHITE BLOOD COUNT 7.9 10^3/uL (4.0-10.0)
[2021-06-30 13:00] LABS: ALBUMIN 3.1 GM/DL (3.2-5.2); ALT/SGPT 16 U/L (12-78); BILIRUBIN,TOTAL 0.8 MG/DL (0.2-1.0); BLOOD UREA NITROGEN 8 MG/DL (7-18); CALCIUM LEVEL 8.9 MG/DL (8.8-10.2); CARBON DIOXIDE LEVEL 30 MEQ/L (21-32); CHLORIDE LEVEL 102 MEQ/L (98-107); CHOLESTEROL LEVEL 210 MG/DL (<200); CHOLESTEROL RISK RATIO 2.359 (<5); CREATININE FOR GFR 0.55 MG/DL (0.55-1.30); GLOMERULAR FILTRATION RATE > 60.0 (>45); GLUCOSE, FASTING 89 MG/DL (70-100); HDL CHOLESTEROL 89 MG/DL (>40); LDL CHOLESTEROL 103 MG/DL (<100); NON-HDL-C 121 MG/DL; POTASSIUM SERUM 3.7 MEQ/L (3.5-5.1); SODIUM LEVEL 138 MEQ/L (136-145); TOTAL PROTEIN 6.3 GM/DL (6.4-8.2); TRIGLYCERIDES LEVEL 88 MG/DL (<150)
== END ==
LOC: M ADAMS 08:14
PROVIDERS: ATTEND Nurse Practitioner Family
DX: E78.5 Hyperlipidemia, unspecified (principal); E03.9 Hypothyroidism, unspecified; J44.9 Chronic obstructive pulmonary disease, unspecified

== ENCOUNTER → 2021-07-13 | Outpatient (CLI) | payer OTHER | LOC: M PLARAD 10:28 | PROVIDERS: ATTEND Internal Medicine Pulmonary Disease | DX: R91.8 Other nonspecific abnormal finding of lung field (principal) | CPT/HCPCS: 78815; A9552 ==

== ENCOUNTER → 2021-07-22 | Outpatient (REF) | payer OTHER | LOC: M LAB REF 12:05 | PROVIDERS: ATTEND Internal Medicine Pulmonary Disease | DX: R91.8 Other nonspecific abnormal finding of lung field (principal) ==

== ENCOUNTER 2021-08-03 17:17 | Emergency (ER) | payer OTHER ==
[2021-08-03] MEDS ORDERED: FURO20TA2 PO (18:45)
[2021-08-03 19:09] LABS: BASO % 0.2 % (0.0-1.0); EOS % 0.1 % (0.0-3.0); HEMATOCRIT 45.6 % (36.0-47.0); HEMOGLOBIN 15.5 g/dl (12.0-15.5); INR 0.95; LYMPH # 1.7 10^3/uL (1.5-5.0); LYMPH % 10.7 % (24.0-44.0); MEAN CORPUSCULAR HEMOGLOBIN 32.7 pg (27.0-33.0); MEAN CORPUSCULAR VOLUME 96.2 fl (80.0-96.0); MONO # 1.4 10^3/uL (0.0-0.8); MONO % 8.6 % (2.0-8.0); NEUTROPHILS # 12.7 10^3/uL (1.5-8.5); NEUTROPHILS % 79.8 % (36.0-66.0); PLATELET COUNT, AUTOMATED 367 10^3/uL (150-450); PROTHROMBIN TIME 13.1 SECONDS (12.7-14.5); RED BLOOD COUNT 4.74 10^6/uL (4.00-5.40); WHITE BLOOD COUNT 15.9 10^3/uL (4.0-10.0)
[2021-08-03 19:10] LABS: PARTIAL THROMBOPLASTIN TIME 25.8 SECONDS (25.9-37.0)
[2021-08-03] MEDS ORDERED: HEPARIN SOD (PORCINE) 5000UNITS/ML 1ML VIAL/SYRINGE IV ONE (19:10)
[2021-08-03] MEDS ORDERED: HEPARIN DRIP 25,000 UNITS in IV 1 EA IV SCH (19:10)
[2021-08-03 19:12] LABS: RSV AMPLIFICATION NEGATIVE (NEGATIVE)
[2021-08-03 19:19] LABS: ALT/SGPT 25 U/L (12-78); BILIRUBIN,DIRECT 0.3 MG/DL (0.0-0.2); BILIRUBIN,TOTAL 1.1 MG/DL (0.2-1.0); BLOOD UREA NITROGEN 9 MG/DL (7-18); CALCIUM LEVEL 8.2 MG/DL (8.8-10.2); CARBON DIOXIDE LEVEL 22 MEQ/L (21-32); CHLORIDE LEVEL 102 MEQ/L (98-107); CREATININE FOR GFR 0.48 MG/DL (0.55-1.30); ETHYL ALCOHOL (ETHANOL) 0.003 % (0.000-0.010); GLOMERULAR FILTRATION RATE > 60.0 (>45); GLUCOSE, FASTING 139 MG/DL (70-100); LIPASE 28 U/L (73-393); NT-PRO BNP 6794 PG/ML (<125); POTASSIUM SERUM 3.2 MEQ/L (3.5-5.1); SODIUM LEVEL 134 MEQ/L (136-145); TOTAL PROTEIN 6.4 GM/DL (6.4-8.2)
[2021-08-03 19:40] LABS: CK-MB VALUE MASS 7.2 NG/ML (<3.6); MB/CK RELATIVE INDEX 7.74 (< OR =4)
[2021-08-03 20:00] VITALS: BP 107/69
[2021-08-03] MEDS ORDERED: ONDANSETRON 4MG/2ML VIAL IV ONE (20:25)
[2021-08-03] MEDS ORDERED: MORPHINE 4 MG/ML 1ML VIAL/SYRINGE IV ONE (20:25)
== END 2021-08-03 20:34 | disposition short-term general hospital (02) ==
LOC: M ED 17:17
DX: I99.8 Other disorder of circulatory system (principal); R00.0 Tachycardia, unspecified; R91.8 Other nonspecific abnormal finding of lung field; I10 Essential (primary) hypertension; J44.9 Chronic obstructive pulmonary disease, unspecified; E03.9 Hypothyroidism, unspecified; K21.9 Gastro-esophageal reflux disease without esophagitis; F17.200 Nicotine dependence, unspecified, uncomplicated; Z79.899 Other long term (current) drug therapy
CPT/HCPCS: 71045; 80047; 80048; 80076; 82077; 82550; 82553; 83690; 83880; 84443; 84484; 85025; 85610; 85730; 87631; 93005; 93041; 94760; 96374; 96375; 99285; J1644; J2270; J2405

== ENCOUNTER → 2021-09-02 | Outpatient (CLI) | payer OTHER ==
[~2021-09-02] MED LIST changes: +FURO20TA2 PO
[2021-09-02 15:34] LABS: HEMATOCRIT 34.4 % (36.0-47.0); HEMOGLOBIN 10.8 g/dl (12.0-15.5); MEAN CORPUSCULAR HGB CONC 31.4 g/dl (32.0-36.5); MEAN CORPUSCULAR VOLUME 95.6 fl (80.0-96.0); PLATELET COUNT, AUTOMATED 558 10^3/uL (150-450); WHITE BLOOD COUNT 7.9 10^3/uL (4.0-10.0)
[2021-09-02 16:04] LABS: BLOOD UREA NITROGEN 6 MG/DL (7-18); CALCIUM LEVEL 8.3 MG/DL (8.8-10.2); CARBON DIOXIDE LEVEL 29 MEQ/L (21-32); CHLORIDE LEVEL 99 MEQ/L (98-107); CREATININE FOR GFR 0.45 MG/DL (0.55-1.30); GLOMERULAR FILTRATION RATE > 60.0 (>45); GLUCOSE, FASTING 91 MG/DL (70-100); POTASSIUM SERUM 3.5 MEQ/L (3.5-5.1); SODIUM LEVEL 136 MEQ/L (136-145)
== END ==
LOC: M LAB 15:07
PROVIDERS: ATTEND Nurse Practitioner Family
DX: R22.40 Localized swelling, mass and lump, unspecified lower limb (principal); I10 Essential (primary) hypertension

== ENCOUNTER → 2021-09-09 | Outpatient (CLI) | payer OTHER ==
[2021-09-09 13:56] LABS: BLOOD UREA NITROGEN 9 MG/DL (7-18); CALCIUM LEVEL 8.7 MG/DL (8.8-10.2); CARBON DIOXIDE LEVEL 27 MEQ/L (21-32); CHLORIDE LEVEL 101 MEQ/L (98-107); CREATININE FOR GFR 0.38 MG/DL (0.55-1.30); GLOMERULAR FILTRATION RATE > 60.0 (>45); GLUCOSE, FASTING 83 MG/DL (70-100); POTASSIUM SERUM 3.2 MEQ/L (3.5-5.1); SODIUM LEVEL 137 MEQ/L (136-145)
== END ==
LOC: M LAB 12:51
PROVIDERS: ATTEND Nurse Practitioner Family
DX: E87.6 Hypokalemia (principal)

== ENCOUNTER → 2021-09-09 | Outpatient (CLI) | payer OTHER ==
[~2021-09-09] MED LIST changes: +ALBU2.5V10 INH; -ALBU83IN INH
== END ==
LOC: M WHC 08:04
PROVIDERS: ATTEND Nurse Practitioner Family
DX: K80.20 Calculus of gallbladder without cholecystitis without obstruction (principal); E87.6 Hypokalemia

== ENCOUNTER → 2021-10-06 | Outpatient (CLI) | payer OTHER, MEDICAID ==
[2021-10-06 08:14] LABS: HEMATOCRIT 37.2 % (36.0-47.0); HEMOGLOBIN 11.9 g/dl (12.0-15.5); MEAN CORPUSCULAR HEMOGLOBIN 29.2 pg (27.0-33.0); MEAN CORPUSCULAR VOLUME 91.2 fl (80.0-96.0); PLATELET COUNT, AUTOMATED 460 10^3/uL (150-450); RED BLOOD COUNT 4.08 10^6/uL (4.00-5.40)
[2021-10-06 08:45] LABS: BLOOD UREA NITROGEN 10 MG/DL (7-18); CALCIUM LEVEL 9.1 MG/DL (8.8-10.2); CARBON DIOXIDE LEVEL 27 MEQ/L (21-32); CHLORIDE LEVEL 104 MEQ/L (98-107); CREATININE FOR GFR 0.41 MG/DL (0.55-1.30); GLOMERULAR FILTRATION RATE > 60.0 (>45); GLUCOSE, FASTING 100 MG/DL (70-100); POTASSIUM SERUM 3.5 MEQ/L (3.5-5.1); SODIUM LEVEL 140 MEQ/L (136-145)
== END ==
LOC: M LAB 07:52
PROVIDERS: ATTEND Nurse Practitioner Family
DX: E87.6 Hypokalemia (principal); I10 Essential (primary) hypertension; D64.9 Anemia, unspecified

== ENCOUNTER → 2021-10-16 | Outpatient (CLI) | payer OTHER, MEDICAID ==
[~2021-10-16] MED LIST changes: +ALBU8.5H INH; +AMLO1TAB25 PO; +ATOR40TA75 PO; +DILT180C70 PO; +LEVO137T2 PO; +LEVO750T13 PO; +PRED10TA2 PO; +XARE2.5T PO
[2021-10-16 12:38] LABS: PERCENT SATURATION 12.9 % (13.2-45.0)
[2021-10-16 12:57] LABS: FOLATE 5.9 NG/ML (>5.4)
[2021-10-21 05:11] LABS: ANTI THROMBIN 3 ANTIGEN IMMUNO 98 % (72-124); ANTI THROMBIN 3 FUNCT ACTIVITY 127 % (75-135); BETA-2 GLYCOPROTEIN I ABY IGA <9 (0-25); BETA-2 GLYCOPROTEIN I ABY IGG <9 (0-20); BETA-2 GLYCOPROTEIN I ABY IGM <9 (0-32); CARDIOLIPIN IGA ANTIBODY <9 APL U/mL (0-11); CARDIOLIPIN IGG ANTIBODY <9 GPL U/mL (0-14); CARDIOLIPIN IGM ANTIBODY <9 MPL U/mL (0-12); HOMOCYST(E)INE SERUM 18.1 umol/L (0.0-17.2); PROTEIN C ANTIGEN 122 % (60-150); PROTEIN C FUNCTIONAL ACTIVITY 164 % (73-180); PROTEIN S ANTIGEN FREE 123 % (61-136); PROTEIN S ANTIGEN TOTAL 110 % (60-150); PROTEIN S FUNCTIONAL ACTIVITY 131 % (63-140)
== END ==
LOC: M LAB 10:44
PROVIDERS: ATTEND Internal Medicine
DX: I74.2 Embolism and thrombosis of arteries of the upper extremities (principal)

== ENCOUNTER 2022-01-10 15:48 | Inpatient (IN) | payer OTHER, MEDICAID ==
[~2022-01-10] VITALS: Ht 160 cm; Wt 61.0 kg
[~2022-01-10 15:48] MED LIST changes: +LEVO1TAB40 PO; -LEVO750T13 PO
[2022-01-10 16:58] LABS: BASO # 0.1 10^3/uL (0.0-0.2); BASO % 0.4 % (0.0-1.0); EOS # 0.1 10^3/uL (0.0-0.5); EOS % 0.8 % (0.0-3.0); HEMATOCRIT 41.7 % (36.0-47.0); HEMOGLOBIN 13.5 g/dl (12.0-15.5); LYMPH # 1.3 10^3/uL (1.5-5.0); LYMPH % 9.7 % (24.0-44.0); MEAN CORPUSCULAR HEMOGLOBIN 27.7 pg (27.0-33.0); MEAN CORPUSCULAR HGB CONC 32.4 g/dl (32.0-36.5); MEAN CORPUSCULAR VOLUME 85.5 fl (80.0-96.0); MONO # 1.2 10^3/uL (0.0-0.8); MONO % 8.9 % (2.0-8.0); NEUTROPHILS # 10.7 10^3/uL (1.5-8.5); NEUTROPHILS % 79.6 % (36.0-66.0); PLATELET COUNT, AUTOMATED 463 10^3/uL (150-450); RED BLOOD COUNT 4.88 10^6/uL (4.00-5.40); WHITE BLOOD COUNT 13.4 10^3/uL (4.0-10.0)
[2022-01-10] MEDS ORDERED: POTASSIUM CHLORIDE 10MEQ SR TABLET PO ONE (17:00)
[2022-01-10] MEDS ORDERED: ACETAMINOPHEN TAB 650MG DOSE (2X325MG) PO ONE (17:05)
[2022-01-10] MEDS ORDERED: ISOVUE-370 76% 100ML VIAL As Ordered ONE (17:33)
[2022-01-10 17:34] LABS: ALBUMIN 3.3 GM/DL (3.2-5.2); BILIRUBIN,DIRECT 0.2 MG/DL (0.0-0.2); BILIRUBIN,TOTAL 0.8 MG/DL (0.2-1.0); TOTAL PROTEIN 7.1 GM/DL (6.4-8.2)
[2022-01-10 17:52] LABS: CK-MB VALUE MASS < 1.0 NG/ML (<3.6); CPK CREATINE PHOSPHOKINASE 53 U/L (26-192); MB/CK RELATIVE INDEX 1.89 (< OR =4)
[2022-01-10] MEDS ORDERED: PIPERACILLIN/TAZOBACTAM SOD 4.5 GM in D5W MINI-BAG PLUS 50 ML IV ONE (18:10)
[2022-01-10 19:05] LABS: CK-MB VALUE MASS < 1.0 NG/ML (<3.6); CPK CREATINE PHOSPHOKINASE 36 U/L (26-192); MB/CK RELATIVE INDEX 2.78 (< OR =4)
[2022-01-10] MEDS ORDERED: FURO20TA2 PO (19:46)
[2022-01-10] MEDS ORDERED: POTA-150 PO (19:46)
[2022-01-10] MEDS ORDERED: ASPI81TA26 PO (19:46)
[2022-01-10] MEDS ORDERED: HOME MED LIST COMPLETE! XX SCH (19:50)
[2022-01-10] MEDS ORDERED: NS 1,000 ML IV ONE (19:50)
[2022-01-10] MEDS ORDERED: RIVAROXABAN 10MG TAB (XARELTO) PO SCH (21:00)
[2022-01-10] MEDS ORDERED: SODIUM CHLORIDE 0.9% 1000ML IV SCH (21:50)
[2022-01-10] MEDS ORDERED: NS 1,000 ML IV SCH (21:50)
[2022-01-10] MEDS ORDERED: ALBUTEROL SULFATE 2.5 MG/0.5 ML INH NEB SOLN INH PRN (22:10)
[2022-01-10] MEDS ORDERED: PILL CUTTER 1 EACH XX PRN (22:30)
[2022-01-10] MEDS: IPRATROPIUM 0.5MG/ALBUTEROL 2.5MG INH SOL UD 3ML (DUONEB) NEB SCH (23:05)
[2022-01-10] MEDS: ADVAIR HFA 230/21MCG INHALER INH SCH (23:05)
[2022-01-10] MEDS: predniSONE 10 MG TAB PO SCH (23:49)
[2022-01-11] MEDS: IPRATROPIUM 0.5MG/ALBUTEROL 2.5MG INH SOL UD 3ML (DUONEB) NEB SCH ×5 (01:17→20:00)
[2022-01-11] MEDS ORDERED: PIPERACILLIN/TAZOBACTAM SOD 4.5 GM in D5W MINI-BAG PLUS 50 ML IV SCH (02:00)
[2022-01-11] MEDS ORDERED: LevoFLOXacin IV 750 MG in IV 1 EA IV SCH (02:15)
[2022-01-11] MEDS: LevoFLOXacin IV 750 MG in IV 1 EA IV SCH (03:00)
[2022-01-11] MEDS: LEVOTHYROXINE 137MCG TABLET (0.137MG) PO SCH (06:00)
[2022-01-11 06:54] LABS: BLOOD UREA NITROGEN 10 MG/DL (7-18); CREATININE FOR GFR 0.47 MG/DL (0.55-1.30); GLUCOSE, FASTING 110 MG/DL (70-100)
[2022-01-11 06:55] LABS: ALBUMIN 2.5 GM/DL (3.2-5.2); ALT/SGPT 11 U/L (12-78); CALCIUM LEVEL 7.7 MG/DL (8.8-10.2); CARBON DIOXIDE LEVEL 24 MEQ/L (21-32); CHLORIDE LEVEL 104 MEQ/L (98-107); GLOMERULAR FILTRATION RATE > 60.0 (>45); POTASSIUM SERUM 3.8 MEQ/L (3.5-5.1); SODIUM LEVEL 135 MEQ/L (136-145); TOTAL PROTEIN 5.5 GM/DL (6.4-8.2)
[2022-01-11 07:35] LABS: BASO % 0.3 % (0.0-1.0); EOS % 0.3 % (0.0-3.0); HEMATOCRIT 38.4 % (36.0-47.0); HEMOGLOBIN 12.3 g/dl (12.0-15.5); LYMPH # 0.6 10^3/uL (1.5-5.0); LYMPH % 5.2 % (24.0-44.0); MEAN CORPUSCULAR HEMOGLOBIN 27.6 pg (27.0-33.0); MEAN CORPUSCULAR VOLUME 86.3 fl (80.0-96.0); MONO # 0.4 10^3/uL (0.0-0.8); MONO % 3.5 % (2.0-8.0); NEUTROPHILS # 10.7 10^3/uL (1.5-8.5); NEUTROPHILS % 90.1 % (36.0-66.0); PLATELET COUNT, AUTOMATED 425 10^3/uL (150-450); RED BLOOD COUNT 4.45 10^6/uL (4.00-5.40); WHITE BLOOD COUNT 11.9 10^3/uL (4.0-10.0)
[2022-01-11 07:43] LABS: C REACTIVE PROTEIN QUANTITATIV 3.02 MG/DL (0.00-0.30)
[2022-01-11 07:44] LABS: C REACTIVE PROTEIN QUANTITATIV 9.52 MG/DL (0.00-0.30); MAGNESIUM LEVEL 1.8 MG/DL (1.8-2.4)
[2022-01-11 08:00] VITALS: BP 124/63
[2022-01-11] MEDS: ADVAIR HFA 230/21MCG INHALER INH SCH ×2 (08:33→20:23)
[2022-01-11] MEDS ORDERED: ENOXAPARIN 100MG/1ML SYRINGE (J1650 PER 10MG) SC SCH (09:00)
[2022-01-11] MEDS: NS 1,000 ML IV SCH ×2 (09:53→21:14)
[2022-01-11] MEDS: ENOXAPARIN 100MG/1ML SYRINGE (J1650 PER 10MG) SC SCH (09:54)
[2022-01-11] MEDS: guaiFENesin ER 600 MG TAB PO SCH ×2 (09:54→20:04)
[2022-01-11] MEDS: ASPIRIN 81MG ENTERIC TABLET PO SCH (09:55)
[2022-01-11 12:00] VITALS: BP 150/70
[2022-01-11] MEDS ORDERED: ONDANSETRON 4MG 2ML VIAL IV PRN (13:10)
[2022-01-11] MEDS: ACETAMINOPHEN TAB 650MG DOSE (2X325MG) PO PRN (16:08)
[2022-01-11 16:10] VITALS: BP 130/61
[2022-01-11 16:57] VITALS: BP 123/58
[2022-01-11 20:00] VITALS: BP 117/55
[2022-01-11] MEDS: predniSONE 10 MG TAB PO SCH (20:04)
[2022-01-11] MEDS: ATORVASTATIN 20 MG TAB PO SCH (20:04)
[2022-01-11] MEDS ORDERED: diphenhydrAMINE 25MG CAP PO ONE (20:50)
[2022-01-12] VITALS (7 sets, daily range): BP systolic 98–121; BP diastolic 52–58
[2022-01-12] MEDS: LevoFLOXacin IV 750 MG in IV 1 EA IV SCH (03:18)
[2022-01-12] MEDS: LEVOTHYROXINE 137MCG TABLET (0.137MG) PO SCH (05:59)
[2022-01-12 06:37] LABS: BASO % 0.1 % (0.0-1.0); HEMATOCRIT 32.5 % (36.0-47.0); HEMOGLOBIN 10.7 g/dl (12.0-15.5); LYMPH # 0.8 10^3/uL (1.5-5.0); LYMPH % 9.1 % (24.0-44.0); MEAN CORPUSCULAR HEMOGLOBIN 28.2 pg (27.0-33.0); MEAN CORPUSCULAR HGB CONC 32.9 g/dl (32.0-36.5); MEAN CORPUSCULAR VOLUME 85.5 fl (80.0-96.0); MONO # 0.9 10^3/uL (0.0-0.8); MONO % 9.8 % (2.0-8.0); NEUTROPHILS % 80.5 % (36.0-66.0); PLATELET COUNT, AUTOMATED 354 10^3/uL (150-450); WHITE BLOOD COUNT 8.7 10^3/uL (4.0-10.0)
[2022-01-12 07:23] LABS: BLOOD UREA NITROGEN 8 MG/DL (7-18); CARBON DIOXIDE LEVEL 25 MEQ/L (21-32); CHLORIDE LEVEL 104 MEQ/L (98-107); CREATININE FOR GFR 0.43 MG/DL (0.55-1.30); GLOMERULAR FILTRATION RATE > 60.0 (>45); GLUCOSE, FASTING 101 MG/DL (70-100); MAGNESIUM LEVEL 1.9 MG/DL (1.8-2.4); POTASSIUM SERUM 3.6 MEQ/L (3.5-5.1); SODIUM LEVEL 138 MEQ/L (136-145)
[2022-01-12] MEDS: IPRATROPIUM 0.5MG/ALBUTEROL 2.5MG INH SOL UD 3ML (DUONEB) NEB SCH ×3 (08:00→19:20)
[2022-01-12] MEDS: ASPIRIN 81MG ENTERIC TABLET PO SCH (08:09)
[2022-01-12] MEDS: guaiFENesin ER 600 MG TAB PO SCH ×2 (08:09→19:56)
[2022-01-12] MEDS: ADVAIR HFA 230/21MCG INHALER INH SCH ×2 (08:24→19:19)
[2022-01-12] MEDS ORDERED: diphenhydrAMINE 25MG CAP PO PRN (10:25)
[2022-01-12] MEDS ORDERED: cefTRIAXone SOD 1 GM in D5W MINI-BAG PLUS 50 ML IV SCH (11:00)
[2022-01-12] MEDS ORDERED: metroNIDAZOLE (FLAGYL) 500MG TABLET PO ONE (12:00)
[2022-01-12] MEDS: predniSONE 10 MG TAB PO SCH (19:55)
[2022-01-12] MEDS: ATORVASTATIN 20 MG TAB PO SCH (19:55)
[2022-01-12] MEDS: metroNIDAZOLE (FLAGYL) 500MG TABLET PO SCH (19:56)
[2022-01-12] MEDS: ACETAMINOPHEN TAB 650MG DOSE (2X325MG) PO PRN (21:11)
[2022-01-12] MEDS: ENOXAPARIN 100MG/1ML SYRINGE (J1650 PER 10MG) SC SCH (21:29)
[2022-01-13] VITALS (8 sets, daily range): BP systolic 119–127; BP diastolic 55–65
[2022-01-13] MEDS: IPRATROPIUM 0.5MG/ALBUTEROL 2.5MG INH SOL UD 3ML (DUONEB) NEB SCH ×3 (01:39→14:01)
[2022-01-13 06:40] LABS: BASO % 0.2 % (0.0-1.0); HEMATOCRIT 33.2 % (36.0-47.0); HEMOGLOBIN 10.9 g/dl (12.0-15.5); LYMPH # 0.7 10^3/uL (1.5-5.0); LYMPH % 8.1 % (24.0-44.0); MEAN CORPUSCULAR HEMOGLOBIN 28.2 pg (27.0-33.0); MEAN CORPUSCULAR HGB CONC 32.8 g/dl (32.0-36.5); MEAN CORPUSCULAR VOLUME 85.8 fl (80.0-96.0); MONO # 0.7 10^3/uL (0.0-0.8); MONO % 8.1 % (2.0-8.0); NEUTROPHILS # 6.7 10^3/uL (1.5-8.5); NEUTROPHILS % 83.2 % (36.0-66.0); PLATELET COUNT, AUTOMATED 356 10^3/uL (150-450); RED BLOOD COUNT 3.87 10^6/uL (4.00-5.40); WHITE BLOOD COUNT 8.1 10^3/uL (4.0-10.0)
[2022-01-13 06:54] LABS: BLOOD UREA NITROGEN 8 MG/DL (7-18); CALCIUM LEVEL 7.9 MG/DL (8.8-10.2); CARBON DIOXIDE LEVEL 27 MEQ/L (21-32); CHLORIDE LEVEL 104 MEQ/L (98-107); CREATININE FOR GFR 0.38 MG/DL (0.55-1.30); GLOMERULAR FILTRATION RATE > 60.0 (>45); GLUCOSE, FASTING 105 MG/DL (70-100); MAGNESIUM LEVEL 2.1 MG/DL (1.8-2.4); POTASSIUM SERUM 3.5 MEQ/L (3.5-5.1); SODIUM LEVEL 137 MEQ/L (136-145)
[2022-01-13] MEDS: ADVAIR HFA 230/21MCG INHALER INH SCH (07:15)
[2022-01-13] MEDS: guaiFENesin ER 600 MG TAB PO SCH (08:17)
[2022-01-13] MEDS: ASPIRIN 81MG ENTERIC TABLET PO SCH (08:17)
[2022-01-13] MEDS: metroNIDAZOLE (FLAGYL) 500MG TABLET PO SCH ×2 (08:29→12:53)
[2022-01-13] MEDS: LEVOTHYROXINE 137MCG TABLET (0.137MG) PO SCH (08:30)
[2022-01-13] MEDS ORDERED: CEFEPIME HCL 2 GM in D5W MINI-BAG PLUS 50 ML IV SCH (11:00)
[2022-01-13] MEDS ORDERED: LIDOCAINE 1% MDV 20ML VIAL As Ordered ONE (11:57)
[2022-01-13 14:08] LABS: BODY FLUID CULTURE Not indicated. (.); LEGIONELLA ANTIGEN URINE Negative (Negative); ORGANISM ID Not indicated. (.); SPECIMEN SOURCE Urine (.); URINE STREP PNEUMONIAE ANTIGEN Negative (Negative)
[2022-01-13] MEDS ORDERED: LEVO1TAB40 PO (16:41)
[2022-01-13] MEDS ORDERED: METR-265 PO (16:41)
== END 2022-01-13 18:46 | disposition home or self-care (01) | DRG 871 ==
LOC: M ED 15:48 → M ED INP 21:50 → ENRESERV 01-11 15:40 → M PCU 01-11 16:48
PROVIDERS: ADMIT Internal Medicine; ATTEND Internal Medicine
PROC: 0BBG3ZX Excision of Left Upper Lung Lobe, Percutaneous Approach, Diagnostic (ICD-10-PCS; principal; 2022-01-13 12:00)
DX: A41.9 Sepsis, unspecified organism (principal); J96.01 Acute respiratory failure with hypoxia; J15.5 Pneumonia due to Escherichia coli; J85.0 Gangrene and necrosis of lung; J44.0 Chronic obstructive pulmonary disease with (acute) lower respiratory infection; E03.9 Hypothyroidism, unspecified; I10 Essential (primary) hypertension; E78.5 Hyperlipidemia, unspecified; F17.210 Nicotine dependence, cigarettes, uncomplicated; I95.9 Hypotension, unspecified; R65.20 Severe sepsis without septic shock; Z79.01 Long term (current) use of anticoagulants; Z88.8 Allergy status to other drugs, medicaments and biological substances; Z79.82 Long term (current) use of aspirin; Z79.899 Other long term (current) drug therapy; L29.8 Other pruritus; T36.0X5A Adverse effect of penicillins, initial encounter; Z95.2 Presence of prosthetic heart valve; Z79.52 Long term (current) use of systemic steroids

== ENCOUNTER → 2022-02-08 | Outpatient (CLI) | payer OTHER, MEDICAID ==
[~2022-02-08] MED LIST changes: +ASPI81TA26 PO; +METR-265 PO; +POTA-150 PO
[2022-02-08 08:43] LABS: HEMATOCRIT 41.4 % (36.0-47.0); HEMOGLOBIN 12.9 g/dl (12.0-15.5); MEAN CORPUSCULAR HEMOGLOBIN 28.2 pg (27.0-33.0); MEAN CORPUSCULAR HGB CONC 31.2 g/dl (32.0-36.5); MEAN CORPUSCULAR VOLUME 90.6 fl (80.0-96.0); PLATELET COUNT, AUTOMATED 321 10^3/uL (150-450); RED BLOOD COUNT 4.57 10^6/uL (4.00-5.40); WHITE BLOOD COUNT 7.3 10^3/uL (4.0-10.0)
[2022-02-08 09:36] LABS: ALBUMIN 3.2 GM/DL (3.2-5.2); ALT/SGPT 19 U/L (12-78); BILIRUBIN,TOTAL 0.6 MG/DL (0.2-1.0); BLOOD UREA NITROGEN 10 MG/DL (7-18); CALCIUM LEVEL 8.8 MG/DL (8.8-10.2); CARBON DIOXIDE LEVEL 27 MEQ/L (21-32); CHLORIDE LEVEL 107 MEQ/L (98-107); CHOLESTEROL LEVEL 167 MG/DL (<200); CHOLESTEROL RISK RATIO 2.036 (<5); GLOMERULAR FILTRATION RATE > 60.0 (>45); GLUCOSE, FASTING 77 MG/DL (70-100); HDL CHOLESTEROL 82 MG/DL (>40); LDL CHOLESTEROL 73 MG/DL (<100); NON-HDL-C 85 MG/DL; POTASSIUM SERUM 3.9 MEQ/L (3.5-5.1); SODIUM LEVEL 139 MEQ/L (136-145); THYROID STIMULATING HORMONE 0.581 uIU/ML (0.358-3.740); TOTAL PROTEIN 6.6 GM/DL (6.4-8.2); TRIGLYCERIDES LEVEL 60 MG/DL (<150)
== END ==
LOC: M LAB 08:10
PROVIDERS: ATTEND Nurse Practitioner Family
DX: I10 Essential (primary) hypertension (principal); E78.5 Hyperlipidemia, unspecified; E03.9 Hypothyroidism, unspecified

== ENCOUNTER → 2022-02-15 | Outpatient (CLI) | payer OTHER, MEDICAID | LOC: M WUC 08:52 | PROVIDERS: ATTEND Nurse Practitioner Family | DX: E55.9 Vitamin D deficiency, unspecified (principal); M43.16 Spondylolisthesis, lumbar region; Z79.899 Other long term (current) drug therapy ==

== ENCOUNTER → 2022-03-08 | Outpatient (CLI) | payer OTHER, MEDICAID | LOC: M WHC 07:35 | PROVIDERS: ATTEND Nurse Practitioner Family | DX: Z12.31 Encounter for screening mammogram for malignant neoplasm of breast (principal); Z13.820 Encounter for screening for osteoporosis; M85.88 Other specified disorders of bone density and structure, other site; M85.851 Other specified disorders of bone density and structure, right thigh; M81.0 Age-related osteoporosis without current pathological fracture ==

== ENCOUNTER → 2022-03-25 | Outpatient (CLI) | payer OTHER, MEDICAID | LOC: M PLAIMG 11:07 | PROVIDERS: ATTEND Internal Medicine Pulmonary Disease | DX: R91.8 Other nonspecific abnormal finding of lung field (principal) ==

== ENCOUNTER → 2022-04-22 | Outpatient (CLI) | payer OTHER, MEDICAID | LOC: M RAD 12:08 | PROVIDERS: ATTEND Physician Assistant | DX: Z48.812 Encounter for surgical aftercare following surgery on the circulatory system (principal); Z98.890 Other specified postprocedural states ==

== ENCOUNTER → 2022-05-11 | Outpatient (CLI) | payer OTHER, MEDICAID ==
[2022-05-11 07:22] LABS: HEMOGLOBIN 13.6 g/dl (12.0-15.5); MEAN CORPUSCULAR HGB CONC 31.6 g/dl (32.0-36.5); MEAN CORPUSCULAR VOLUME 91.7 fl (80.0-96.0); PLATELET COUNT, AUTOMATED 351 10^3/uL (150-450); RED BLOOD COUNT 4.69 10^6/uL (4.00-5.40); WHITE BLOOD COUNT 7.1 10^3/uL (4.0-10.0)
[2022-05-11 07:56] LABS: CPK CREATINE PHOSPHOKINASE 74 U/L (34-145)
[2022-05-11 07:57] LABS: ALBUMIN 3.2 G/DL (3.2-5.2); ALKALINE PHOSPHATASE 120 U/L (46-116); ALT/SGPT 11 U/L (7.0-40); AST/SGOT 13 U/L (<34); BILIRUBIN,TOTAL 0.6 MG/DL (0.3-1.2); BLOOD UREA NITROGEN 19 MG/DL (9-23); CALCIUM LEVEL 8.5 MG/DL (8.3-10.6); CARBON DIOXIDE LEVEL 28 MMOL/L (20-31); CHLORIDE LEVEL 107 MMOL/L (98-107); CHOLESTEROL LEVEL 153 MG/DL (<200); CHOLESTEROL RISK RATIO 2.26 (<5); CREATININE FOR GFR 0.57 MG/DL (0.55-1.30); GLOMERULAR FILTRATION RATE > 60.0 (>45); GLUCOSE, FASTING 115 MG/DL (74-106); HDL CHOLESTEROL 67.5 MG/DL (>40); LDL CHOLESTEROL 75.5 MG/DL (<100); NON-HDL-C 86 MG/DL; POTASSIUM SERUM 4.2 MMOL/L (3.5-5.1); SODIUM LEVEL 142 MMOL/L (136-145); TOTAL PROTEIN 6.6 G/DL (5.7-8.2); TRIGLYCERIDES LEVEL 50 MG/DL (<150)
[2022-05-11 07:58] LABS: FREE T4 1.54 NG/DL (0.89-1.76)
[2022-05-11 07:59] LABS: TOTAL 25(OH) VITAMIN D 63.3 NG/ML (20.0-100.0)
== END ==
LOC: M LAB 06:42
PROVIDERS: ATTEND Nurse Practitioner Family
DX: E03.9 Hypothyroidism, unspecified (principal); E78.5 Hyperlipidemia, unspecified; I10 Essential (primary) hypertension; E55.9 Vitamin D deficiency, unspecified; Z79.890 Hormone replacement therapy

== ENCOUNTER → 2022-06-14 | Outpatient (CLI) | payer OTHER, MEDICAID ==
[~2022-06-14] MED LIST changes: -ALBU2TA PO; +ALBU2TAB13 PO
== END ==
LOC: M RAD 12:45
PROVIDERS: ATTEND Nurse Practitioner Family
DX: Z96.89 Presence of other specified functional implants (principal)

== ENCOUNTER → 2022-07-26 | Outpatient (CLI) | payer OTHER, MEDICAID | LOC: M RAD 09:58 | PROVIDERS: ATTEND Internal Medicine Pulmonary Disease | DX: R91.8 Other nonspecific abnormal finding of lung field (principal) ==

== ENCOUNTER → 2022-09-08 | Outpatient (CLI) | payer OTHER, MEDICAID ==
[2022-09-08 07:04] LABS: HEMATOCRIT 41.4 % (36.0-47.0); HEMOGLOBIN 13.6 g/dl (12.0-15.5); MEAN CORPUSCULAR HGB CONC 32.9 g/dl (32.0-36.5); MEAN CORPUSCULAR VOLUME 91.2 fl (80.0-96.0); PLATELET COUNT, AUTOMATED 306 10^3/uL (150-450); RED BLOOD COUNT 4.54 10^6/uL (4.00-5.40); WHITE BLOOD COUNT 7.4 10^3/uL (4.0-10.0)
[2022-09-08 07:27] LABS: ALBUMIN 3.4 G/DL (3.2-5.2); ALKALINE PHOSPHATASE 113 U/L (46-116); ALT/SGPT 16 U/L (7.0-40); AST/SGOT 22 U/L (<34); BILIRUBIN,TOTAL 0.5 MG/DL (0.3-1.2); BLOOD UREA NITROGEN 18 MG/DL (9-23); CALCIUM LEVEL 8.4 MG/DL (8.3-10.6); CARBON DIOXIDE LEVEL 26 MMOL/L (20-31); CHLORIDE LEVEL 108 MMOL/L (98-107); CHOLESTEROL LEVEL 167 MG/DL (<200); CHOLESTEROL RISK RATIO 2.31 (<5); GLOMERULAR FILTRATION RATE > 60.0 (>45); GLUCOSE, FASTING 114 MG/DL (74-106); HDL CHOLESTEROL 72.1 MG/DL (>40); LDL CHOLESTEROL 83.3 MG/DL (<100); NON-HDL-C 94.9 MG/DL; POTASSIUM SERUM 4.7 MMOL/L (3.5-5.1); SODIUM LEVEL 139 MMOL/L (136-145); TOTAL PROTEIN 6.4 G/DL (5.7-8.2); TRIGLYCERIDES LEVEL 58 MG/DL (<150)
[2022-09-08 07:28] LABS: FREE T4 1.42 NG/DL (0.89-1.76)
[2022-09-08 07:29] LABS: THYROID STIMULATING HORMONE 0.457 uIU/ML (0.55-4.78); TOTAL 25(OH) VITAMIN D 47.4 NG/ML (20.0-100.0)
[2022-09-08 07:32] LABS: CPK CREATINE PHOSPHOKINASE 88 U/L (34-145)
== END ==
LOC: M LAB 06:25
PROVIDERS: ATTEND Nurse Practitioner Family
DX: I10 Essential (primary) hypertension (principal); E55.9 Vitamin D deficiency, unspecified; E78.5 Hyperlipidemia, unspecified; E03.9 Hypothyroidism, unspecified; Z79.899 Other long term (current) drug therapy

== ENCOUNTER → 2022-10-15 | Outpatient (CLI) | payer OTHER, MEDICAID ==
[~2022-10-15] MED LIST changes: +GASTROGRAFIN SOLUTION 30ML As Ordered ONE; +ISOVUE-370 76% 100ML VIAL As Ordered ONE
== END ==
LOC: M RAD 09:52
PROVIDERS: ATTEND Nurse Practitioner Family
DX: R19.4 Change in bowel habit (principal); R14.0 Abdominal distension (gaseous)
CPT/HCPCS: 74177; Q9963; Q9967

== ENCOUNTER → 2022-11-01 | Outpatient (CLI) | payer OTHER, MEDICAID ==
[~2022-11-01] MED LIST changes: -GASTROGRAFIN SOLUTION 30ML As Ordered ONE; -ISOVUE-370 76% 100ML VIAL As Ordered ONE
== END ==
LOC: M RAD 11:37
PROVIDERS: ATTEND Physician Assistant
DX: I70.308 Unspecified atherosclerosis of unspecified type of bypass graft(s) of the extremities, other extremity (principal); Z48.812 Encounter for surgical aftercare following surgery on the circulatory system

== ENCOUNTER 2022-11-30 20:03 | Emergency (ER) | payer OTHER, MEDICAID ==
[~2022-11-30] VITALS: Ht 160 cm; Wt 68.2 kg
[2022-11-30 20:04] VITALS: BP 136/63; TEMP 97.7; O2SAT 94
== END 2022-11-30 21:54 | disposition left against medical advice (07) ==
LOC: M ED 20:03
DX: Z53.21 Procedure and treatment not carried out due to patient leaving prior to being seen by health care provider (principal)

== ENCOUNTER → 2023-02-18 | Outpatient (CLI) | payer OTHER, MEDICAID ==
[~2023-02-18] MED LIST changes: +LEVO1TAB40; +MECL-209 PO; -MECL1TAB31 PO; +NITR0.2D5; +RANO500T2
== END ==
LOC: M PLAIMG 08:00
PROVIDERS: ATTEND Internal Medicine Pulmonary Disease
DX: R91.8 Other nonspecific abnormal finding of lung field (principal)

== ENCOUNTER → 2023-03-03 | Outpatient (CLI) | payer OTHER, MEDICAID | LOC: M RAD 07:43 | PROVIDERS: ATTEND Nurse Practitioner Family | DX: M47.816 Spondylosis without myelopathy or radiculopathy, lumbar region (principal); M54.31 Sciatica, right side; M54.50 Low back pain, unspecified ==

== ENCOUNTER → 2023-03-09 | Outpatient (CLI) | payer OTHER, MEDICAID | LOC: M WHC 08:03 | PROVIDERS: ATTEND Nurse Practitioner Family | DX: Z12.31 Encounter for screening mammogram for malignant neoplasm of breast (principal) ==

== ENCOUNTER 2023-03-31 14:25 | Day surgery (SDC) | payer OTHER, MEDICAID ==
[~2023-03-31] VITALS: Ht 160 cm; Wt 68.8 kg
[~2023-03-31 14:25] MED LIST changes: +ALEN70TA82 PO; +ERGO500029 PO; +IPRA0.00 INH; +NS 1,000 ML IV ONE; +OMEP40CA5 PO; +VALS1TAB66 PO
[2023-03-31] MEDS ORDERED: LR 1,000 ML IV SCH (14:55)
[2023-03-31] MEDS ORDERED: ISOVUE-300 61% 100ML VIAL As Ordered ONE (16:04)
[2023-03-31] MEDS ORDERED: fentaNYL 100 MCG/2 ML INJECTION As Ordered ONE (16:28)
[2023-03-31] MEDS ORDERED: MIDAZOLAM INJ 2MG/2ML VIAL As Ordered ONE (16:28)
[2023-03-31] MEDS ORDERED: ONDANSETRON 4MG 2ML VIAL As Ordered ONE (16:28)
[2023-03-31] MEDS ORDERED: LIDOCAINE 2% 100MG/5ML SDV (FOR ANES.) As Ordered ONE (16:28)
[2023-03-31] MEDS ORDERED: SUGAMMADEX SODIUM 500 MG/5 ML VIAL (BRIDION) As Ordered ONE (16:28)
[2023-03-31] MEDS ORDERED: propofoL 200 MG/20 ML VIAL As Ordered ONE (16:28)
[2023-03-31] MEDS ORDERED: ROCURONIUM BROMIDE 50MG/5ML VIAL As Ordered ONE (16:28)
[2023-03-31] MEDS ORDERED: PHENYLephrine 500MCG 5ML (100MCG/ML) SYRINGE As Ordered ONE (16:33)
[2023-03-31] MEDS ORDERED: VASOPRESSIN INJ 20UNITS/ML 1ML VIAL As Ordered ONE (16:46)
[2023-03-31] MEDS ORDERED: oxyCODONE 5MG TAB PO PRN (17:05)
[2023-03-31] MEDS ORDERED: ONDANSETRON 4MG 2ML VIAL IV PRN (17:05)
[2023-03-31] MEDS ORDERED: MORPHINE 2 MG/ML 1ML VIAL IV PRN (17:05)
[2023-03-31] MEDS ORDERED: fentaNYL 100 MCG/2 ML INJECTION IV PRN (17:05)
[2023-03-31 18:07] VITALS: BP 136/70; TEMP 98.8; O2SAT 95
== END 2023-03-31 18:14 | disposition home or self-care (01) ==
LOC: M SDC 14:25
PROVIDERS: ATTEND Internal Medicine Gastroenterology
DX: T85.520A Displacement of bile duct prosthesis, initial encounter (principal); K80.50 Calculus of bile duct without cholangitis or cholecystitis without obstruction; K83.8 Other specified diseases of biliary tract; Y82.8 Other medical devices associated with adverse incidents; Y92.9 Unspecified place or not applicable; I10 Essential (primary) hypertension; E78.00 Pure hypercholesterolemia, unspecified; E03.9 Hypothyroidism, unspecified; J44.9 Chronic obstructive pulmonary disease, unspecified; F17.210 Nicotine dependence, cigarettes, uncomplicated; Z79.899 Other long term (current) drug therapy; Z79.82 Long term (current) use of aspirin; Z79.890 Hormone replacement therapy; Z79.01 Long term (current) use of anticoagulants; Z79.52 Long term (current) use of systemic steroids; Z90.49 Acquired absence of other specified parts of digestive tract; Z88.0 Allergy status to penicillin; Z88.8 Allergy status to other drugs, medicaments and biological substances
CPT/HCPCS: 43261; 43264; 43275; 74328; 76000; 88305; C1769; C1889; J1100; J2250; J2371; J2405; J2598; J3010; Q9967

== ENCOUNTER → 2023-04-19 | Outpatient (CLI) | payer MEDICAID, OTHER ==
[~2023-04-19] MED LIST changes: -NS 1,000 ML IV ONE
[2023-04-19 08:24] LABS: BASO % 0.4 % (0.0-1.0); EOS % 0.4 % (0.0-3.0); HEMATOCRIT 41.3 % (36.0-47.0); LYMPH # 1.2 10^3/uL (1.5-5.0); LYMPH % 14.6 % (24.0-44.0); MEAN CORPUSCULAR HEMOGLOBIN 29.3 pg (27.0-33.0); MEAN CORPUSCULAR HGB CONC 31.5 g/dl (32.0-36.5); MONO # 0.6 10^3/uL (0.0-0.8); NEUTROPHILS # 6.1 10^3/uL (1.5-8.5); NEUTROPHILS % 77.1 % (36.0-66.0); PLATELET COUNT, AUTOMATED 297 10^3/uL (150-450); RED BLOOD COUNT 4.44 10^6/uL (4.00-5.40); WHITE BLOOD COUNT 7.9 10^3/uL (4.0-10.0)
[2023-04-19 08:45] LABS: ALBUMIN 3.3 G/DL (3.2-5.2); ALKALINE PHOSPHATASE 101 U/L (46-116); ALT/SGPT 12 U/L (7.0-40); AST/SGOT 12 U/L (<34); BILIRUBIN,TOTAL 0.7 MG/DL (0.3-1.2); BLOOD UREA NITROGEN 18 MG/DL (9-23); CALCIUM LEVEL 8.2 MG/DL (8.3-10.6); CARBON DIOXIDE LEVEL 27 MMOL/L (20-31); CHLORIDE LEVEL 110 MMOL/L (98-107); CHOLESTEROL LEVEL 157 MG/DL (<200); CHOLESTEROL RISK RATIO 2.26 (<5); CPK CREATINE PHOSPHOKINASE 85 U/L (34-145); CREATININE FOR GFR 0.59 MG/DL (0.55-1.30); GLOMERULAR FILTRATION RATE > 60.0 (>45); GLUCOSE, FASTING 92 MG/DL (74-106); HDL CHOLESTEROL 69.3 MG/DL (>40); LDL CHOLESTEROL 75.1 MG/DL (<100); NON-HDL-C 87.7 MG/DL; POTASSIUM SERUM 4.2 MMOL/L (3.5-5.1); SODIUM LEVEL 142 MMOL/L (136-145); TOTAL PROTEIN 6.2 G/DL (5.7-8.2); TRIGLYCERIDES LEVEL 63 MG/DL (<150)
[2023-04-19 08:47] LABS: FREE T4 1.39 NG/DL (0.89-1.76)
[2023-04-19 08:48] LABS: THYROID STIMULATING HORMONE 0.691 uIU/ML (0.55-4.78)
== END ==
LOC: M LAB 06:37
PROVIDERS: ATTEND Nurse Practitioner Family
DX: E78.5 Hyperlipidemia, unspecified (principal); E03.9 Hypothyroidism, unspecified; E55.9 Vitamin D deficiency, unspecified; M16.11 Unilateral primary osteoarthritis, right hip

== ENCOUNTER → 2023-04-19 | Outpatient (CLI) | payer MEDICAID, OTHER | LOC: M RAD 06:39 | PROVIDERS: ATTEND Physical Medicine & Rehabilitation | DX: M16.11 Unilateral primary osteoarthritis, right hip (principal) ==

== ENCOUNTER → 2023-04-28 | Outpatient (CLI) | payer MEDICAID, OTHER | LOC: M RAD 10:30 | PROVIDERS: ATTEND Physician Assistant | DX: I70.308 Unspecified atherosclerosis of unspecified type of bypass graft(s) of the extremities, other extremity (principal) ==

== ENCOUNTER → 2023-05-09 | Outpatient (CLI) | payer OTHER | LOC: M WHC 06:55 | PROVIDERS: ATTEND Surgery | DX: K80.44 Calculus of bile duct with chronic cholecystitis without obstruction (principal) ==

== ENCOUNTER → 2023-06-20 | Outpatient (CLI) | payer OTHER ==
[2023-06-20 11:15] LABS: BASO % 0.1 % (0.0-1.0); HEMATOCRIT 40.2 % (36.0-47.0); HEMOGLOBIN 13.1 g/dl (12.0-15.5); LYMPH # 0.4 10^3/uL (1.5-5.0); LYMPH % 3.2 % (24.0-44.0); MEAN CORPUSCULAR HGB CONC 32.6 g/dl (32.0-36.5); MEAN CORPUSCULAR VOLUME 88.9 fl (80.0-96.0); MONO # 0.5 10^3/uL (0.0-0.8); MONO % 4.3 % (2.0-8.0); NEUTROPHILS # 10.8 10^3/uL (1.5-8.5); NEUTROPHILS % 91.8 % (36.0-66.0); PLATELET COUNT, AUTOMATED 338 10^3/uL (150-450); RED BLOOD COUNT 4.52 10^6/uL (4.00-5.40); WHITE BLOOD COUNT 11.7 10^3/uL (4.0-10.0)
[2023-06-20 11:37] LABS: ALBUMIN 3.1 G/DL (3.2-5.2); ALKALINE PHOSPHATASE 102 U/L (46-116); ALT/SGPT 16 U/L (7.0-40); AST/SGOT 9 U/L (<34); BILIRUBIN,TOTAL 0.5 MG/DL (0.3-1.2); BLOOD UREA NITROGEN 27 MG/DL (9-23); CALCIUM LEVEL 8.3 MG/DL (8.3-10.6); CARBON DIOXIDE LEVEL 25 MMOL/L (20-31); CHLORIDE LEVEL 108 MMOL/L (98-107); CREATININE FOR GFR 0.62 MG/DL (0.55-1.30); GLOMERULAR FILTRATION RATE > 60.0 (>45); GLUCOSE, FASTING 100 MG/DL (74-106); SODIUM LEVEL 140 MMOL/L (136-145); TOTAL PROTEIN 6.2 G/DL (5.7-8.2)
== END ==
LOC: M LAB 10:36
PROVIDERS: ATTEND Specialist
DX: I74.9 Embolism and thrombosis of unspecified artery (principal)

== ENCOUNTER 2023-07-12 14:08 | Inpatient (IN) | payer MEDICAID, OTHER ==
[~2023-07-12] VITALS: Ht 157.5 cm; Wt 65.3 kg
[2023-07-12 14:42] LABS: BASO % 0.3 % (0.0-1.0); EOS # 0.1 10^3/uL (0.0-0.5); EOS % 1.5 % (0.0-3.0); HEMATOCRIT 39.6 % (36.0-47.0); HEMOGLOBIN 12.9 g/dl (12.0-15.5); LYMPH # 1.3 10^3/uL (1.5-5.0); LYMPH % 13.9 % (24.0-44.0); MEAN CORPUSCULAR HEMOGLOBIN 29.3 pg (27.0-33.0); MEAN CORPUSCULAR HGB CONC 32.6 g/dl (32.0-36.5); MEAN CORPUSCULAR VOLUME 89.8 fl (80.0-96.0); MONO # 0.8 10^3/uL (0.0-0.8); MONO % 9.1 % (2.0-8.0); NEUTROPHILS # 6.9 10^3/uL (1.5-8.5); NEUTROPHILS % 74.6 % (36.0-66.0); PLATELET COUNT, AUTOMATED 378 10^3/uL (150-450); RED BLOOD COUNT 4.41 10^6/uL (4.00-5.40); WHITE BLOOD COUNT 9.3 10^3/uL (4.0-10.0)
[2023-07-12 15:05] LABS: ALBUMIN 3.1 G/DL (3.2-5.2); ALKALINE PHOSPHATASE 115 U/L (46-116); ALT/SGPT 15 U/L (7.0-40); AST/SGOT 10 U/L (<34); BILIRUBIN,DIRECT 0.2 MG/DL (<0.4); BILIRUBIN,TOTAL 0.6 MG/DL (0.3-1.2); BLOOD UREA NITROGEN 21 MG/DL (9-23); CALCIUM LEVEL 8.9 MG/DL (8.3-10.6); CARBON DIOXIDE LEVEL 25 MMOL/L (20-31); CHLORIDE LEVEL 109 MMOL/L (98-107); CREATININE FOR GFR 0.56 MG/DL (0.55-1.30); GLOMERULAR FILTRATION RATE > 60.0 (>45); GLUCOSE, FASTING 110 MG/DL (74-106); POTASSIUM SERUM 3.3 MMOL/L (3.5-5.1); SODIUM LEVEL 140 MMOL/L (136-145)
[2023-07-12] MEDS ORDERED: ISOVUE-370 76% 100ML VIAL As Ordered ONE (15:09)
[2023-07-12 15:10] LABS: CK-MB VALUE MASS 1.3 NG/ML (<3.6); LIPASE 21 U/L (12-53)
[2023-07-12 15:12] LABS: CPK CREATINE PHOSPHOKINASE 77 U/L (34-145); MB/CK RELATIVE INDEX 1.68 (< OR =4)
[2023-07-12 15:19] LABS: RSV AMPLIFICATION NEGATIVE (NEGATIVE)
[2023-07-12] MEDS: methylPREDNISolone 125MG 2ML VIAL IV ONE (15:24)
[2023-07-12] MEDS: POTASSIUM CHLORIDE 10MEQ SR TABLET PO ONE (15:24)
[2023-07-12] MEDS: IPRATROPIUM 0.5MG/ALBUTEROL 2.5MG INH SOL UD 3ML (DUONEB) NEB ONE ×2 (15:39→17:34)
[2023-07-12 17:11] LABS: CK-MB VALUE MASS 1.1 NG/ML (<3.6)
[2023-07-12 17:12] LABS: MB/CK RELATIVE INDEX 2.44 (< OR =4)
[2023-07-12 17:49] LABS: ABG BASE EXCESS 0.4 (-2.0-2.0); ABG HCO3 23.1 MMOL/L (22.0-26.0); ABG PARTIAL PRESSURE CO2 31.6 mmHg (35.0-45.0); ABG PARTIAL PRESSURE O2 58.5 mmHg (75.0-100.0); ABG STANDARD HCO3 24.7 MMOL/L. (22.0-26.0); ABG TOTAL CO2 24.1 MMOL/L (23.0-31.0); ABG pH (ARTERIAL) 7.482 UNITS (7.350-7.450)
[2023-07-12] MEDS ORDERED: CLOP75TA2 PO (19:24)
[2023-07-12] MEDS ORDERED: HOME MED LIST COMPLETE! XX SCH (19:25)
[2023-07-12] MEDS ORDERED: ALBUTEROL 90 MCG/ACT 8GM HFA INHALER INH PRN (23:20)
[2023-07-12] MEDS ORDERED: IPRATROPIUM 0.5MG/ALBUTEROL 2.5MG INH SOL UD 3ML (DUONEB) NEB PRN (23:20)
[2023-07-12] MEDS ORDERED: ACETAMINOPHEN TAB 650MG DOSE (2X325MG) PO PRN (23:20)
[2023-07-12] MEDS: NICOTINE 21MG/24HR 1 EA TRANSDERMAL TD SCH (23:30)
[2023-07-12] MEDS: IPRATROPIUM 0.5MG/ALBUTEROL 2.5MG INH SOL UD 3ML (DUONEB) NEB SCH (23:53)
[2023-07-13] VITALS (9 sets, daily range): BP systolic 128–140; BP diastolic 64–73; TEMP 98.1–98.8; O2SAT 90–96
[2023-07-13] MEDS ORDERED: PILL CUTTER 1 EACH XX ONE (00:09)
[2023-07-13] MEDS ORDERED: PILL CUTTER 1 EACH XX PRN (00:10)
[2023-07-13] MEDS: ATORVASTATIN 20 MG TAB PO SCH (00:14)
[2023-07-13] MEDS: RIVAROXABAN 10MG TAB (XARELTO) PO SCH (00:14)
[2023-07-13] MEDS: predniSONE 10MG TAB PO SCH (00:14)
[2023-07-13] MEDS: LEVOTHYROXINE 125MCG TABLET (0.125MG) PO SCH (05:49)
[2023-07-13] MEDS: guaiFENesin 200 MG TAB PO SCH (05:49)
[2023-07-13] MEDS: LevoFLOXacin 750 MG TABLET PO SCH (05:49)
[2023-07-13 07:23] LABS: BLOOD UREA NITROGEN 19 MG/DL (9-23); CALCIUM LEVEL 8.4 MG/DL (8.3-10.6); CARBON DIOXIDE LEVEL 26 MMOL/L (20-31); CHLORIDE LEVEL 107 MMOL/L (98-107); CREATININE FOR GFR 0.55 MG/DL (0.55-1.30); GLOMERULAR FILTRATION RATE > 60.0 (>45); GLUCOSE, FASTING 150 MG/DL (74-106); POTASSIUM SERUM 4.6 MMOL/L (3.5-5.1); SODIUM LEVEL 139 MMOL/L (136-145)
[2023-07-13] MEDS: VALSARTAN 80 MG TAB (DIOVAN) PO SCH (08:20)
[2023-07-13] MEDS: CLOPIDOGREL 75 MG TAB PO SCH (08:20)
[2023-07-13] MEDS: ASPIRIN 81MG ENTERIC TABLET PO SCH (08:20)
[2023-07-13] MEDS: dilTIAZem **CD** 180MG CAP PO SCH (08:20)
[2023-07-13] MEDS: PANTOPRAZOLE 40MG TAB (PROTONIX) PO SCH (08:20)
[2023-07-13 09:06] LABS: BASO % 0.2 % (0.0-1.0); HEMATOCRIT 35.5 % (36.0-47.0); HEMOGLOBIN 11.6 g/dl (12.0-15.5); LYMPH # 0.5 10^3/uL (1.5-5.0); LYMPH % 7.8 % (24.0-44.0); MEAN CORPUSCULAR HEMOGLOBIN 29.4 pg (27.0-33.0); MEAN CORPUSCULAR HGB CONC 32.7 g/dl (32.0-36.5); MEAN CORPUSCULAR VOLUME 89.9 fl (80.0-96.0); MONO # 0.1 10^3/uL (0.0-0.8); MONO % 1.2 % (2.0-8.0); NEUTROPHILS # 5.4 10^3/uL (1.5-8.5); NEUTROPHILS % 89.8 % (36.0-66.0); PLATELET COUNT, AUTOMATED 372 10^3/uL (150-450); RED BLOOD COUNT 3.95 10^6/uL (4.00-5.40); WHITE BLOOD COUNT 6.1 10^3/uL (4.0-10.0)
[2023-07-13 10:37] LABS: PROCALCITONIN 0.06 ng/ml
[2023-07-13] MEDS ORDERED: ALBUTEROL 90 MCG/ACT 8GM HFA INHALER INH PRN (11:35)
[2023-07-13] MEDS: predniSONE 20 MG TAB PO SCH (11:39)
[2023-07-13] MEDS: IPRATROPIUM 0.5MG/ALBUTEROL 2.5MG INH SOL UD 3ML (DUONEB) NEB SCH (12:00)
[2023-07-13] MEDS: ADVAIR HFA 230/21MCG INHALER INH SCH (19:46)
[2023-07-14] VITALS (9 sets, daily range): BP systolic 116–125; BP diastolic 60–67; TEMP 98.1–98.8; O2SAT 86–94
[2023-07-14 08:27] LABS: BASO % 0.1 % (0.0-1.0); HEMATOCRIT 36.8 % (36.0-47.0); HEMOGLOBIN 11.7 g/dl (12.0-15.5); LYMPH # 0.9 10^3/uL (1.5-5.0); LYMPH % 8.4 % (24.0-44.0); MEAN CORPUSCULAR HEMOGLOBIN 28.5 pg (27.0-33.0); MEAN CORPUSCULAR HGB CONC 31.8 g/dl (32.0-36.5); MEAN CORPUSCULAR VOLUME 89.5 fl (80.0-96.0); MONO # 0.9 10^3/uL (0.0-0.8); MONO % 8.1 % (2.0-8.0); NEUTROPHILS % 82.8 % (36.0-66.0); PLATELET COUNT, AUTOMATED 366 10^3/uL (150-450); RED BLOOD COUNT 4.11 10^6/uL (4.00-5.40); WHITE BLOOD COUNT 10.8 10^3/uL (4.0-10.0)
[2023-07-14 08:59] LABS: BLOOD UREA NITROGEN 20 MG/DL (9-23); CALCIUM LEVEL 8.5 MG/DL (8.3-10.6); CARBON DIOXIDE LEVEL 29 MMOL/L (20-31); CHLORIDE LEVEL 107 MMOL/L (98-107); CREATININE FOR GFR 0.62 MG/DL (0.55-1.30); GLOMERULAR FILTRATION RATE > 60.0 (>45); GLUCOSE, FASTING 88 MG/DL (74-106); POTASSIUM SERUM 4.1 MMOL/L (3.5-5.1); SODIUM LEVEL 141 MMOL/L (136-145)
[2023-07-14] MEDS ORDERED: GUAI20TA PO (11:06)
[2023-07-14] MEDS ORDERED: FAMO40TA3 PO (11:06)
[2023-07-14] MEDS ORDERED: PRED10TA2 PO ×2 (11:06→11:27)
[2023-07-14] MEDS ORDERED: LEVO1TAB40 PO ×2 (11:06→11:27)
[2023-07-14] MEDS ORDERED: MUCI1TAB16 PO (11:27)
[2023-07-14] MEDS ORDERED: MIRA3350 PO (13:04)
[2023-07-14] MEDS ORDERED: COLA100C5 PO (13:04)
[2023-07-14] MEDS: SENOKOT S TAB PO SCH (14:14)
[2023-07-14] MEDS: SIMETHICONE 80MG CHEW TAB PO ONE (14:14)
== END 2023-07-14 18:43 | disposition home or self-care (01) | DRG 194 ==
LOC: EDBD 14:08 → M ED 14:08 → M ED INP 14:09 → ENRESERV 07-13 01:06 → M MSPAV 07-13 01:33 → OBSVTOIN 07-14 07:29
PROVIDERS: ADMIT Internal Medicine; ATTEND Internal Medicine
DX: J18.9 Pneumonia, unspecified organism (principal); J44.0 Chronic obstructive pulmonary disease with (acute) lower respiratory infection; D68.59 Other primary thrombophilia; J98.4 Other disorders of lung; I10 Essential (primary) hypertension; I25.10 Atherosclerotic heart disease of native coronary artery without angina pectoris; E03.9 Hypothyroidism, unspecified; F17.210 Nicotine dependence, cigarettes, uncomplicated; E87.6 Hypokalemia; I25.2 Old myocardial infarction; H40.9 Unspecified glaucoma; E78.00 Pure hypercholesterolemia, unspecified; K21.9 Gastro-esophageal reflux disease without esophagitis; Z71.6 Tobacco abuse counseling; Z79.82 Long term (current) use of aspirin; Z79.890 Hormone replacement therapy; Z79.52 Long term (current) use of systemic steroids; Z79.899 Other long term (current) drug therapy; Z88.1 Allergy status to other antibiotic agents; Z88.8 Allergy status to other drugs, medicaments and biological substances; Z11.52 Encounter for screening for COVID-19; Z95.828 Presence of other vascular implants and grafts; Z90.79 Acquired absence of other genital organ(s); Z90.49 Acquired absence of other specified parts of digestive tract

== ENCOUNTER 2023-08-04 16:14 | Inpatient (IN) | payer OTHER ==
[~2023-08-04] VITALS: Ht 160 cm; Wt 62.8 kg
[~2023-08-04 16:14] MED LIST changes: +CLOP75TA2 PO; +COLA100C5 PO; +FAMO40TA3 PO; +GUAI20TA PO; +MIRA3350 PO; +MUCI1TAB16 PO
[2023-08-04] MEDS ORDERED: ISOVUE-370 76% 100ML VIAL As Ordered ONE (16:59)
[2023-08-04] MEDS: NS 1,000 ML IV SCH (17:00)
[2023-08-04 17:12] LABS: INR 1.12; PROTHROMBIN TIME 14.1 SECONDS (12.5-14.5)
[2023-08-04 17:13] LABS: HEMATOCRIT 38.8 % (36.0-47.0); HEMOGLOBIN 12.9 g/dl (12.0-15.5); MEAN CORPUSCULAR HEMOGLOBIN 29.5 pg (27.0-33.0); MEAN CORPUSCULAR HGB CONC 33.2 g/dl (32.0-36.5); MEAN CORPUSCULAR VOLUME 88.6 fl (80.0-96.0); RED BLOOD COUNT 4.38 10^6/uL (4.00-5.40); WHITE BLOOD COUNT 8.1 10^3/uL (4.0-10.0)
[2023-08-04 17:20] LABS: LIPASE 16 U/L (12-53)
[2023-08-04 17:22] LABS: ALBUMIN 1.7 G/DL (3.2-5.2); ALKALINE PHOSPHATASE 118 U/L (46-116); ALT/SGPT 37 U/L (7.0-40); AST/SGOT 22 U/L (<34); BILIRUBIN,DIRECT 0.5 MG/DL (<0.4); BILIRUBIN,TOTAL 1.3 MG/DL (0.3-1.2); BLOOD UREA NITROGEN 19 MG/DL (9-23); CALCIUM LEVEL 7.1 MG/DL (8.3-10.6); CARBON DIOXIDE LEVEL 27 MMOL/L (20-31); CHLORIDE LEVEL 100 MMOL/L (98-107); CREATININE FOR GFR 0.52 MG/DL (0.55-1.30); GLOMERULAR FILTRATION RATE > 60.0 (>45); GLUCOSE, FASTING 86 MG/DL (74-106); POTASSIUM SERUM 3.2 MMOL/L (3.5-5.1); SODIUM LEVEL 135 MMOL/L (136-145); TOTAL PROTEIN 4.9 G/DL (5.7-8.2)
[2023-08-04 17:27] LABS: PLATELET COUNT, AUTOMATED 133 10^3/uL (150-450)
[2023-08-04 17:29] LABS: ATYPICAL LYMPH 1 % (0-5); EOSINOPHILS 3 % (0-3); LYMPHOCYTES 12 % (16-44); NEUTROPHILS 84 % (28-66)
[2023-08-04 17:30] LABS: ANISOCYTOSIS 1+; PLATELET ESTIMATE DECREASED (NORMAL)
[2023-08-04] MEDS: NS 500 ML IV ONE (17:30)
[2023-08-04] MEDS: fentaNYL 100 MCG/2 ML INJECTION IV ONE (17:36)
[2023-08-04] MEDS: ACETAMINOPHEN 325 MG TAB PO ONE (17:36)
[2023-08-04] MEDS: POTASSIUM CHLORIDE 10MEQ SR TABLET PO ONE (17:59)
[2023-08-04] MEDS: LevoFLOXacin IV 750 MG in IV 1 EA IV ONE (18:24)
[2023-08-04] MEDS: NS 1,910 ML in IV 1 EA IV ONE (18:30)
[2023-08-04] MEDS: ATORVASTATIN 20 MG TAB PO SCH (21:00)
[2023-08-04] MEDS: PANTOPRAZOLE 40MG TAB (PROTONIX) PO SCH (21:00)
[2023-08-04] MEDS ORDERED: AZITHROMYCIN INJ 500 MG, VIAL MATE ADAPTER 1 EACH in NS 250 ML IV SCH (21:05)
[2023-08-04] MEDS ORDERED: PRED10TA2 PO (21:17)
[2023-08-04] MEDS ORDERED: DOCU100C16 PO (21:17)
[2023-08-04] MEDS ORDERED: ASPI81CH33 PO (21:17)
[2023-08-04] MEDS ORDERED: POLY510P14 PO (21:17)
[2023-08-04] MEDS ORDERED: MUCI1TAB16 PO (21:17)
[2023-08-04] MEDS ORDERED: FAMO40TA3 PO (21:19)
[2023-08-04] MEDS ORDERED: HOME MED LIST COMPLETE! XX SCH (21:20)
[2023-08-04] MEDS: KCL 10MEQ/100ML SWI (KRUN) 10 MEQ in IV 1 EA IV SCH (21:23)
[2023-08-04 22:09] VITALS: BP 100/58; O2SAT 96
[2023-08-04 22:16] VITALS: TEMP 95.6
[2023-08-04 23:37] VITALS: BP 92/55; TEMP 95.3; O2SAT 95
[2023-08-05] VITALS (10 sets, daily range): BP systolic 92–110; BP diastolic 52–62; TEMP 95.3–98.9; O2SAT 89–96
[2023-08-05] MEDS: ALBUTEROL SULFATE 2.5MG/0.5ML INH NEB SOLN NEB SCH (02:00)
[2023-08-05] MEDS: IPRATROPIUM 0.5MG/ALBUTEROL 2.5MG INH SOL UD 3ML (DUONEB) NEB SCH (02:15)
[2023-08-05] MEDS: LEVOTHYROXINE 125MCG TABLET (0.125MG) PO SCH (06:04)
[2023-08-05 06:27] LABS: MEAN CORPUSCULAR HEMOGLOBIN 29.1 pg (27.0-33.0); MEAN CORPUSCULAR HGB CONC 32.2 g/dl (32.0-36.5); MEAN CORPUSCULAR VOLUME 90.6 fl (80.0-96.0); PLATELET COUNT, AUTOMATED 115 10^3/uL (150-450); WHITE BLOOD COUNT 5.5 10^3/uL (4.0-10.0)
[2023-08-05 06:36] LABS: HEMATOCRIT 31.7 % (36.0-47.0); HEMOGLOBIN 10.2 g/dl (12.0-15.5)
[2023-08-05 07:01] LABS: BLOOD UREA NITROGEN 20 MG/DL (9-23); CALCIUM LEVEL 6.7 MG/DL (8.3-10.6); CARBON DIOXIDE LEVEL 22 MMOL/L (20-31); CHLORIDE LEVEL 109 MMOL/L (98-107); CREATININE FOR GFR 0.45 MG/DL (0.55-1.30); GLOMERULAR FILTRATION RATE > 60.0 (>45); GLUCOSE, FASTING 80 MG/DL (74-106); POTASSIUM SERUM 4.6 MMOL/L (3.5-5.1); SODIUM LEVEL 138 MMOL/L (136-145)
[2023-08-05 08:26] LABS: ALBUMIN 1.3 G/DL (3.2-5.2)
[2023-08-05] MEDS: ADVAIR HFA 230/21MCG INHALER INH SCH (08:27)
[2023-08-05] MEDS ORDERED: dilTIAZem **CD** 180MG CAP PO SCH (09:00)
[2023-08-05] MEDS: CLOPIDOGREL 75 MG TAB PO SCH (10:04)
[2023-08-05] MEDS: ASPIRIN 81MG CHEW TABLET PO SCH (10:04)
[2023-08-05] MEDS: FAMOTIDINE 20 MG TAB PO SCH (10:04)
[2023-08-05] MEDS: predniSONE 10MG TAB PO SCH (10:04)
[2023-08-05] MEDS: LevoFLOXacin IV 750 MG in IV 1 EA IV SCH (18:57)
[2023-08-05] MEDS: SENOKOT S TAB PO SCH (21:00)
[2023-08-05] MEDS: ACETAMINOPHEN TAB 650MG DOSE (2X325MG) PO PRN (21:04)
[2023-08-06] VITALS (8 sets, daily range): BP systolic 110–155; BP diastolic 59–89; TEMP 97.2–101.6; O2SAT 89–95
[2023-08-06] MEDS ORDERED: MOM 30ML SUSPENSION UDC PO PRN (09:00)
[2023-08-06] MEDS ORDERED: MOM 30ML SUSPENSION UDC PO SCH (09:00)
[2023-08-06] MEDS: MOM 30ML SUSPENSION UDC PO SCH (12:11)
[2023-08-06] MEDS: FLEET ENEMA PR ONE (12:11)
[2023-08-06] MEDS: SODIUM CHLORIDE HYPERTONIC 3% 4ML NEB SOL INH ONE (14:38)
[2023-08-07] VITALS (11 sets, daily range): BP systolic 109–160; BP diastolic 67–90; TEMP 97–101.7; O2SAT 90–98
[2023-08-07] MEDS: BENZONATATE 100MG CAPSULE PO PRN (04:47)
[2023-08-07 06:00] LABS: HEMATOCRIT 29.8 % (36.0-47.0); HEMOGLOBIN 9.8 g/dl (12.0-15.5); MEAN CORPUSCULAR HEMOGLOBIN 29.3 pg (27.0-33.0); MEAN CORPUSCULAR HGB CONC 32.9 g/dl (32.0-36.5); MEAN CORPUSCULAR VOLUME 89.2 fl (80.0-96.0); PLATELET COUNT, AUTOMATED 190 10^3/uL (150-450); RED BLOOD COUNT 3.34 10^6/uL (4.00-5.40); WHITE BLOOD COUNT 2.9 10^3/uL (4.0-10.0)
[2023-08-07 06:37] LABS: BLOOD UREA NITROGEN 8 MG/DL (9-23); CALCIUM LEVEL 7.4 MG/DL (8.3-10.6); CARBON DIOXIDE LEVEL 26 MMOL/L (20-31); CHLORIDE LEVEL 101 MMOL/L (98-107); CREATININE FOR GFR 0.45 MG/DL (0.55-1.30); GLOMERULAR FILTRATION RATE > 60.0 (>45); GLUCOSE, FASTING 82 MG/DL (74-106); POTASSIUM SERUM 3.6 MMOL/L (3.5-5.1); SODIUM LEVEL 135 MMOL/L (136-145)
[2023-08-07 06:47] LABS: ATYPICAL LYMPH 4 % (0-5); BASOPHILS 1 % (0-1); EOSINOPHILS 4 % (0-3); LYMPHOCYTES 12 % (16-44); METAMYELOCYTES 1 % (0-0); MONOCYTES 7 % (0-5); NEUTROPHILS 65 % (28-66)
[2023-08-07 06:49] LABS: ANISOCYTOSIS 2+; OVALOCYTES 1+; PLATELET CLUMPS SMALL AMT; PLATELET ESTIMATE NORMAL (NORMAL); POLYCHROMASIA 1+
[2023-08-07] MEDS: BISACODYL 10MG SUPP PR ONE (16:45)
[2023-08-07] MEDS: LevoFLOXacin 750 MG TABLET PO SCH (18:22)
[2023-08-08 04:41] VITALS: BP 153/92; TEMP 102.1; O2SAT 89
[2023-08-08 06:05] LABS: EOS # 0.1 10^3/uL (0.0-0.5); EOS % 1.9 % (0.0-3.0); HEMATOCRIT 34.7 % (36.0-47.0); HEMOGLOBIN 11.5 g/dl (12.0-15.5); LYMPH # 0.4 10^3/uL (1.5-5.0); LYMPH % 11.7 % (24.0-44.0); MEAN CORPUSCULAR HEMOGLOBIN 29.2 pg (27.0-33.0); MEAN CORPUSCULAR HGB CONC 33.1 g/dl (32.0-36.5); MEAN CORPUSCULAR VOLUME 88.1 fl (80.0-96.0); MONO # 0.3 10^3/uL (0.0-0.8); MONO % 8.6 % (2.0-8.0); NEUTROPHILS # 2.4 10^3/uL (1.5-8.5); NEUTROPHILS % 76.5 % (36.0-66.0); PLATELET COUNT, AUTOMATED 254 10^3/uL (150-450); RED BLOOD COUNT 3.94 10^6/uL (4.00-5.40); WHITE BLOOD COUNT 3.2 10^3/uL (4.0-10.0)
[2023-08-08 06:34] LABS: BLOOD UREA NITROGEN 6 MG/DL (9-23); CALCIUM LEVEL 7.2 MG/DL (8.3-10.6); CARBON DIOXIDE LEVEL 25 MMOL/L (20-31); CHLORIDE LEVEL 98 MMOL/L (98-107); CREATININE FOR GFR 0.49 MG/DL (0.55-1.30); GLOMERULAR FILTRATION RATE > 60.0 (>45); GLUCOSE, FASTING 90 MG/DL (74-106); POTASSIUM SERUM 3.7 MMOL/L (3.5-5.1); SODIUM LEVEL 131 MMOL/L (136-145)
[2023-08-08 08:25] VITALS: TEMP 98.3
[2023-08-08 13:27] VITALS: BP 113/75; TEMP 98; O2SAT 98
[2023-08-08] MEDS: dilTIAZem 120MG **CD** CAPSULE PO SCH (13:30)
[2023-08-08 17:32] LABS: IMMUNOGLOBULIN A 211.8 MG/DL (40-350); IMMUNOGLOBULIN G 434 MG/DL (650-1600)
[2023-08-08 18:07] LABS: HIV 1&2 SCREEN NEGATIVE (NEGATIVE)
[2023-08-08 20:17] VITALS: BP 107/62; TEMP 97.3; O2SAT 93
[2023-08-09] VITALS (10 sets, daily range): BP systolic 94–155; BP diastolic 51–76; TEMP 96.3–99.5; O2SAT 89–96
[2023-08-09 05:57] LABS: BASO % 0.4 % (0.0-1.0); EOS # 0.1 10^3/uL (0.0-0.5); HEMATOCRIT 33.2 % (36.0-47.0); HEMOGLOBIN 11.1 g/dl (12.0-15.5); LYMPH # 0.4 10^3/uL (1.5-5.0); LYMPH % 14.3 % (24.0-44.0); MEAN CORPUSCULAR HEMOGLOBIN 29.4 pg (27.0-33.0); MEAN CORPUSCULAR HGB CONC 33.4 g/dl (32.0-36.5); MEAN CORPUSCULAR VOLUME 87.8 fl (80.0-96.0); MONO # 0.3 10^3/uL (0.0-0.8); MONO % 10.7 % (2.0-8.0); NEUTROPHILS # 1.7 10^3/uL (1.5-8.5); NEUTROPHILS % 69.3 % (36.0-66.0); PLATELET COUNT, AUTOMATED 310 10^3/uL (150-450); RED BLOOD COUNT 3.78 10^6/uL (4.00-5.40); WHITE BLOOD COUNT 2.4 10^3/uL (4.0-10.0)
[2023-08-09 06:24] LABS: BLOOD UREA NITROGEN 12 MG/DL (9-23); CALCIUM LEVEL 7.7 MG/DL (8.3-10.6); CARBON DIOXIDE LEVEL 24 MMOL/L (20-31); CHLORIDE LEVEL 101 MMOL/L (98-107); CREATININE FOR GFR 0.44 MG/DL (0.55-1.30); GLOMERULAR FILTRATION RATE > 60.0 (>45); GLUCOSE, FASTING 92 MG/DL (74-106); POTASSIUM SERUM 3.5 MMOL/L (3.5-5.1); SODIUM LEVEL 135 MMOL/L (136-145)
[2023-08-09] MEDS ORDERED: ROCURONIUM BROMIDE 50MG/5ML VIAL As Ordered ONE (09:03)
[2023-08-09] MEDS ORDERED: propofoL 200 MG/20 ML VIAL As Ordered ONE (09:03)
[2023-08-09] MEDS ORDERED: ONDANSETRON 4MG 2ML VIAL As Ordered ONE (09:03)
[2023-08-09] MEDS ORDERED: LIDOCAINE 2% 100MG/5ML SDV (FOR ANES.) As Ordered ONE (09:03)
[2023-08-09] MEDS ORDERED: KETOROLAC 60MG 2ML VIAL As Ordered ONE (09:03)
[2023-08-09] MEDS ORDERED: fentaNYL 100 MCG/2 ML INJECTION As Ordered ONE (09:04)
[2023-08-09] MEDS ORDERED: MIDAZOLAM INJ 2MG/2ML VIAL As Ordered ONE (09:04)
[2023-08-09] MEDS ORDERED: dexmedeTOMIDine (4MCG/ML)200MCG/50ML BTL (PRECEDEX) As Ordered ONE (09:48)
[2023-08-09] MEDS: CETACAINE SPRAY 5GM As Ordered ONE (10:18)
[2023-08-09] MEDS: LIDOCAINE 4% TOPICAL SOLN 50 ML BTL As Ordered ONE (10:18)
[2023-08-09] MEDS: LIDOCAINE 1% SDV 30ML VIAL As Ordered ONE (10:18)
[2023-08-09] MEDS: EPINEPHrine 1MG/10ML SYRINGE 1.5IN As Ordered ONE (10:20)
[2023-08-09] MEDS: ceFAZolin 2 GM/D5W 50 ML IV BAG As Ordered ONE (10:20)
[2023-08-09] MEDS: THROMBIN 5,000 UNITS VIAL As Ordered ONE (10:20)
[2023-08-09] MEDS: NS 1,000 ML IV ONE ×2 (14:16→22:36)
[2023-08-09 16:09] LABS: CYCLIC CITRULLINATED PEPTIDE 12 units (0-19)
[2023-08-09 21:30] LABS: VENOUS BASE EXCESS 0.9 (-2.0-2.0); VENOUS HCO3 25.7 MMOL/L (23.0-27.0); VENOUS O2 SATURATION 88.5 % (60.0-80.0); VENOUS PARTIAL PRESSURE CO2 41.3 mmHg (38.0-50.0); VENOUS PARTIAL PRESSURE O2 55.2 mmHg (30.0-50.0); VENOUS PH 7.411 UNITS (7.330-7.430); VENOUS STANDARD HCO3 25.1 MMOL/L; VENOUS TOTAL CO2 26.9 MMOL/L (24.0-28.0)
[2023-08-09 21:35] LABS: HEMATOCRIT 32.3 % (36.0-47.0); HEMOGLOBIN 10.4 g/dl (12.0-15.5); LYMPH # 0.1 10^3/uL (1.5-5.0); LYMPH % 5.2 % (24.0-44.0); MEAN CORPUSCULAR HEMOGLOBIN 29.3 pg (27.0-33.0); MEAN CORPUSCULAR HGB CONC 32.2 g/dl (32.0-36.5); MONO # 0.1 10^3/uL (0.0-0.8); MONO % 5.6 % (2.0-8.0); NEUTROPHILS # 2.2 10^3/uL (1.5-8.5); NEUTROPHILS % 87.6 % (36.0-66.0); PLATELET COUNT, AUTOMATED 344 10^3/uL (150-450); RED BLOOD COUNT 3.55 10^6/uL (4.00-5.40); WHITE BLOOD COUNT 2.5 10^3/uL (4.0-10.0)
[2023-08-09 22:07] LABS: ALBUMIN 1.7 G/DL (3.2-5.2); ALKALINE PHOSPHATASE 105 U/L (46-116); ALT/SGPT 17 U/L (7.0-40); AST/SGOT 14 U/L (<34); BILIRUBIN,TOTAL 0.5 MG/DL (0.3-1.2); BLOOD UREA NITROGEN 16 MG/DL (9-23); CALCIUM LEVEL 7.3 MG/DL (8.3-10.6); CARBON DIOXIDE LEVEL 24 MMOL/L (20-31); CHLORIDE LEVEL 102 MMOL/L (98-107); CREATININE FOR GFR 0.55 MG/DL (0.55-1.30); GLOMERULAR FILTRATION RATE > 60.0 (>45); GLUCOSE, FASTING 213 MG/DL (74-106); MAGNESIUM LEVEL 2.4 MG/DL (1.8-2.4); POTASSIUM SERUM 4.3 MMOL/L (3.5-5.1); SODIUM LEVEL 134 MMOL/L (136-145); TOTAL PROTEIN 4.7 G/DL (5.7-8.2)
[2023-08-10] VITALS: BP 120/62; TEMP 97.9; O2SAT 91
[2023-08-10 04:10] VITALS: BP 120/61; TEMP 98.1; O2SAT 90
[2023-08-10 06:05] LABS: HEMATOCRIT 29.5 % (36.0-47.0); HEMOGLOBIN 9.8 g/dl (12.0-15.5); MEAN CORPUSCULAR HEMOGLOBIN 29.3 pg (27.0-33.0); MEAN CORPUSCULAR HGB CONC 33.2 g/dl (32.0-36.5); MEAN CORPUSCULAR VOLUME 88.3 fl (80.0-96.0); PLATELET COUNT, AUTOMATED 362 10^3/uL (150-450); RED BLOOD COUNT 3.34 10^6/uL (4.00-5.40); WHITE BLOOD COUNT 3.2 10^3/uL (4.0-10.0)
[2023-08-10 06:32] LABS: BLOOD UREA NITROGEN 17 MG/DL (9-23); CALCIUM LEVEL 7.3 MG/DL (8.3-10.6); CARBON DIOXIDE LEVEL 25 MMOL/L (20-31); CHLORIDE LEVEL 104 MMOL/L (98-107); CREATININE FOR GFR 0.45 MG/DL (0.55-1.30); GLOMERULAR FILTRATION RATE > 60.0 (>45); GLUCOSE, FASTING 117 MG/DL (74-106); POTASSIUM SERUM 4.2 MMOL/L (3.5-5.1); SODIUM LEVEL 136 MMOL/L (136-145)
[2023-08-10 07:12] LABS: LYMPHOCYTES 10 % (16-44); MONOCYTES 8 % (0-5); NEUTROPHILS 82 % (28-66); NUCLEATED RED BLOOD CELL 1 % (0-0); PLATELET ESTIMATE NORMAL (NORMAL)
[2023-08-10 07:13] LABS: ANISOCYTOSIS 1+
[2023-08-10 14:07] VITALS: BP 139/71; TEMP 97.7; O2SAT 94
[2023-08-10 20:15] VITALS: BP 138/71; TEMP 98.8; O2SAT 94
[2023-08-10] MEDS: traZODone 25MG PER 1/2 TABLET PO PRN (21:04)
[2023-08-11 05:10] VITALS: BP 123/64; TEMP 98.8; O2SAT 93
[2023-08-11 05:50] LABS: BASO % 0.3 % (0.0-1.0); EOS % 0.6 % (0.0-3.0); HEMATOCRIT 29.6 % (36.0-47.0); HEMOGLOBIN 9.5 g/dl (12.0-15.5); LYMPH # 0.4 10^3/uL (1.5-5.0); LYMPH % 11.7 % (24.0-44.0); MEAN CORPUSCULAR HEMOGLOBIN 28.9 pg (27.0-33.0); MEAN CORPUSCULAR HGB CONC 32.1 g/dl (32.0-36.5); MONO # 0.5 10^3/uL (0.0-0.8); MONO % 15.2 % (2.0-8.0); NEUTROPHILS # 2.3 10^3/uL (1.5-8.5); NEUTROPHILS % 68.1 % (36.0-66.0); PLATELET COUNT, AUTOMATED 425 10^3/uL (150-450); RED BLOOD COUNT 3.29 10^6/uL (4.00-5.40); WHITE BLOOD COUNT 3.4 10^3/uL (4.0-10.0)
[2023-08-11 06:18] LABS: BLOOD UREA NITROGEN 14 MG/DL (9-23); CALCIUM LEVEL 7.9 MG/DL (8.3-10.6); CARBON DIOXIDE LEVEL 25 MMOL/L (20-31); CHLORIDE LEVEL 104 MMOL/L (98-107); CREATININE FOR GFR 0.51 MG/DL (0.55-1.30); GLOMERULAR FILTRATION RATE > 60.0 (>45); GLUCOSE, FASTING 81 MG/DL (74-106); SODIUM LEVEL 137 MMOL/L (136-145)
[2023-08-11] MEDS: predniSONE 5 MG TAB PO SCH (08:41)
[2023-08-11] MEDS ORDERED: VALS40TA9 PO (12:12)
[2023-08-11] MEDS ORDERED: PRED5TA PO (12:12)
[2023-08-11] MEDS ORDERED: MOM30SS2 PO (14:27)
[2023-08-11] MEDS ORDERED: SENN1TAB85 PO (14:27)
[2023-08-12 17:09] LABS: ASPERGILLUS FLAVUS ABY Negative (Neg:<1:1); ASPERGILLUS FUMIGATUS ABY Negative (Neg:<1:1); ASPERGILLUS NIGER ABY Negative (Neg:<1:1); IgG SERUM (part of Subclasses) 436 mg/dL (586-1602); IgG Subclass 1 223 mg/dL (248-810); IgG Subclass 2 138 mg/dL (130-555); IgG Subclass 3 13 mg/dL (15-102); IgG Subclass 4 17 mg/dL (2-96)
[2023-08-15 06:16] LABS: BLASTOMYCES ANTIBODY LEVEL Negative (Neg:<1:1)
[2023-08-16 17:09] LABS: HISTO GAL'MANNAN AG UR QNT 3.5 ng/mL (.); HISTOPLASMA GAL'MANNAN AG UR Positive (<0.2 ng/mL)
== END 2023-08-11 16:59 | disposition home or self-care (01) | DRG 871 ==
LOC: EDBD 16:14 → EDSEX 16:14 → M ED 16:14 → M ED INP 20:52 → M PCU 22:10 → M ED INP 08-06 11:47 → M PCU 08-06 12:10 → M MSPAV 08-06 16:39
PROVIDERS: ADMIT Internal Medicine; ATTEND Internal Medicine Nephrology
PROC: 0B9G8ZX Drainage of Left Upper Lung Lobe, Via Natural or Artificial Opening Endoscopic, Diagnostic (ICD-10-PCS; principal; 2023-08-09 09:45)
DX: A41.9 Sepsis, unspecified organism (principal); J18.9 Pneumonia, unspecified organism; R04.2 Hemoptysis; F17.210 Nicotine dependence, cigarettes, uncomplicated; J44.9 Chronic obstructive pulmonary disease, unspecified; I10 Essential (primary) hypertension; E87.6 Hypokalemia; E78.5 Hyperlipidemia, unspecified; D69.6 Thrombocytopenia, unspecified; K59.00 Constipation, unspecified; I25.10 Atherosclerotic heart disease of native coronary artery without angina pectoris; M81.0 Age-related osteoporosis without current pathological fracture; K57.90 Diverticulosis of intestine, part unspecified, without perforation or abscess without bleeding; R33.9 Retention of urine, unspecified; Z95.2 Presence of prosthetic heart valve; E03.2 Hypothyroidism due to medicaments and other exogenous substances; Z79.01 Long term (current) use of anticoagulants; Z88.8 Allergy status to other drugs, medicaments and biological substances; Z79.899 Other long term (current) drug therapy; Z79.82 Long term (current) use of aspirin; Z79.52 Long term (current) use of systemic steroids; R91.8 Other nonspecific abnormal finding of lung field

== ENCOUNTER 2023-09-01 08:19 | Observation (INO) | payer MEDICARE, OTHER ==
[~2023-09-01] VITALS: Ht 160 cm; Wt 59.8 kg
[~2023-09-01 08:19] MED LIST changes: +ASPI81CH33 PO; +DOCU100C16 PO; +MOM30SS2 PO; +POLY510P14 PO; +PRED5TA PO; +SENN1TAB85 PO; +VALS40TA9 PO
[2023-09-01 09:11] LABS: BASO % 0.3 % (0.0-1.0); HEMATOCRIT 31.4 % (36.0-47.0); HEMOGLOBIN 10.2 g/dl (12.0-15.5); LYMPH # 0.4 10^3/uL (1.5-5.0); LYMPH % 11.3 % (24.0-44.0); MEAN CORPUSCULAR HEMOGLOBIN 29.8 pg (27.0-33.0); MEAN CORPUSCULAR HGB CONC 32.5 g/dl (32.0-36.5); MEAN CORPUSCULAR VOLUME 91.8 fl (80.0-96.0); MONO # 0.1 10^3/uL (0.0-0.8); MONO % 1.7 % (2.0-8.0); NEUTROPHILS # 3.1 10^3/uL (1.5-8.5); NEUTROPHILS % 85.6 % (36.0-66.0); PLATELET COUNT, AUTOMATED 446 10^3/uL (150-450); RED BLOOD COUNT 3.42 10^6/uL (4.00-5.40); WHITE BLOOD COUNT 3.6 10^3/uL (4.0-10.0)
[2023-09-01] MEDS: methylPREDNISolone 125MG 2ML VIAL IV ONE (09:21)
[2023-09-01] MEDS: IPRATROPIUM 0.5MG/ALBUTEROL 2.5MG INH SOL UD 3ML (DUONEB) NEB ONE (09:25)
[2023-09-01 09:31] LABS: CK-MB VALUE MASS 1.2 NG/ML (<3.6); PROCALCITONIN 0.08 ng/ml
[2023-09-01 09:32] LABS: ALBUMIN 2.3 G/DL (3.2-5.2); ALKALINE PHOSPHATASE 111 U/L (46-116); ALT/SGPT 12 U/L (7.0-40); AST/SGOT 12 U/L (<34); BILIRUBIN,DIRECT 0.2 MG/DL (<0.4); BILIRUBIN,TOTAL 0.6 MG/DL (0.3-1.2); BLOOD UREA NITROGEN 10 MG/DL (9-23); CALCIUM LEVEL 8.3 MG/DL (8.3-10.6); CARBON DIOXIDE LEVEL 24 MMOL/L (20-31); CHLORIDE LEVEL 106 MMOL/L (98-107); CREATININE FOR GFR 0.46 MG/DL (0.55-1.30); GLOMERULAR FILTRATION RATE > 60.0 (>45); GLUCOSE, FASTING 189 MG/DL (74-106); POTASSIUM SERUM 4.5 MMOL/L (3.5-5.1); SODIUM LEVEL 139 MMOL/L (136-145); TOTAL PROTEIN 5.5 G/DL (5.7-8.2)
[2023-09-01 09:33] LABS: CPK CREATINE PHOSPHOKINASE 37 U/L (34-145); MB/CK RELATIVE INDEX 3.24 (< OR =4)
[2023-09-01] MEDS ORDERED: VITA500045 PO (09:47)
[2023-09-01] MEDS ORDERED: PRED5PAK PO (09:47)
[2023-09-01] MEDS ORDERED: NITR0.2D5 TOP (09:47)
[2023-09-01] MEDS ORDERED: VALS40TA9 PO (09:47)
[2023-09-01] MEDS ORDERED: HOME MED LIST COMPLETE! XX SCH (09:50)
[2023-09-01 10:32] LABS: CK-MB VALUE MASS < 1.0 NG/ML (<3.6)
[2023-09-01 10:33] LABS: CPK CREATINE PHOSPHOKINASE 34 U/L (34-145); MB/CK RELATIVE INDEX 2.94 (< OR =4)
[2023-09-01 11:08] LABS: ABG BASE EXCESS 0.5 (-2.0-2.0); ABG HCO3 22.8 MMOL/L (22.0-26.0); ABG O2 SATURATION 95.2 % (95.0-99.0); ABG PARTIAL PRESSURE CO2 29.6 mmHg (35.0-45.0); ABG PARTIAL PRESSURE O2 73.2 mmHg (75.0-100.0); ABG STANDARD HCO3 24.9 MMOL/L. (22.0-26.0); ABG TOTAL CO2 23.7 MMOL/L (23.0-31.0); ABG pH (ARTERIAL) 7.505 UNITS (7.350-7.450)
[2023-09-01] MEDS: LevoFLOXacin IV 750 MG in IV 1 EA IV ONE (14:37)
[2023-09-01] MEDS ORDERED: MOM 30ML SUSPENSION UDC PO PRN (15:20)
[2023-09-01 17:13] VITALS: BP 117/82; TEMP 98.8; O2SAT 95
[2023-09-01] MEDS: methylPREDNISolone 125MG 2ML VIAL IV SCH (17:23)
[2023-09-01] MEDS: ACETAMINOPHEN TAB 650MG DOSE (2X325MG) PO PRN (17:23)
[2023-09-01 19:42] VITALS: BP 120/62; TEMP 98.6; O2SAT 95
[2023-09-01] MEDS: IPRATROPIUM 0.5MG/ALBUTEROL 2.5MG INH SOL UD 3ML (DUONEB) NEB SCH (20:22)
[2023-09-01] MEDS: ADVAIR HFA 230/21MCG INHALER INH SCH (20:22)
[2023-09-01] MEDS ORDERED: PILL CUTTER 1 EACH XX PRN (20:35)
[2023-09-01] MEDS: DOCUSATE SODIUM 100MG CAPSULE PO SCH (21:37)
[2023-09-01] MEDS: ATORVASTATIN 20 MG TAB PO SCH (21:37)
[2023-09-01] MEDS: RIVAROXABAN 10MG TAB (XARELTO) PO SCH (21:38)
[2023-09-02] MEDS: ONDANSETRON 4MG 2ML VIAL IV PRN (01:00)
[2023-09-02 04:30] VITALS: BP 116/58; TEMP 98.8; O2SAT 91
[2023-09-02] MEDS: LEVOTHYROXINE 125MCG TABLET (0.125MG) PO SCH (05:55)
[2023-09-02 06:52] LABS: HEMATOCRIT 31.1 % (36.0-47.0); HEMOGLOBIN 9.9 g/dl (12.0-15.5); MEAN CORPUSCULAR HEMOGLOBIN 29.4 pg (27.0-33.0); MEAN CORPUSCULAR HGB CONC 31.8 g/dl (32.0-36.5); MEAN CORPUSCULAR VOLUME 92.3 fl (80.0-96.0); PLATELET COUNT, AUTOMATED 435 10^3/uL (150-450); RED BLOOD COUNT 3.37 10^6/uL (4.00-5.40); WHITE BLOOD COUNT 9.2 10^3/uL (4.0-10.0)
[2023-09-02 07:27] LABS: BLOOD UREA NITROGEN 12 MG/DL (9-23); CALCIUM LEVEL 8.6 MG/DL (8.3-10.6); CARBON DIOXIDE LEVEL 27 MMOL/L (20-31); CHLORIDE LEVEL 104 MMOL/L (98-107); CREATININE FOR GFR 0.54 MG/DL (0.55-1.30); GLOMERULAR FILTRATION RATE > 60.0 (>45); GLUCOSE, FASTING 152 MG/DL (74-106); POTASSIUM SERUM 4.5 MMOL/L (3.5-5.1); SODIUM LEVEL 138 MMOL/L (136-145)
[2023-09-02] MEDS: CLOPIDOGREL 75 MG TAB PO SCH (08:54)
[2023-09-02] MEDS: OMEPRAZOLE 20MG CAP PO SCH (08:54)
[2023-09-02] MEDS: AZITHROMYCIN INJ 500 MG, VIAL MATE ADAPTER 1 EACH in NS 250 ML IV SCH (08:56)
[2023-09-02] MEDS: NITROGLYCERIN 0.2 MG/HR PATCH TOP SCH (10:28)
[2023-09-02] MEDS: VALSARTAN 40MG TABLET (DIOVAN) PO SCH (10:28)
[2023-09-02] MEDS: guaiFENesin 200 MG TAB PO SCH (10:29)
[2023-09-02] MEDS ORDERED: SPOR1CAP PO (11:02)
[2023-09-02 14:00] VITALS: BP 101/51; TEMP 98.8; O2SAT 93
[2023-09-02] MEDS: RIVAROXABAN 2.5 MG PO SCH (14:35)
[2023-09-02] MEDS: ASPIRIN 81MG ENTERIC TABLET PO SCH (17:52)
[2023-09-02] MEDS: methylPREDNISolone 125MG 2ML VIAL IV ONE (19:20)
[2023-09-02 22:00] VITALS: BP 115/53; TEMP 99; O2SAT 92
[2023-09-03 06:00] VITALS: BP 129/60; TEMP 99.3; O2SAT 91
[2023-09-03] MEDS: predniSONE 20 MG TAB PO SCH (08:24)
[2023-09-03 09:13] LABS: HEMATOCRIT 31.2 % (36.0-47.0); HEMOGLOBIN 9.9 g/dl (12.0-15.5); MEAN CORPUSCULAR HEMOGLOBIN 29.6 pg (27.0-33.0); MEAN CORPUSCULAR HGB CONC 31.7 g/dl (32.0-36.5); MEAN CORPUSCULAR VOLUME 93.1 fl (80.0-96.0); PLATELET COUNT, AUTOMATED 450 10^3/uL (150-450); RED BLOOD COUNT 3.35 10^6/uL (4.00-5.40); WHITE BLOOD COUNT 12.8 10^3/uL (4.0-10.0)
[2023-09-03 09:37] LABS: BLOOD UREA NITROGEN 21 MG/DL (9-23); CALCIUM LEVEL 8.5 MG/DL (8.3-10.6); CARBON DIOXIDE LEVEL 27 MMOL/L (20-31); CHLORIDE LEVEL 105 MMOL/L (98-107); CREATININE FOR GFR 0.52 MG/DL (0.55-1.30); GLOMERULAR FILTRATION RATE > 60.0 (>45); GLUCOSE, FASTING 109 MG/DL (74-106); POTASSIUM SERUM 4.1 MMOL/L (3.5-5.1); SODIUM LEVEL 139 MMOL/L (136-145)
[2023-09-03 14:00] VITALS: BP 140/73; TEMP 99; O2SAT 92
[2023-09-03] MEDS: ITRACONAZOLE 100 MG CAP (SPORANOX) PO SCH (16:04)
[2023-09-03 22:00] VITALS: BP 146/64; TEMP 99.1; O2SAT 95
[2023-09-04 06:00] VITALS: BP 165/77; TEMP 99.1; O2SAT 94
[2023-09-04] MEDS: ALENDRONATE 35MG TABLET PO SCH (06:35)
[2023-09-04] MEDS: HEPARIN SOD (PORCINE) 5000UNITS/ML 1ML VIAL/SYRINGE SC SCH (08:30)
[2023-09-04 14:00] VITALS: BP 174/79; TEMP 98.8; O2SAT 95
[2023-09-04 20:02] VITALS: BP 142/65; TEMP 98.8; O2SAT 94
[2023-09-05 06:00] VITALS: BP 164/72; TEMP 98.8; O2SAT 93
[2023-09-05 07:06] LABS: BASO % 0.2 % (0.0-1.0); EOS % 0.4 % (0.0-3.0); HEMATOCRIT 33.9 % (36.0-47.0); HEMOGLOBIN 10.7 g/dl (12.0-15.5); LYMPH # 1.2 10^3/uL (1.5-5.0); LYMPH % 12.8 % (24.0-44.0); MEAN CORPUSCULAR HEMOGLOBIN 29.2 pg (27.0-33.0); MEAN CORPUSCULAR HGB CONC 31.6 g/dl (32.0-36.5); MEAN CORPUSCULAR VOLUME 92.6 fl (80.0-96.0); MONO % 10.5 % (2.0-8.0); NEUTROPHILS # 6.9 10^3/uL (1.5-8.5); NEUTROPHILS % 74.7 % (36.0-66.0); PLATELET COUNT, AUTOMATED 431 10^3/uL (150-450); RED BLOOD COUNT 3.66 10^6/uL (4.00-5.40); WHITE BLOOD COUNT 9.3 10^3/uL (4.0-10.0)
[2023-09-05] MEDS: predniSONE 20 MG TAB PO SCH (08:13)
[2023-09-05 14:00] VITALS: BP 116/61; TEMP 98.8; O2SAT 94
[2023-09-05] MEDS: ROSUVASTATIN 10 MG TAB (CRESTOR) PO SCH (20:15)
[2023-09-05 20:16] VITALS: BP 112/55
[2023-09-05 20:21] VITALS: BP 112/55; TEMP 98.2; O2SAT 95
[2023-09-06] MEDS: ALBUTEROL 90 MCG/ACT 8GM HFA INHALER INH PRN (00:04)
[2023-09-06] MEDS ORDERED: CRES10TA PO (09:35)
[2023-09-06] MEDS ORDERED: PRED20TA PO (09:35)
[2023-09-06] MEDS ORDERED: ITRACONAZOLE 100 MG CAP (SPORANOX) PO SCH (21:00)
[2023-09-06] MEDS ORDERED: ATORVASTATIN 20 MG TAB PO SCH (21:00)
== END 2023-09-06 15:06 | disposition home or self-care (01) ==
LOC: EDBD 08:19 → M ED 08:19 → M ED INP 15:20 → M MSPAV 17:05
PROVIDERS: ADMIT Student in an Organized Health Care Education/Training Program; ATTEND Student in an Organized Health Care Education/Training Program
DX: J44.1 Chronic obstructive pulmonary disease with (acute) exacerbation (principal); B39.2 Pulmonary histoplasmosis capsulati, unspecified; R10.9 Unspecified abdominal pain; K82.8 Other specified diseases of gallbladder; I25.10 Atherosclerotic heart disease of native coronary artery without angina pectoris; M81.0 Age-related osteoporosis without current pathological fracture; I10 Essential (primary) hypertension; K21.9 Gastro-esophageal reflux disease without esophagitis; E03.9 Hypothyroidism, unspecified; I82.B22 Chronic embolism and thrombosis of left subclavian vein; Z79.82 Long term (current) use of aspirin; Z79.899 Other long term (current) drug therapy; Z88.0 Allergy status to penicillin; Z88.8 Allergy status to other drugs, medicaments and biological substances
CPT/HCPCS: 36415; 71045; 76705; 80048; 80076; 82550; 82553; 82803; 83735; 84145; 84484; 85025; 85027; 86140; 87070; 87077; 87102; 87205; 87486; 87581; 87633; 87798; 93005; 93041; 94640; 94760; 96365; 96366; 96372; 96375; 96376; 97161; 99285; G0378; J0456; J1956; J2405; J2919; J7512

== ENCOUNTER → 2023-10-05 | Outpatient (CLI) | payer OTHER ==
[~2023-10-05] MED LIST changes: +CRES10TA PO; +NITR0.2D5 TOP; +PRED20TA PO; +PRED5PAK PO; +SPOR1CAP PO; +VITA500045 PO
[2023-10-05 15:40] LABS: ALKALINE PHOSPHATASE 97 U/L (46-116); ALT/SGPT 18 U/L (7.0-40); AST/SGOT 13 U/L (<34); BILIRUBIN,DIRECT 0.2 MG/DL (<0.4); BILIRUBIN,TOTAL 0.6 MG/DL (0.3-1.2); BLOOD UREA NITROGEN 16 MG/DL (9-23); CALCIUM LEVEL 8.8 MG/DL (8.3-10.6); CARBON DIOXIDE LEVEL 26 MMOL/L (20-31); CHLORIDE LEVEL 109 MMOL/L (98-107); GLOMERULAR FILTRATION RATE > 60.0 (>45); GLUCOSE, FASTING 89 MG/DL (74-106); PHOSPHORUS LEVEL 3.6 MG/DL (2.4-5.1); POTASSIUM SERUM 4.5 MMOL/L (3.5-5.1); SODIUM LEVEL 141 MMOL/L (136-145); TOTAL PROTEIN 5.9 G/DL (5.7-8.2)
== END ==
LOC: M LAB 14:21
PROVIDERS: ATTEND Nurse Practitioner Family
DX: B39.9 Histoplasmosis, unspecified (principal)

== ENCOUNTER → 2023-10-17 | Outpatient (CLI) | payer OTHER, MEDICAID ==
[2023-10-17 13:26] LABS: BASO % 0.3 % (0.0-1.0); EOS % 0.1 % (0.0-3.0); HEMATOCRIT 37.7 % (36.0-47.0); HEMOGLOBIN 11.4 g/dl (12.0-15.5); LYMPH % 12.2 % (24.0-44.0); MEAN CORPUSCULAR HEMOGLOBIN 27.3 pg (27.0-33.0); MEAN CORPUSCULAR HGB CONC 30.2 g/dl (32.0-36.5); MEAN CORPUSCULAR VOLUME 90.2 fl (80.0-96.0); MONO # 0.7 10^3/uL (0.0-0.8); MONO % 9.2 % (2.0-8.0); NEUTROPHILS # 6.1 10^3/uL (1.5-8.5); NEUTROPHILS % 77.4 % (36.0-66.0); PLATELET COUNT, AUTOMATED 299 10^3/uL (150-450); RED BLOOD COUNT 4.18 10^6/uL (4.00-5.40); WHITE BLOOD COUNT 7.9 10^3/uL (4.0-10.0)
[2023-10-17 13:27] LABS: C REACTIVE PROTEIN QUANTITATIV < 0.40 MG/DL (<1.0)
[2023-10-17 13:29] LABS: IMMUNOGLOBULIN G 773 MG/DL (650-1600)
[2023-10-17 13:56] LABS: ERYTHROCYTE SEDIMENTATION RATE 39 mm/hr (0-30)
== END ==
LOC: M PLALAB 09:54
PROVIDERS: ATTEND Internal Medicine Infectious Disease
DX: B39.1 Chronic pulmonary histoplasmosis capsulati (principal); D80.1 Nonfamilial hypogammaglobulinemia

== ENCOUNTER 2023-11-19 11:54 | Emergency (ER) | payer MEDICAID, OTHER ==
[~2023-11-19] VITALS: Ht 160 cm; Wt 61.4 kg
[2023-11-19 12:07] VITALS: TEMP 97.5
[2023-11-19] MEDS ORDERED: ISOVUE-370 76% 100ML VIAL As Ordered ONE (12:48)
[2023-11-19] MEDS: NS 500 ML IV ONE (13:05)
[2023-11-19 13:34] LABS: BASO % 0.1 % (0.0-1.0); HEMATOCRIT 40.1 % (36.0-47.0); HEMOGLOBIN 12.6 g/dl (12.0-15.5); LYMPH # 0.8 10^3/uL (1.5-5.0); LYMPH % 8.7 % (24.0-44.0); MEAN CORPUSCULAR HEMOGLOBIN 26.5 pg (27.0-33.0); MEAN CORPUSCULAR HGB CONC 31.4 g/dl (32.0-36.5); MEAN CORPUSCULAR VOLUME 84.2 fl (80.0-96.0); MONO % 10.7 % (2.0-8.0); NEUTROPHILS # 7.4 10^3/uL (1.5-8.5); NEUTROPHILS % 79.8 % (36.0-66.0); PLATELET COUNT, AUTOMATED 234 10^3/uL (150-450); RED BLOOD COUNT 4.76 10^6/uL (4.00-5.40); WHITE BLOOD COUNT 9.2 10^3/uL (4.0-10.0)
[2023-11-19 13:51] LABS: INR 0.97; PROTHROMBIN TIME 12.6 SECONDS (12.5-14.5)
[2023-11-19 14:31] LABS: CK-MB VALUE MASS 1.4 NG/ML (<3.6)
[2023-11-19 14:32] LABS: C REACTIVE PROTEIN QUANTITATIV < 0.40 MG/DL (<1.0)
[2023-11-19 14:34] LABS: CPK CREATINE PHOSPHOKINASE 50 U/L (34-145)
[2023-11-19 14:35] LABS: FREE T4 1.76 NG/DL (0.89-1.76)
[2023-11-19 14:36] LABS: THYROID STIMULATING HORMONE 1.486 uIU/ML (0.55-4.78)
[2023-11-19 14:40] LABS: ALBUMIN 2.9 G/DL (3.2-5.2); ALKALINE PHOSPHATASE 89 U/L (46-116); ALT/SGPT 12 U/L (7.0-40); AST/SGOT 9 U/L (<34); BILIRUBIN,DIRECT 0.2 MG/DL (<0.4); BILIRUBIN,TOTAL 0.7 MG/DL (0.3-1.2); BLOOD UREA NITROGEN 15 MG/DL (9-23); CALCIUM LEVEL 7.6 MG/DL (8.3-10.6); CARBON DIOXIDE LEVEL 29 MMOL/L (20-31); CHLORIDE LEVEL 106 MMOL/L (98-107); CREATININE FOR GFR 0.49 MG/DL (0.55-1.30); GLOMERULAR FILTRATION RATE > 60.0 (>45); GLUCOSE, FASTING 83 MG/DL (74-106); MAGNESIUM LEVEL 2.2 MG/DL (1.8-2.4); POTASSIUM SERUM 3.2 MMOL/L (3.5-5.1); SODIUM LEVEL 142 MMOL/L (136-145); TOTAL PROTEIN 5.5 G/DL (5.7-8.2)
[2023-11-19] MEDS: POTASSIUM CHLORIDE 10MEQ SR TABLET PO ONE (15:15)
[2023-11-19] MEDS ORDERED: SPOR1CAP PO (17:55)
[2023-11-19] MEDS ORDERED: POTA10CA70 PO (17:55)
[2023-11-19] MEDS ORDERED: FURO40TA2 PO (17:55)
[2023-11-19] MEDS ORDERED: ROSU10TA61 PO (17:55)
[2023-11-19] MEDS ORDERED: IPRA0.00 INH (17:59)
[2023-11-19] MEDS ORDERED: SENN1TAB85 PO (17:59)
[2023-11-19] MEDS ORDERED: ACID1TAB PO (18:00)
[2023-11-19] MEDS ORDERED: HOME MED LIST COMPLETE! XX SCH (18:00)
[2023-11-19] MEDS: VALSARTAN 80 MG TAB (DIOVAN) PO ONE (22:26)
[2023-11-19 22:30] VITALS: BP 192/86; O2SAT 96
== END 2023-11-19 22:53 | disposition short-term general hospital (02) ==
LOC: M ED 11:54 → EDBD 11:54 → M ED 22:53
DX: M48.061 Spinal stenosis, lumbar region without neurogenic claudication (principal); M99.63 Osseous and subluxation stenosis of intervertebral foramina of lumbar region; M51.26 Other intervertebral disc displacement, lumbar region; M43.16 Spondylolisthesis, lumbar region; G95.81 Conus medullaris syndrome; M46.96 Unspecified inflammatory spondylopathy, lumbar region; M46.97 Unspecified inflammatory spondylopathy, lumbosacral region; I49.1 Atrial premature depolarization; J44.9 Chronic obstructive pulmonary disease, unspecified; F17.200 Nicotine dependence, unspecified, uncomplicated; E03.9 Hypothyroidism, unspecified; Z86.79 Personal history of other diseases of the circulatory system; Z88.8 Allergy status to other drugs, medicaments and biological substances; Z79.01 Long term (current) use of anticoagulants; Z79.52 Long term (current) use of systemic steroids; Z79.899 Other long term (current) drug therapy; Z79.82 Long term (current) use of aspirin
CPT/HCPCS: 70450; 70496; 70498; 70551; 71045; 72131; 72148; 80047; 80048; 80076; 82550; 82553; 83735; 84439; 84443; 84484; 85025; 85610; 85730; 86140; 93005; 93041; 94760; 96360; 96361; 99285; Q9967

== ENCOUNTER 2023-12-11 12:23 | Emergency (ER) | payer MEDICAID, OTHER ==
[~2023-12-11] VITALS: Ht 160 cm; Wt 62.9 kg
[~2023-12-11 12:23] MED LIST changes: +ACID1TAB PO; +FURO40TA2 PO; +POTA10CA70 PO; +ROSU10TA61 PO
[2023-12-11 12:59] LABS: BASO % 0.2 % (0.0-1.0); EOS % 0.2 % (0.0-3.0); HEMATOCRIT 36.7 % (36.0-47.0); HEMOGLOBIN 11.7 g/dl (12.0-15.5); LYMPH # 1.2 10^3/uL (1.5-5.0); LYMPH % 12.5 % (24.0-44.0); MEAN CORPUSCULAR HEMOGLOBIN 27.1 pg (27.0-33.0); MEAN CORPUSCULAR HGB CONC 31.9 g/dl (32.0-36.5); MEAN CORPUSCULAR VOLUME 85.2 fl (80.0-96.0); MONO % 9.9 % (2.0-8.0); NEUTROPHILS # 7.3 10^3/uL (1.5-8.5); PLATELET COUNT, AUTOMATED 316 10^3/uL (150-450); RED BLOOD COUNT 4.31 10^6/uL (4.00-5.40); WHITE BLOOD COUNT 9.7 10^3/uL (4.0-10.0)
[2023-12-11 13:15] LABS: INR 0.94; PARTIAL THROMBOPLASTIN TIME 21.8 SECONDS (24.8-34.2); PROTHROMBIN TIME 12.3 SECONDS (12.5-14.5)
[2023-12-11 13:33] LABS: LIPASE 18 U/L (12-53)
[2023-12-11 13:35] LABS: ALBUMIN 2.7 G/DL (3.2-5.2); ALKALINE PHOSPHATASE 100 U/L (46-116); ALT/SGPT 14 U/L (7.0-40); AST/SGOT 11 U/L (<34); BILIRUBIN,DIRECT 0.3 MG/DL (<0.4); BILIRUBIN,TOTAL 0.9 MG/DL (0.3-1.2); BLOOD UREA NITROGEN 17 MG/DL (9-23); CALCIUM LEVEL 7.9 MG/DL (8.3-10.6); CARBON DIOXIDE LEVEL 29 MMOL/L (20-31); CHLORIDE LEVEL 104 MMOL/L (98-107); CK-MB VALUE MASS < 1.0 NG/ML (<3.6); CPK CREATINE PHOSPHOKINASE 37 U/L (34-145); GLOMERULAR FILTRATION RATE > 60.0 (>45); GLUCOSE, FASTING 95 MG/DL (74-106); POTASSIUM SERUM 3.1 MMOL/L (3.5-5.1); SODIUM LEVEL 138 MMOL/L (136-145); TOTAL PROTEIN 5.5 G/DL (5.7-8.2)
[2023-12-11 13:37] LABS: FREE T4 1.95 NG/DL (0.89-1.76); THYROID STIMULATING HORMONE 0.401 uIU/ML (0.55-4.78)
[2023-12-11 14:21] LABS: CK-MB VALUE MASS < 1.0 NG/ML (<3.6)
[2023-12-11 14:22] LABS: CPK CREATINE PHOSPHOKINASE 36 U/L (34-145); MB/CK RELATIVE INDEX 2.77 (< OR =4)
[2023-12-11] MEDS ORDERED: ISOVUE-370 76% 100ML VIAL As Ordered ONE (14:38)
[2023-12-11 15:02] VITALS: BP 155/74
[2023-12-11] MEDS: NITROGLYCERIN 0.4MG SUBL TABLET SL PRN (15:02)
[2023-12-11 16:24] LABS: CK-MB VALUE MASS < 1.0 NG/ML (<3.6)
[2023-12-11 16:56] LABS: CPK CREATINE PHOSPHOKINASE 27 U/L (34-145)
[2023-12-11] MEDS: HEPARIN DRIP 25,000 UNITS in IV 1 EA IV SCH (18:20)
[2023-12-11] MEDS: HEPARIN SOD (PORCINE) 5000UNITS/ML 1ML VIAL/SYRINGE IV ONE (18:21)
[2023-12-11 21:15] VITALS: BP 163/72; TEMP 98.1; O2SAT 96
== END 2023-12-11 21:32 | disposition short-term general hospital (02) ==
LOC: M ED 12:23 → EDBD 12:23 → M ED 21:32
DX: I21.4 Non-ST elevation (NSTEMI) myocardial infarction (principal); I45.10 Unspecified right bundle-branch block; I49.1 Atrial premature depolarization; I10 Essential (primary) hypertension; E78.5 Hyperlipidemia, unspecified; J44.9 Chronic obstructive pulmonary disease, unspecified; I25.2 Old myocardial infarction; F17.200 Nicotine dependence, unspecified, uncomplicated; Z88.8 Allergy status to other drugs, medicaments and biological substances; Z79.52 Long term (current) use of systemic steroids; Z79.899 Other long term (current) drug therapy
CPT/HCPCS: 71045; 71275; 80048; 80076; 82550; 82553; 83690; 83880; 84439; 84443; 84484; 85025; 85610; 85730; 93005; 93041; 94760; 96365; 96366; 99285; Q9967

== ENCOUNTER → 2024-01-30 | Outpatient (CLI) | payer OTHER ==
[2024-01-30 10:56] LABS: BASO % 0.2 % (0.0-1.0); EOS # 0.2 10^3/uL (0.0-0.5); EOS % 1.3 % (0.0-3.0); HEMATOCRIT 40.1 % (36.0-47.0); HEMOGLOBIN 12.2 g/dl (12.0-15.5); LYMPH # 1.1 10^3/uL (1.5-5.0); LYMPH % 9.7 % (24.0-44.0); MEAN CORPUSCULAR HEMOGLOBIN 26.9 pg (27.0-33.0); MEAN CORPUSCULAR HGB CONC 30.4 g/dl (32.0-36.5); MEAN CORPUSCULAR VOLUME 88.5 fl (80.0-96.0); MONO # 0.8 10^3/uL (0.0-0.8); MONO % 6.6 % (2.0-8.0); NEUTROPHILS # 9.3 10^3/uL (1.5-8.5); PLATELET COUNT, AUTOMATED 258 10^3/uL (150-450); RED BLOOD COUNT 4.53 10^6/uL (4.00-5.40); WHITE BLOOD COUNT 11.4 10^3/uL (4.0-10.0)
[2024-01-30 11:29] LABS: ALKALINE PHOSPHATASE 105 U/L (46-116); ALT/SGPT 16 U/L (7.0-40); AST/SGOT 13 U/L (<34); BILIRUBIN,TOTAL 0.7 MG/DL (0.3-1.2); BLOOD UREA NITROGEN 23 MG/DL (9-23); CARBON DIOXIDE LEVEL 28 MMOL/L (20-31); CHLORIDE LEVEL 107 MMOL/L (98-107); CREATININE FOR GFR 0.54 MG/DL (0.55-1.30); GLOMERULAR FILTRATION RATE > 60.0 (>39); GLUCOSE, FASTING 99 MG/DL (74-106); SODIUM LEVEL 140 MMOL/L (136-145)
[2024-01-31 09:31] LABS: CHOLESTEROL LEVEL 173 MG/DL (<200); CHOLESTEROL RISK RATIO 1.99 (<5); HDL CHOLESTEROL 86.8 MG/DL (>40); LDL CHOLESTEROL 69.6 MG/DL (<100); NON-HDL-C 86.2 MG/DL; TRIGLYCERIDES LEVEL 83 MG/DL (<150)
[2024-01-31 09:34] LABS: FREE T4 1.57 NG/DL (0.89-1.76); THYROID STIMULATING HORMONE 0.471 uIU/ML (0.55-4.78)
[2024-01-31 10:16] LABS: HEMOGLOBIN A1c 5.3 % (4.0-6.0)
== END ==
LOC: M LAB 09:38
PROVIDERS: ATTEND Specialist
DX: I74.9 Embolism and thrombosis of unspecified artery (principal); Z79.899 Other long term (current) drug therapy

== ENCOUNTER → 2024-02-13 | Outpatient (CLI) | payer MEDICAID, OTHER ==
[2024-02-13 13:35] LABS: BASO % 0.3 % (0.0-1.0); EOS % 0.3 % (0.0-3.0); HEMATOCRIT 37.7 % (36.0-47.0); HEMOGLOBIN 11.7 g/dl (12.0-15.5); LYMPH # 1.2 10^3/uL (1.5-5.0); LYMPH % 11.5 % (24.0-44.0); MEAN CORPUSCULAR HEMOGLOBIN 27.7 pg (27.0-33.0); MEAN CORPUSCULAR VOLUME 89.1 fl (80.0-96.0); MONO # 0.9 10^3/uL (0.0-0.8); NEUTROPHILS # 8.3 10^3/uL (1.5-8.5); NEUTROPHILS % 77.5 % (36.0-66.0); PLATELET COUNT, AUTOMATED 298 10^3/uL (150-450); RED BLOOD COUNT 4.23 10^6/uL (4.00-5.40); WHITE BLOOD COUNT 10.7 10^3/uL (4.0-10.0)
[2024-02-13 13:45] LABS: ERYTHROCYTE SEDIMENTATION RATE 55 mm/hr (0-30)
[2024-02-13 14:02] LABS: ALBUMIN 2.8 G/DL (3.2-5.2); ALKALINE PHOSPHATASE 103 U/L (35-104); ALT/SGPT 24 U/L (7.0-40); AST/SGOT 13 U/L (<34); BILIRUBIN,TOTAL 0.6 MG/DL (0.3-1.2); BLOOD UREA NITROGEN 19 MG/DL (9-23); CALCIUM LEVEL 8.7 MG/DL (8.3-10.6); CARBON DIOXIDE LEVEL 30 MMOL/L (20-31); CHLORIDE LEVEL 106 MMOL/L (98-107); CREATININE FOR GFR 0.58 MG/DL (0.55-1.30); GLOMERULAR FILTRATION RATE > 60.0 (>39); GLUCOSE, FASTING 78 MG/DL (74-106); POTASSIUM SERUM 4.1 MMOL/L (3.5-5.1); SODIUM LEVEL 140 MMOL/L (136-145); TOTAL PROTEIN 5.7 G/DL (5.7-8.2)
== END ==
LOC: M PLALAB 09:33
PROVIDERS: ATTEND Internal Medicine Infectious Disease
DX: B39.1 Chronic pulmonary histoplasmosis capsulati (principal)

== ENCOUNTER → 2024-02-13 | Outpatient (CLI) | payer OTHER | LOC: M RAD 10:59 | PROVIDERS: ATTEND Physician Assistant | DX: Z48.812 Encounter for surgical aftercare following surgery on the circulatory system (principal); Z98.890 Other specified postprocedural states ==

== ENCOUNTER 2024-02-26 20:25 | Inpatient (IN) | payer OTHER ==
[~2024-02-26] VITALS: Ht 160 cm; Wt 57.2 kg
[2024-02-26] MEDS ORDERED: NITROGLYCERIN 0.4MG SUBL TABLET SL PRN (20:50)
[2024-02-26 20:52] LABS: BASO % 0.1 % (0.0-1.0); HEMATOCRIT 38.4 % (36.0-47.0); HEMOGLOBIN 12.4 g/dl (12.0-15.5); LYMPH # 0.3 10^3/uL (1.5-5.0); LYMPH % 2.4 % (24.0-44.0); MEAN CORPUSCULAR HGB CONC 32.3 g/dl (32.0-36.5); MEAN CORPUSCULAR VOLUME 86.7 fl (80.0-96.0); MONO # 0.5 10^3/uL (0.0-0.8); MONO % 3.7 % (2.0-8.0); NEUTROPHILS # 12.6 10^3/uL (1.5-8.5); PLATELET COUNT, AUTOMATED 215 10^3/uL (150-450); RED BLOOD COUNT 4.43 10^6/uL (4.00-5.40)
[2024-02-26 21:16] LABS: LIPASE 18 U/L (12-53)
[2024-02-26 21:18] LABS: ALBUMIN 2.5 G/DL (3.2-5.2); ALKALINE PHOSPHATASE 73 U/L (35-104); ALT/SGPT 35 U/L (7.0-40); AST/SGOT 11 U/L (<34); BILIRUBIN,DIRECT 0.2 MG/DL (<0.4); BILIRUBIN,TOTAL 0.8 MG/DL (0.3-1.2); BLOOD UREA NITROGEN 20 MG/DL (9-23); CALCIUM LEVEL 7.8 MG/DL (8.3-10.6); CARBON DIOXIDE LEVEL 28 MMOL/L (20-31); CHLORIDE LEVEL 105 MMOL/L (98-107); CK-MB VALUE MASS 1.4 NG/ML (<3.6); CPK CREATINE PHOSPHOKINASE 40 U/L (34-145); CREATININE FOR GFR 0.53 MG/DL (0.55-1.30); GLOMERULAR FILTRATION RATE > 60.0 (>39); GLUCOSE, FASTING 234 MG/DL (74-106); POTASSIUM SERUM 3.9 MMOL/L (3.5-5.1); SODIUM LEVEL 139 MMOL/L (136-145)
[2024-02-26 21:22] LABS: FREE T4 2.05 NG/DL (0.89-1.76); THYROID STIMULATING HORMONE 0.428 uIU/ML (0.55-4.78)
[2024-02-26] MEDS ORDERED: GABA-1171 PO (21:28)
[2024-02-26] MEDS ORDERED: ERGO500029 PO (21:28)
[2024-02-26] MEDS ORDERED: ISOS1TAB35 PO (21:28)
[2024-02-26] MEDS ORDERED: ISOVUE-370 76% 100ML VIAL As Ordered ONE (21:44)
[2024-02-26 22:21] LABS: INR 0.96
[2024-02-26 22:24] LABS: CK-MB VALUE MASS 1.7 NG/ML (<3.6)
[2024-02-26 22:28] LABS: MB/CK RELATIVE INDEX 5.15 (< OR =4)
[2024-02-27] VITALS (8 sets, daily range): BP systolic 95–178; BP diastolic 53–100; TEMP 97.3–98; O2SAT 90–93
[2024-02-27] MEDS: METOPROLOL SUCC *XL* 25MG TAB (TopROL *XL*) PO ONE (00:30)
[2024-02-27] MEDS ORDERED: VALS1TAB67 PO (00:51)
[2024-02-27] MEDS ORDERED: HOME MED LIST COMPLETE! XX SCH (01:00)
[2024-02-27] MEDS ORDERED: MOM 30ML SUSPENSION UDC PO PRN (02:10)
[2024-02-27] MEDS ORDERED: LEVALBUTEROL 1.25MG 0.5ML CONCENTRATE NEB INH PRN (02:10)
[2024-02-27] MEDS ORDERED: SENOKOT S TAB PO PRN (02:10)
[2024-02-27] MEDS ORDERED: MAALOX 30 ML SUSP *UDC PO PRN (02:10)
[2024-02-27] MEDS: IPRATROPIUM 0.5MG/ALBUTEROL 2.5MG INH SOL UD 3ML (DUONEB) NEB PRN (03:43)
[2024-02-27 04:23] LABS: VENOUS BASE EXCESS 5.5 (-2.0-2.0); VENOUS HCO3 28.7 MMOL/L (23.0-27.0); VENOUS O2 SATURATION 96.7 % (60.0-80.0); VENOUS PARTIAL PRESSURE CO2 37.1 mmHg (38.0-50.0); VENOUS PARTIAL PRESSURE O2 87.7 mmHg (30.0-50.0); VENOUS PH 7.507 UNITS (7.330-7.430); VENOUS STANDARD HCO3 29.4 MMOL/L; VENOUS TOTAL CO2 29.9 MMOL/L (24.0-28.0)
[2024-02-27] MEDS: LEVOTHYROXINE 125MCG TABLET (0.125MG) PO SCH (06:06)
[2024-02-27] MEDS: ADVAIR HFA 230/21MCG INHALER INH SCH (07:30)
[2024-02-27] MEDS: ENOXAPARIN 40MG/0.4ML SYRINGE (J1650 PER 10MG) SC SCH (09:00)
[2024-02-27] MEDS: ITRACONAZOLE 100 MG CAP (SPORANOX) PO SCH (09:00)
[2024-02-27] MEDS: NITROGLYCERIN 0.2 MG/HR PATCH TOP SCH (09:41)
[2024-02-27] MEDS: METOPROLOL SUCC *XL* 25MG TAB (TopROL *XL*) PO SCH (09:41)
[2024-02-27] MEDS: VALSARTAN 80 MG TAB (DIOVAN) PO SCH (09:41)
[2024-02-27] MEDS: LACTOBACILLUS ACIDOPHILUS CAP (BACID) PO SCH (09:41)
[2024-02-27] MEDS: GABAPENTIN 100 MG CAP PO SCH (09:41)
[2024-02-27] MEDS: ISOSORBIDE MON. (IMDUR) 30MG XR TAB PO SCH (09:41)
[2024-02-27] MEDS: ASPIRIN 81MG CHEW TABLET PO SCH (09:41)
[2024-02-27] MEDS: FUROSEMIDE 40 MG TAB PO SCH (09:42)
[2024-02-27] MEDS: POTASSIUM CHLORIDE 10MEQ SR TABLET PO SCH (09:42)
[2024-02-27] MEDS: predniSONE 10MG TAB PO SCH (09:42)
[2024-02-27] MEDS: PANTOPRAZOLE 40MG TAB (PROTONIX) PO SCH (09:42)
[2024-02-27] MEDS: DOCUSATE SODIUM 100MG CAPSULE PO SCH (09:42)
[2024-02-27] MEDS: ROSUVASTATIN 10 MG TAB (CRESTOR) PO SCH (09:42)
[2024-02-27] MEDS: CLOPIDOGREL 75 MG TAB PO SCH (09:42)
[2024-02-27] MEDS ORDERED: GLUCOSE 4 GM CHEW PO PRN (10:25)
[2024-02-27] MEDS ORDERED: DEXTROSE 50% 50ML SYRINGE IV PRN (10:25)
[2024-02-27] MEDS ORDERED: GLUCAGON INJ 1MG VIAL SC PRN (10:25)
[2024-02-27] MEDS: amLODIPine 5 MG TAB PO SCH (12:04)
[2024-02-27] MEDS: INSULIN LISPRO (NovoLOG) PER UNIT SC SCH (20:57)
[2024-02-28] VITALS (7 sets, daily range): BP systolic 98–160; BP diastolic 56–82; TEMP 97.1–98.2; O2SAT 88–92
[2024-02-28 06:04] LABS: HEMATOCRIT 40.8 % (36.0-47.0); HEMOGLOBIN 12.8 g/dl (12.0-15.5); MEAN CORPUSCULAR HEMOGLOBIN 27.9 pg (27.0-33.0); MEAN CORPUSCULAR HGB CONC 31.4 g/dl (32.0-36.5); MEAN CORPUSCULAR VOLUME 88.9 fl (80.0-96.0); PLATELET COUNT, AUTOMATED 183 10^3/uL (150-450); RED BLOOD COUNT 4.59 10^6/uL (4.00-5.40); WHITE BLOOD COUNT 13.1 10^3/uL (4.0-10.0)
[2024-02-28 06:37] LABS: PROCALCITONIN 0.07 ng/ml
[2024-02-28 06:39] LABS: ALBUMIN 2.6 G/DL (3.2-5.2); ALKALINE PHOSPHATASE 83 U/L (35-104); ALT/SGPT 29 U/L (7.0-40); AST/SGOT 12 U/L (<34); BILIRUBIN,TOTAL 0.8 MG/DL (0.3-1.2); BLOOD UREA NITROGEN 27 MG/DL (9-23); CALCIUM LEVEL 8.1 MG/DL (8.3-10.6); CARBON DIOXIDE LEVEL 30 MMOL/L (20-31); CHLORIDE LEVEL 107 MMOL/L (98-107); CREATININE FOR GFR 0.48 MG/DL (0.55-1.30); GLOMERULAR FILTRATION RATE > 60.0 (>39); GLUCOSE, FASTING 79 MG/DL (74-106); MAGNESIUM LEVEL 2.2 MG/DL (1.8-2.4); POTASSIUM SERUM 3.2 MMOL/L (3.5-5.1); SODIUM LEVEL 143 MMOL/L (136-145); TOTAL PROTEIN 5.4 G/DL (5.7-8.2)
[2024-02-28] MEDS: POTASSIUM CHLORIDE 10MEQ SR TABLET PO SCH (08:56)
[2024-02-28] MEDS: MECLIZINE 12.5 MG TAB PO PRN (10:59)
[2024-02-29] VITALS (10 sets, daily range): BP systolic 80–127; BP diastolic 50–62; TEMP 97.3–98.4; O2SAT 90–94
[2024-02-29 11:32] LABS: HEMATOCRIT 43.3 % (36.0-47.0); HEMOGLOBIN 13.6 g/dl (12.0-15.5); MEAN CORPUSCULAR HEMOGLOBIN 28.6 pg (27.0-33.0); MEAN CORPUSCULAR HGB CONC 31.4 g/dl (32.0-36.5); PLATELET COUNT, AUTOMATED 168 10^3/uL (150-450); RED BLOOD COUNT 4.76 10^6/uL (4.00-5.40)
[2024-02-29 12:00] LABS: BLOOD UREA NITROGEN 29 MG/DL (9-23); CALCIUM LEVEL 8.7 MG/DL (8.3-10.6); CARBON DIOXIDE LEVEL 31 MMOL/L (20-31); CHLORIDE LEVEL 108 MMOL/L (98-107); CREATININE FOR GFR 0.53 MG/DL (0.55-1.30); GLOMERULAR FILTRATION RATE > 60.0 (>39); GLUCOSE, FASTING 136 MG/DL (74-106); POTASSIUM SERUM 3.9 MMOL/L (3.5-5.1); SODIUM LEVEL 143 MMOL/L (136-145)
[2024-02-29] MEDS: IPRATROPIUM 0.5MG/ALBUTEROL 2.5MG INH SOL UD 3ML (DUONEB) NEB SCH (16:00)
[2024-02-29] MEDS: LR 1,000 ML IV ONE ×2 (16:36→22:19)
[2024-02-29] MEDS: ACETAMINOPHEN 325 MG TAB PO PRN (16:42)
[2024-02-29] MEDS: predniSONE 20 MG TAB PO SCH (18:14)
[2024-02-29] MEDS: cefTRIAXone SOD 1 GM in DEXTROSE 5% (D5W) ADV/MINI-BAG 50 ML IV SCH (23:31)
[2024-03-01] VITALS (8 sets, daily range): BP systolic 103–138; BP diastolic 51–91; TEMP 97.1–98.5; O2SAT 91–100
[2024-03-01 07:43] LABS: MEAN CORPUSCULAR HEMOGLOBIN 28.8 pg (27.0-33.0); MEAN CORPUSCULAR HGB CONC 31.4 g/dl (32.0-36.5); MEAN CORPUSCULAR VOLUME 91.6 fl (80.0-96.0); PLATELET COUNT, AUTOMATED 156 10^3/uL (150-450); RED BLOOD COUNT 3.93 10^6/uL (4.00-5.40); WHITE BLOOD COUNT 10.7 10^3/uL (4.0-10.0)
[2024-03-01 07:52] LABS: BLOOD UREA NITROGEN 24 MG/DL (9-23); CALCIUM LEVEL 8.5 MG/DL (8.3-10.6); CARBON DIOXIDE LEVEL 28 MMOL/L (20-31); CHLORIDE LEVEL 109 MMOL/L (98-107); CREATININE FOR GFR 0.47 MG/DL (0.55-1.30); GLOMERULAR FILTRATION RATE > 60.0 (>39); GLUCOSE, FASTING 157 MG/DL (74-106); HEMOGLOBIN 11.3 g/dl (12.0-15.5); POTASSIUM SERUM 4.3 MMOL/L (3.5-5.1); SODIUM LEVEL 142 MMOL/L (136-145)
[2024-03-01] MEDS: AZITHROMYCIN 250MG TABLET PO ONE (08:28)
[2024-03-01] MEDS: SIMETHICONE 80MG CHEW TAB PO SCH (11:51)
[2024-03-02 04:36] VITALS: BP 138/68; TEMP 98; O2SAT 93
[2024-03-02 06:41] LABS: HEMATOCRIT 34.2 % (36.0-47.0); HEMOGLOBIN 10.9 g/dl (12.0-15.5); MEAN CORPUSCULAR HEMOGLOBIN 28.4 pg (27.0-33.0); MEAN CORPUSCULAR HGB CONC 31.9 g/dl (32.0-36.5); MEAN CORPUSCULAR VOLUME 89.1 fl (80.0-96.0); PLATELET COUNT, AUTOMATED 147 10^3/uL (150-450); RED BLOOD COUNT 3.84 10^6/uL (4.00-5.40)
[2024-03-02 07:03] LABS: BLOOD UREA NITROGEN 22 MG/DL (9-23); CALCIUM LEVEL 8.3 MG/DL (8.3-10.6); CARBON DIOXIDE LEVEL 27 MMOL/L (20-31); CHLORIDE LEVEL 110 MMOL/L (98-107); CREATININE FOR GFR 0.45 MG/DL (0.55-1.30); GLOMERULAR FILTRATION RATE > 60.0 (>39); GLUCOSE, FASTING 87 MG/DL (74-106); POTASSIUM SERUM 3.5 MMOL/L (3.5-5.1); SODIUM LEVEL 144 MMOL/L (136-145)
[2024-03-02 08:07] VITALS: BP 149/65; TEMP 98.2; O2SAT 93
[2024-03-02 08:35] LABS: ERYTHROCYTE SEDIMENTATION RATE 64 mm/hr (0-30)
[2024-03-02 08:37] LABS: PROCALCITONIN 0.04 ng/ml
[2024-03-02] MEDS: AZITHROMYCIN 250MG TABLET PO SCH (08:39)
[2024-03-02] MEDS: MIRALAX *UNIT DOSE* 17GM PACKET PO SCH (09:32)
[2024-03-02 12:00] VITALS: BP 135/60; TEMP 98.6; O2SAT 94
[2024-03-02 16:08] VITALS: BP 118/55; TEMP 98.2; O2SAT 92
[2024-03-02] MEDS: methylPREDNISolone 125MG 2ML VIAL IV SCH (17:02)
[2024-03-02 20:06] VITALS: BP 120/56; TEMP 98.3; O2SAT 96
[2024-03-03 00:08] VITALS: BP 121/64; TEMP 98.6; O2SAT 94
[2024-03-03 05:01] VITALS: BP 152/78; TEMP 97.6; O2SAT 94
[2024-03-03 06:18] LABS: HEMATOCRIT 32.9 % (36.0-47.0); HEMOGLOBIN 10.3 g/dl (12.0-15.5); MEAN CORPUSCULAR HEMOGLOBIN 28.2 pg (27.0-33.0); MEAN CORPUSCULAR HGB CONC 31.3 g/dl (32.0-36.5); MEAN CORPUSCULAR VOLUME 90.1 fl (80.0-96.0); PLATELET COUNT, AUTOMATED 155 10^3/uL (150-450); RED BLOOD COUNT 3.65 10^6/uL (4.00-5.40); WHITE BLOOD COUNT 9.9 10^3/uL (4.0-10.0)
[2024-03-03 06:38] LABS: BLOOD UREA NITROGEN 24 MG/DL (9-23); CALCIUM LEVEL 8.2 MG/DL (8.3-10.6); CARBON DIOXIDE LEVEL 26 MMOL/L (20-31); CHLORIDE LEVEL 113 MMOL/L (98-107); CREATININE FOR GFR 0.43 MG/DL (0.55-1.30); GLOMERULAR FILTRATION RATE > 60.0 (>39); GLUCOSE, FASTING 170 MG/DL (74-106); POTASSIUM SERUM 3.7 MMOL/L (3.5-5.1); SODIUM LEVEL 146 MMOL/L (136-145)
[2024-03-03 07:37] VITALS: BP 160/82; TEMP 98.3; O2SAT 93
[2024-03-03 11:36] VITALS: BP 151/63; TEMP 98.6; O2SAT 94
[2024-03-03] MEDS: methylPREDNISolone 125MG 2ML VIAL IV SCH (12:44)
[2024-03-03] MEDS: FAMOTIDINE 20 MG TAB PO SCH (12:44)
[2024-03-03 15:51] VITALS: BP 142/63; TEMP 98.3; O2SAT 94
[2024-03-03 20:06] VITALS: BP 138/67; TEMP 97.5; O2SAT 96
[2024-03-04] VITALS (7 sets, daily range): BP systolic 129–174; BP diastolic 59–90; TEMP 96.9–97.8; O2SAT 93–99
[2024-03-04 06:41] LABS: HEMATOCRIT 33.9 % (36.0-47.0); HEMOGLOBIN 10.5 g/dl (12.0-15.5); MEAN CORPUSCULAR HEMOGLOBIN 27.9 pg (27.0-33.0); MEAN CORPUSCULAR VOLUME 89.9 fl (80.0-96.0); PLATELET COUNT, AUTOMATED 156 10^3/uL (150-450); RED BLOOD COUNT 3.77 10^6/uL (4.00-5.40); WHITE BLOOD COUNT 12.4 10^3/uL (4.0-10.0)
[2024-03-04 07:05] LABS: BLOOD UREA NITROGEN 23 MG/DL (9-23); CALCIUM LEVEL 8.4 MG/DL (8.3-10.6); CARBON DIOXIDE LEVEL 27 MMOL/L (20-31); CHLORIDE LEVEL 113 MMOL/L (98-107); CREATININE FOR GFR 0.48 MG/DL (0.55-1.30); GLOMERULAR FILTRATION RATE > 60.0 (>39); GLUCOSE, FASTING 161 MG/DL (74-106); POTASSIUM SERUM 3.9 MMOL/L (3.5-5.1); SODIUM LEVEL 146 MMOL/L (136-145)
[2024-03-04] MEDS: VALSARTAN 40MG TABLET (DIOVAN) PO SCH (10:05)
[2024-03-04] MEDS ORDERED: hydrALAZINE 20MG/ML 1ML VIAL IV PRN (14:05)
[2024-03-05 03:50] VITALS: BP 147/80; TEMP 98.2; O2SAT 96
[2024-03-05 07:36] VITALS: BP 160/80; TEMP 97.6; O2SAT 96
[2024-03-05 08:34] LABS: HEMATOCRIT 34.8 % (36.0-47.0); HEMOGLOBIN 10.8 g/dl (12.0-15.5); MEAN CORPUSCULAR HEMOGLOBIN 28.1 pg (27.0-33.0); MEAN CORPUSCULAR VOLUME 90.6 fl (80.0-96.0); PLATELET COUNT, AUTOMATED 167 10^3/uL (150-450); RED BLOOD COUNT 3.84 10^6/uL (4.00-5.40); WHITE BLOOD COUNT 11.8 10^3/uL (4.0-10.0)
[2024-03-05 08:57] LABS: BLOOD UREA NITROGEN 25 MG/DL (9-23); CALCIUM LEVEL 8.9 MG/DL (8.3-10.6); CARBON DIOXIDE LEVEL 30 MMOL/L (20-31); CHLORIDE LEVEL 110 MMOL/L (98-107); CREATININE FOR GFR 0.43 MG/DL (0.55-1.30); GLOMERULAR FILTRATION RATE > 60.0 (>39); GLUCOSE, FASTING 157 MG/DL (74-106); SODIUM LEVEL 146 MMOL/L (136-145)
[2024-03-05] MEDS: FUROSEMIDE 40 MG TAB PO SCH (10:27)
[2024-03-05 12:00] VITALS: BP 147/67; TEMP 98.5; O2SAT 98
[2024-03-05 16:00] VITALS: BP 156/75; TEMP 98.8; O2SAT 94
[2024-03-05 19:25] VITALS: BP 135/65; TEMP 98.3; O2SAT 96
[2024-03-05 23:49] VITALS: BP 151/70; TEMP 98.3; O2SAT 96
[2024-03-06 03:06] VITALS: BP 168/75; TEMP 98.3; O2SAT 99
[2024-03-06 07:54] VITALS: BP 168/76; TEMP 97.4; O2SAT 100
[2024-03-06 08:44] LABS: HEMATOCRIT 34.5 % (36.0-47.0); HEMOGLOBIN 10.7 g/dl (12.0-15.5); MEAN CORPUSCULAR HEMOGLOBIN 28.1 pg (27.0-33.0); MEAN CORPUSCULAR VOLUME 90.6 fl (80.0-96.0); PLATELET COUNT, AUTOMATED 163 10^3/uL (150-450); RED BLOOD COUNT 3.81 10^6/uL (4.00-5.40); WHITE BLOOD COUNT 9.5 10^3/uL (4.0-10.0)
[2024-03-06 09:15] LABS: BLOOD UREA NITROGEN 20 MG/DL (9-23); CALCIUM LEVEL 8.2 MG/DL (8.3-10.6); CARBON DIOXIDE LEVEL 28 MMOL/L (20-31); CHLORIDE LEVEL 109 MMOL/L (98-107); CREATININE FOR GFR 0.39 MG/DL (0.55-1.30); GLOMERULAR FILTRATION RATE > 60.0 (>39); GLUCOSE, FASTING 174 MG/DL (74-106); POTASSIUM SERUM 3.9 MMOL/L (3.5-5.1); SODIUM LEVEL 145 MMOL/L (136-145)
[2024-03-06 09:45] VITALS: BP 138/60
[2024-03-06] MEDS: predniSONE 20 MG TAB PO SCH (09:45)
[2024-03-06] MEDS: VALSARTAN 80 MG TAB (DIOVAN) PO SCH (09:45)
[2024-03-06 11:14] LABS: C REACTIVE PROTEIN QUANTITATIV < 0.40 MG/DL (<1.0)
[2024-03-06 11:28] VITALS: BP 151/67; TEMP 98.2; O2SAT 98
[2024-03-06] MEDS ORDERED: PRED10TA2 PO (11:28)
[2024-03-06] MEDS ORDERED: FAMO20TA PO (11:28)
[2024-03-06] MEDS: FUROSEMIDE 100MG/10ML VIAL IV ONE (12:15)
[2024-03-07] MEDS ORDERED: DALI1TAB2 PO (09:23)
[2024-03-07] MEDS ORDERED: LACT10SO94 PO (09:23)
[2024-03-07] MEDS ORDERED: PANT40TA29 PO (09:23)
[2024-03-07] MEDS ORDERED: AMLO1TAB25 PO (09:23)
[2024-03-07] MEDS ORDERED: PRED10TA2 PO (09:27)
[2024-03-08 01:57] LABS: HISTO GAL'MANNAN AG UR QNT < 0.2 ng/mL (<0.2)
== END 2024-03-06 14:59 | disposition home health service (06) | DRG 190 ==
LOC: M ED 20:25 → EDBD 20:25 → INTOOBSV 02-27 02:06 → M ED INP 02-27 02:06 → M PCU 02-27 04:21 → OBSVTOIN 03-01 11:01
PROVIDERS: ADMIT Student in an Organized Health Care Education/Training Program; ATTEND Internal Medicine Nephrology
DX: J44.1 Chronic obstructive pulmonary disease with (acute) exacerbation (principal); I50.33 Acute on chronic diastolic (congestive) heart failure; R07.9 Chest pain, unspecified; E78.5 Hyperlipidemia, unspecified; K21.9 Gastro-esophageal reflux disease without esophagitis; I11.0 Hypertensive heart disease with heart failure; B39.9 Histoplasmosis, unspecified; F17.200 Nicotine dependence, unspecified, uncomplicated; I25.10 Atherosclerotic heart disease of native coronary artery without angina pectoris; I25.2 Old myocardial infarction; Z79.52 Long term (current) use of systemic steroids; Z88.8 Allergy status to other drugs, medicaments and biological substances; Z79.82 Long term (current) use of aspirin; Z79.899 Other long term (current) drug therapy; Z95.2 Presence of prosthetic heart valve; M81.0 Age-related osteoporosis without current pathological fracture; H40.9 Unspecified glaucoma; Z79.01 Long term (current) use of anticoagulants; E89.0 Postprocedural hypothyroidism; R73.9 Hyperglycemia, unspecified; K59.00 Constipation, unspecified

== ENCOUNTER 2024-03-07 03:05 | Observation (INO) | payer OTHER ==
[~2024-03-07] VITALS: Ht 160 cm; Wt 58.6 kg
[~2024-03-07 03:05] MED LIST changes: +FAMO20TA PO; +GABA-1171 PO; +ISOS1TAB35 PO; +VALS1TAB67 PO
[2024-03-07 03:46] LABS: BASO % 0.3 % (0.0-1.0); HEMATOCRIT 35.2 % (36.0-47.0); LYMPH # 0.4 10^3/uL (1.5-5.0); MEAN CORPUSCULAR HEMOGLOBIN 28.3 pg (27.0-33.0); MEAN CORPUSCULAR HGB CONC 31.3 g/dl (32.0-36.5); MEAN CORPUSCULAR VOLUME 90.5 fl (80.0-96.0); MONO # 0.5 10^3/uL (0.0-0.8); MONO % 6.6 % (2.0-8.0); NEUTROPHILS # 6.2 10^3/uL (1.5-8.5); NEUTROPHILS % 83.6 % (36.0-66.0); PLATELET COUNT, AUTOMATED 204 10^3/uL (150-450); RED BLOOD COUNT 3.89 10^6/uL (4.00-5.40); WHITE BLOOD COUNT 7.4 10^3/uL (4.0-10.0)
[2024-03-07 03:59] LABS: BLOOD UREA NITROGEN 24 MG/DL (9-23); CALCIUM LEVEL 8.1 MG/DL (8.3-10.6); CARBON DIOXIDE LEVEL 32 MMOL/L (20-31); CHLORIDE LEVEL 106 MMOL/L (98-107); CK-MB VALUE MASS 1.2 NG/ML (<3.6); CPK CREATINE PHOSPHOKINASE 31 U/L (34-145); CREATININE FOR GFR 0.54 MG/DL (0.55-1.30); GLOMERULAR FILTRATION RATE > 60.0 (>39); GLUCOSE, FASTING 179 MG/DL (74-106); MB/CK RELATIVE INDEX 3.87 (< OR =4); POTASSIUM SERUM 3.2 MMOL/L (3.5-5.1); SODIUM LEVEL 145 MMOL/L (136-145)
[2024-03-07 05:17] LABS: CK-MB VALUE MASS 1.4 NG/ML (<3.6); MB/CK RELATIVE INDEX 4.82 (< OR =4)
[2024-03-07 07:05] LABS: CK-MB VALUE MASS 1.4 NG/ML (<3.6)
[2024-03-07 07:06] LABS: CPK CREATINE PHOSPHOKINASE 29 U/L (34-145); MB/CK RELATIVE INDEX 4.82 (< OR =4)
[2024-03-07] MEDS: ACETAMINOPHEN 325 MG TAB PO ONE (08:44)
[2024-03-07] MEDS: ASPIRIN 81MG CHEW TABLET PO ONE (08:48)
[2024-03-07] MEDS: FUROSEMIDE 40 MG TAB PO ONE (08:48)
[2024-03-07] MEDS: METOPROLOL SUCC *XL* 25MG TAB (TopROL *XL*) PO ONE (08:49)
[2024-03-07] MEDS: POTASSIUM CHLORIDE 10MEQ SR TABLET PO ONE ×2 (08:50→10:42)
[2024-03-07] MEDS: VALSARTAN 80 MG TAB (DIOVAN) PO ONE (08:50)
[2024-03-07] MEDS: ISOSORBIDE MON. (IMDUR) 30MG XR TAB PO ONE (08:50)
[2024-03-07] MEDS: CLOPIDOGREL 75 MG TAB PO ONE (09:01)
[2024-03-07] MEDS: GABAPENTIN 100 MG CAP PO ONE (09:03)
[2024-03-07] MEDS ORDERED: ACETAMINOPHEN 325 MG TAB PO PRN (09:05)
[2024-03-07] MEDS ORDERED: LACT10SO94 PO (09:23)
[2024-03-07] MEDS ORDERED: PANT40TA29 PO (09:23)
[2024-03-07] MEDS ORDERED: DALI1TAB2 PO (09:23)
[2024-03-07] MEDS ORDERED: AMLO1TAB25 PO (09:23)
[2024-03-07] MEDS ORDERED: PRED10TA2 PO (09:27)
[2024-03-07] MEDS ORDERED: HOME MED LIST COMPLETE! XX SCH (09:30)
[2024-03-07 11:06] LABS: C REACTIVE PROTEIN QUANTITATIV < 0.40 MG/DL (<1.0)
[2024-03-07 11:07] LABS: ALBUMIN 2.3 G/DL (3.2-5.2); ALKALINE PHOSPHATASE 90 U/L (35-104); ALT/SGPT 20 U/L (7.0-40); AST/SGOT 8 U/L (<34); BILIRUBIN,TOTAL 0.5 MG/DL (0.3-1.2); BLOOD UREA NITROGEN 25 MG/DL (9-23); CALCIUM LEVEL 8.2 MG/DL (8.3-10.6); CARBON DIOXIDE LEVEL 34 MMOL/L (20-31); CHLORIDE LEVEL 108 MMOL/L (98-107); CREATININE FOR GFR 0.48 MG/DL (0.55-1.30); GLOMERULAR FILTRATION RATE > 60.0 (>39); GLUCOSE, FASTING 116 MG/DL (74-106); MAGNESIUM LEVEL 2.3 MG/DL (1.8-2.4); POTASSIUM SERUM 3.1 MMOL/L (3.5-5.1); SODIUM LEVEL 147 MMOL/L (136-145); TOTAL PROTEIN 5.1 G/DL (5.7-8.2)
[2024-03-07 11:10] LABS: FREE T4 1.77 NG/DL (0.89-1.76); THYROID STIMULATING HORMONE 0.202 uIU/ML (0.55-4.78)
[2024-03-07] MEDS ORDERED: D5W 1,000 ML IV SCH (11:25)
[2024-03-07 11:32] VITALS: BP 139/75; TEMP 98.2; O2SAT 95
[2024-03-07] MEDS ORDERED: SENOKOT S TAB PO PRN (11:35)
[2024-03-07] MEDS ORDERED: IPRATROPIUM 0.5MG/ALBUTEROL 2.5MG INH SOL UD 3ML (DUONEB) INH PRN (11:35)
[2024-03-07] MEDS: D5W 250 ML IV ONE (12:10)
[2024-03-07] MEDS: ROSUVASTATIN 10 MG TAB (CRESTOR) PO SCH (13:48)
[2024-03-07] MEDS: ITRACONAZOLE 100 MG CAP (SPORANOX) PO SCH (14:08)
[2024-03-07 15:51] VITALS: BP 106/58; TEMP 98.2; O2SAT 96
[2024-03-07] MEDS: GABAPENTIN 100 MG CAP PO SCH (17:13)
[2024-03-07] MEDS: FAMOTIDINE 20 MG TAB PO SCH (17:13)
[2024-03-07] MEDS: predniSONE 10MG TAB PO SCH (17:13)
[2024-03-07 19:38] VITALS: BP 132/69; TEMP 98.1; O2SAT 92
[2024-03-07] MEDS: METOPROLOL TART 25 MG TABLET PO SCH (20:35)
[2024-03-07] MEDS: ADVAIR HFA 230/21MCG INHALER INH SCH (21:00)
[2024-03-07 23:19] VITALS: BP 129/70; TEMP 97; O2SAT 92
[2024-03-08 03:26] VITALS: BP 156/73; TEMP 97.9; O2SAT 93
[2024-03-08 07:33] VITALS: BP 156/74; TEMP 98.1; O2SAT 94
[2024-03-08] MEDS ORDERED: LEVOTHYROXINE 125MCG TABLET (0.125MG) PO SCH (09:00)
[2024-03-08] MEDS ORDERED: PANTOPRAZOLE 40MG TAB (PROTONIX) PO SCH (09:00)
[2024-03-08] MEDS ORDERED: predniSONE 10MG TAB PO SCH (09:00)
[2024-03-08] MEDS: VALSARTAN 80 MG TAB (DIOVAN) PO SCH (09:40)
[2024-03-08 09:41] VITALS: BP 156/74
[2024-03-08] MEDS: CLOPIDOGREL 75 MG TAB PO SCH (09:41)
[2024-03-08] MEDS: ISOSORBIDE MON. (IMDUR) 30MG XR TAB PO SCH (09:41)
[2024-03-08] MEDS: POTASSIUM CHLORIDE 10MEQ SR TABLET PO SCH (09:42)
[2024-03-08] MEDS: ASPIRIN 81MG ENTERIC TABLET PO SCH (09:42)
[2024-03-08 09:59] LABS: BASO % 0.5 % (0.0-1.0); HEMATOCRIT 38.1 % (36.0-47.0); HEMOGLOBIN 11.9 g/dl (12.0-15.5); LYMPH # 0.3 10^3/uL (1.5-5.0); LYMPH % 4.7 % (24.0-44.0); MEAN CORPUSCULAR HEMOGLOBIN 28.3 pg (27.0-33.0); MEAN CORPUSCULAR HGB CONC 31.2 g/dl (32.0-36.5); MEAN CORPUSCULAR VOLUME 90.7 fl (80.0-96.0); MONO # 0.2 10^3/uL (0.0-0.8); MONO % 3.8 % (2.0-8.0); NEUTROPHILS # 5.3 10^3/uL (1.5-8.5); NEUTROPHILS % 86.9 % (36.0-66.0); PLATELET COUNT, AUTOMATED 224 10^3/uL (150-450); WHITE BLOOD COUNT 6.1 10^3/uL (4.0-10.0)
[2024-03-08 11:02] LABS: ALBUMIN 2.4 G/DL (3.2-5.2); ALKALINE PHOSPHATASE 95 U/L (35-104); ALT/SGPT 21 U/L (7.0-40); AST/SGOT 9 U/L (<34); BILIRUBIN,TOTAL 0.6 MG/DL (0.3-1.2); BLOOD UREA NITROGEN 28 MG/DL (9-23); CALCIUM LEVEL 8.4 MG/DL (8.3-10.6); CARBON DIOXIDE LEVEL 27 MMOL/L (20-31); CHLORIDE LEVEL 110 MMOL/L (98-107); CREATININE FOR GFR 0.57 MG/DL (0.55-1.30); GLOMERULAR FILTRATION RATE > 60.0 (>39); GLUCOSE, FASTING 250 MG/DL (74-106); MAGNESIUM LEVEL 2.2 MG/DL (1.8-2.4); POTASSIUM SERUM 4.1 MMOL/L (3.5-5.1); SODIUM LEVEL 146 MMOL/L (136-145); TOTAL PROTEIN 5.4 G/DL (5.7-8.2)
[2024-03-08] MEDS ORDERED: METO1TAB87 PO (13:12)
[2024-03-08] MEDS ORDERED: VALS1TAB66 PO (13:12)
[2024-03-08 16:33] VITALS: TEMP 98.3; O2SAT 92
[2024-03-11] MEDS ORDERED: VITAMIN D 50,000 UNITS CAPSULE (ERGOCALCIFEROL 1.25MG) PO SCH (09:00)
[2024-03-21] MEDS ORDERED: predniSONE 10MG TAB PO SCH (09:00)
== END 2024-03-08 17:32 | disposition home or self-care (01) ==
LOC: M ED 03:05 → M ED INP 09:03 → M PCU 11:03
PROVIDERS: ADMIT Hospitalist; ATTEND Hospitalist
DX: I47.10 Supraventricular tachycardia, unspecified (principal); I25.10 Atherosclerotic heart disease of native coronary artery without angina pectoris; I25.2 Old myocardial infarction; E03.9 Hypothyroidism, unspecified; E78.5 Hyperlipidemia, unspecified; F17.218 Nicotine dependence, cigarettes, with other nicotine-induced disorders; Z98.61 Coronary angioplasty status; J44.9 Chronic obstructive pulmonary disease, unspecified; Z79.52 Long term (current) use of systemic steroids; K21.9 Gastro-esophageal reflux disease without esophagitis; J43.9 Emphysema, unspecified; B39.9 Histoplasmosis, unspecified; R91.8 Other nonspecific abnormal finding of lung field; Z79.82 Long term (current) use of aspirin; Z79.899 Other long term (current) drug therapy; Z79.02 Long term (current) use of antithrombotics/antiplatelets; Z79.51 Long term (current) use of inhaled steroids; Z88.0 Allergy status to penicillin; Z88.8 Allergy status to other drugs, medicaments and biological substances
CPT/HCPCS: 36415; 71045; 80048; 80053; 82550; 82553; 83735; 84439; 84443; 84484; 85025; 86140; 87486; 87581; 87633; 87798; 93005; 93041; 93306; 94640; 94760; 96374; 97161; 99285; G0378; J7512

== ENCOUNTER 2024-03-29 16:49 | Inpatient (IN) | payer OTHER ==
[~2024-03-29] VITALS: Ht 160 cm; Wt 57.5 kg
[~2024-03-29 16:49] MED LIST changes: +ADVA1AER9 INH; +DALI1TAB2 PO; +LACT10SO94 PO; +METO1TAB87 PO; +PANT40TA29 PO
[2024-03-29] MEDS ORDERED: ALBUTEROL 90 MCG/ACT 8GM HFA INHALER INH SCH (20:00)
[2024-03-29] MEDS: IPRATROPIUM 0.5MG/ALBUTEROL 2.5MG INH SOL UD 3ML (DUONEB) INH SCH (20:00)
[2024-03-29 20:03] VITALS: BP 136/64; TEMP 98.2; O2SAT 96
[2024-03-29] MEDS: BISACODYL 5MG TAB PO SCH (21:00)
[2024-03-29] MEDS: SIMETHICONE 80MG CHEW TAB PO SCH (21:00)
[2024-03-29 22:05] LABS: HEMATOCRIT 34.5 % (36.0-47.0); HEMOGLOBIN 10.8 g/dl (12.0-15.5); MEAN CORPUSCULAR HEMOGLOBIN 29.3 pg (27.0-33.0); MEAN CORPUSCULAR HGB CONC 31.3 g/dl (32.0-36.5); MEAN CORPUSCULAR VOLUME 93.8 fl (80.0-96.0); PLATELET COUNT, AUTOMATED 222 10^3/uL (150-450); RED BLOOD COUNT 3.68 10^6/uL (4.00-5.40); WHITE BLOOD COUNT 14.4 10^3/uL (4.0-10.0)
[2024-03-29] MEDS ORDERED: ALBUTEROL 90 MCG/ACT 8GM HFA INHALER INH PRN (22:25)
[2024-03-29 22:27] LABS: INR 0.97; PROTHROMBIN TIME 13.2 SECONDS (12.5-14.5)
[2024-03-29] MEDS ORDERED: NITR0.2D5 TD (22:33)
[2024-03-29] MEDS ORDERED: MIRA33506 PO (22:43)
[2024-03-29 22:44] LABS: ALBUMIN 2.3 G/DL (3.2-5.2); ALKALINE PHOSPHATASE 115 U/L (35-104); ALT/SGPT 22 U/L (7.0-40); AST/SGOT 11 U/L (<34); BILIRUBIN,TOTAL 0.4 MG/DL (0.3-1.2); BLOOD UREA NITROGEN 24 MG/DL (9-23); CALCIUM LEVEL 8.5 MG/DL (8.3-10.6); CARBON DIOXIDE LEVEL 32 MMOL/L (20-31); CHLORIDE LEVEL 106 MMOL/L (98-107); CREATININE FOR GFR 0.82 MG/DL (0.55-1.30); GLOMERULAR FILTRATION RATE > 60.0 (>39); GLUCOSE, FASTING 312 MG/DL (74-106); POTASSIUM SERUM 5.2 MMOL/L (3.5-5.1); SODIUM LEVEL 146 MMOL/L (136-145); TOTAL PROTEIN 5.2 G/DL (5.7-8.2)
[2024-03-29] MEDS ORDERED: SIME80CH5 PO (22:52)
[2024-03-29] MEDS ORDERED: BUDE0.5S6 INH (22:52)
[2024-03-29] MEDS ORDERED: BISA5TAB15 PO (22:52)
[2024-03-29] MEDS ORDERED: MUCI600T31 PO (22:52)
[2024-03-29] MEDS ORDERED: METH125I3 IVP (22:52)
[2024-03-29] MEDS ORDERED: ALBU2.5V10 INH (22:52)
[2024-03-29] MEDS ORDERED: LEVO1INJ4 IVP (22:52)
[2024-03-29 22:56] LABS: PROCALCITONIN 0.06 ng/ml
[2024-03-29] MEDS ORDERED: POTA20LI16 PO (23:07)
[2024-03-29] MEDS ORDERED: GENT80SY IV (23:07)
[2024-03-29] MEDS ORDERED: FAMO20TA PO (23:10)
[2024-03-29] MEDS ORDERED: HOME MED LIST COMPLETE! XX SCH (23:15)
[2024-03-29] MEDS: LACTATED RINGER'S 1000 ML IV ONE (23:27)
[2024-03-29 23:30] VITALS: BP 153/72; TEMP 97.7; O2SAT 95
[2024-03-30] MEDS ORDERED: POTASSIUM CHLORIDE 10% LIQ 20MEQ/15ML UDC PO SCH (03:10)
[2024-03-30] MEDS ORDERED: SENOKOT S TAB PO PRN (03:10)
[2024-03-30 03:56] VITALS: BP 170/76; TEMP 97.6; O2SAT 94
[2024-03-30 05:48] LABS: BASO % 0.2 % (0.0-1.0); HEMATOCRIT 33.2 % (36.0-47.0); HEMOGLOBIN 10.1 g/dl (12.0-15.5); LYMPH # 0.1 10^3/uL (1.5-5.0); MEAN CORPUSCULAR HGB CONC 30.4 g/dl (32.0-36.5); MEAN CORPUSCULAR VOLUME 95.4 fl (80.0-96.0); MONO # 0.7 10^3/uL (0.0-0.8); MONO % 4.8 % (2.0-8.0); NEUTROPHILS # 12.5 10^3/uL (1.5-8.5); NEUTROPHILS % 87.3 % (36.0-66.0); PLATELET COUNT, AUTOMATED 195 10^3/uL (150-450); RED BLOOD COUNT 3.48 10^6/uL (4.00-5.40); WHITE BLOOD COUNT 14.3 10^3/uL (4.0-10.0)
[2024-03-30] MEDS: LEVOTHYROXINE 125MCG TABLET (0.125MG) PO SCH (06:00)
[2024-03-30 06:13] LABS: BLOOD UREA NITROGEN 19 MG/DL (9-23); CALCIUM LEVEL 8.3 MG/DL (8.3-10.6); CARBON DIOXIDE LEVEL 33 MMOL/L (20-31); CHLORIDE LEVEL 108 MMOL/L (98-107); CREATININE FOR GFR 0.55 MG/DL (0.55-1.30); GLOMERULAR FILTRATION RATE > 60.0 (>39); GLUCOSE, FASTING 246 MG/DL (74-106); MAGNESIUM LEVEL 2.3 MG/DL (1.8-2.4); POTASSIUM SERUM 5.1 MMOL/L (3.5-5.1); SODIUM LEVEL 145 MMOL/L (136-145)
[2024-03-30] MEDS: ADVAIR HFA 230/21MCG INHALER INH SCH (06:57)
[2024-03-30] MEDS: BUDESONIDE 0.5 MG/2 ML INHALATION SUSPENSION INH SCH (06:58)
[2024-03-30] MEDS ORDERED: GLUCAGON INJ 1MG VIAL SC PRN (07:30)
[2024-03-30] MEDS ORDERED: GLUCOSE 4 GM CHEW PO PRN (07:30)
[2024-03-30] MEDS ORDERED: DEXTROSE 50% 50ML SYRINGE IV PRN (07:30)
[2024-03-30 07:34] VITALS: BP 170/82; TEMP 98.9; O2SAT 95
[2024-03-30] MEDS: MIRALAX *UNIT DOSE* 17GM PACKET PO SCH (08:27)
[2024-03-30] MEDS: LEVEMIR (INSULIN DETEMIR) 1 UNITS/0.01ML SC SCH (08:27)
[2024-03-30] MEDS: NITROGLYCERIN 0.2 MG/HR PATCH TD SCH (08:28)
[2024-03-30] MEDS: predniSONE 10MG TAB PO SCH (08:28)
[2024-03-30] MEDS: ASPIRIN 81MG ENTERIC TABLET PO SCH (08:28)
[2024-03-30] MEDS: INSULIN LISPRO (NovoLOG) PER UNIT SC SCH ×2 (08:28→20:37)
[2024-03-30] MEDS: ISOSORBIDE MON. (IMDUR) 30MG XR TAB PO SCH (08:29)
[2024-03-30] MEDS: VALSARTAN 80 MG TAB (DIOVAN) PO SCH (08:29)
[2024-03-30] MEDS: ROSUVASTATIN 10 MG TAB (CRESTOR) PO SCH (08:29)
[2024-03-30] MEDS: CLOPIDOGREL 75 MG TAB PO SCH (08:29)
[2024-03-30] MEDS: guaiFENesin ER TABLET 600 MG TAB PO SCH (08:29)
[2024-03-30] MEDS: ITRACONAZOLE 100 MG CAP (SPORANOX) PO SCH (08:29)
[2024-03-30] MEDS: GABAPENTIN 100 MG CAP PO SCH (08:30)
[2024-03-30] MEDS: FUROSEMIDE 40 MG TAB PO SCH (08:30)
[2024-03-30] MEDS: NS 0.45% 1,000 ML IV SCH (08:32)
[2024-03-30] MEDS: DOCUSATE SODIUM 100MG CAPSULE PO SCH (09:00)
[2024-03-30] MEDS ORDERED: PANTOPRAZOLE 40MG TAB (PROTONIX) PO SCH (09:00)
[2024-03-30] MEDS ORDERED: IPRATROPIUM 0.5MG/ALBUTEROL 2.5MG INH SOL UD 3ML (DUONEB) INH SCH (09:00)
[2024-03-30 09:15] LABS: HEMOGLOBIN A1c 7.3 % (4.0-6.0)
[2024-03-30] MEDS: CEFIDEROCOL SULFATE TOSYLATE 2 GM in D5W 100 ML IV SCH (10:19)
[2024-03-30] MEDS: METOPROLOL TART 12.5 MG PER 1/2 TAB PO SCH (10:21)
[2024-03-30] MEDS ORDERED: LIDOCAINE 1% MDV 20ML VIAL As Ordered ONE (12:59)
[2024-03-30 14:00] VITALS: BP 147/76
[2024-03-30] MEDS: FAMOTIDINE 20 MG TAB PO SCH (14:52)
[2024-03-30 16:00] VITALS: BP 128/75; TEMP 98.2; O2SAT 96
[2024-03-30] MEDS ORDERED: GENTAMICIN 380 MG in D5W 50 ML IV SCH (19:00)
[2024-03-30 19:45] VITALS: BP 145/67; TEMP 97.9; O2SAT 94
[2024-03-30] MEDS: SENNA 8.6 MG TAB (SENOKOT) PO SCH (21:00)
[2024-03-30] MEDS: GENTAMICIN 380 MG in D5W 50 ML IV SCH (21:05)
[2024-03-30] MEDS: ACETAMINOPHEN 325 MG TAB PO PRN (21:07)
[2024-03-31 04:39] VITALS: BP 153/73; TEMP 97.1; O2SAT 94
[2024-03-31 05:32] LABS: HEMATOCRIT 29.5 % (36.0-47.0); HEMOGLOBIN 9.2 g/dl (12.0-15.5); MEAN CORPUSCULAR HEMOGLOBIN 29.5 pg (27.0-33.0); MEAN CORPUSCULAR HGB CONC 31.2 g/dl (32.0-36.5); MEAN CORPUSCULAR VOLUME 94.6 fl (80.0-96.0); PLATELET COUNT, AUTOMATED 170 10^3/uL (150-450); RED BLOOD COUNT 3.12 10^6/uL (4.00-5.40); WHITE BLOOD COUNT 12.5 10^3/uL (4.0-10.0)
[2024-03-31 05:36] LABS: ERYTHROCYTE SEDIMENTATION RATE 21 mm/hr (0-30)
[2024-03-31 05:57] LABS: ALKALINE PHOSPHATASE 84 U/L (35-104); ALT/SGPT 22 U/L (7.0-40); AST/SGOT 14 U/L (<34); BILIRUBIN,TOTAL 0.5 MG/DL (0.3-1.2); BLOOD UREA NITROGEN 18 MG/DL (9-23); CALCIUM LEVEL 7.6 MG/DL (8.3-10.6); CARBON DIOXIDE LEVEL 33 MMOL/L (20-31); CHLORIDE LEVEL 107 MMOL/L (98-107); CREATININE FOR GFR 0.48 MG/DL (0.55-1.30); GLOMERULAR FILTRATION RATE > 60.0 (>39); GLUCOSE, FASTING 49 MG/DL (74-106); POTASSIUM SERUM 3.9 MMOL/L (3.5-5.1); SODIUM LEVEL 142 MMOL/L (136-145); TOTAL PROTEIN 4.4 G/DL (5.7-8.2)
[2024-03-31 08:19] VITALS: BP 140/60; TEMP 97.3; O2SAT 94
[2024-03-31] MEDS: predniSONE 10MG TAB PO SCH (10:02)
[2024-03-31 12:28] VITALS: BP 150/70; TEMP 97.2; O2SAT 94
[2024-03-31] MEDS: GENTAMICIN 190 MG in D5W 50 ML IV SCH (20:21)
[2024-03-31 20:24] VITALS: BP 111/57; TEMP 98.4; O2SAT 94
[2024-03-31 20:33] VITALS: BP 128/82; TEMP 97.9; O2SAT 92
[2024-04-01 03:03] VITALS: BP 138/62; TEMP 98; O2SAT 96
[2024-04-01 05:11] VITALS: BP 136/63; TEMP 97.3; O2SAT 96
[2024-04-01 07:28] LABS: HEMATOCRIT 32.2 % (36.0-47.0); HEMOGLOBIN 10.1 g/dl (12.0-15.5); MEAN CORPUSCULAR HEMOGLOBIN 29.2 pg (27.0-33.0); MEAN CORPUSCULAR HGB CONC 31.4 g/dl (32.0-36.5); MEAN CORPUSCULAR VOLUME 93.1 fl (80.0-96.0); PLATELET COUNT, AUTOMATED 170 10^3/uL (150-450); RED BLOOD COUNT 3.46 10^6/uL (4.00-5.40); WHITE BLOOD COUNT 11.2 10^3/uL (4.0-10.0)
[2024-04-01 07:51] LABS: ALKALINE PHOSPHATASE 94 U/L (35-104); ALT/SGPT 20 U/L (7.0-40); AST/SGOT 13 U/L (<34); BILIRUBIN,TOTAL 0.6 MG/DL (0.3-1.2); BLOOD UREA NITROGEN 14 MG/DL (9-23); CALCIUM LEVEL 7.6 MG/DL (8.3-10.6); CARBON DIOXIDE LEVEL 31 MMOL/L (20-31); CHLORIDE LEVEL 103 MMOL/L (98-107); CREATININE FOR GFR 0.43 MG/DL (0.55-1.30); GLOMERULAR FILTRATION RATE > 60.0 (>39); GLUCOSE, FASTING 80 MG/DL (74-106); POTASSIUM SERUM 3.9 MMOL/L (3.5-5.1); SODIUM LEVEL 142 MMOL/L (136-145); TOTAL PROTEIN 4.6 G/DL (5.7-8.2)
[2024-04-01] MEDS: LEVEMIR (INSULIN DETEMIR) 1 UNITS/0.01ML SC SCH (08:31)
[2024-04-01 12:14] VITALS: BP 132/60; TEMP 97.5; O2SAT 96
[2024-04-01] MEDS: GENTAMICIN 300 MG in D5W 50 ML IV SCH (12:46)
[2024-04-01 16:10] VITALS: BP 133/62; TEMP 97.4; O2SAT 95
[2024-04-01 19:23] VITALS: BP 122/59; TEMP 98; O2SAT 95
[2024-04-02] VITALS (7 sets, daily range): BP systolic 108–155; BP diastolic 56–90; TEMP 97.4–98.3; O2SAT 94–96
[2024-04-02 05:28] LABS: HEMOGLOBIN 9.3 g/dl (12.0-15.5); MEAN CORPUSCULAR HEMOGLOBIN 29.1 pg (27.0-33.0); MEAN CORPUSCULAR VOLUME 93.8 fl (80.0-96.0); PLATELET COUNT, AUTOMATED 142 10^3/uL (150-450); WHITE BLOOD COUNT 8.2 10^3/uL (4.0-10.0)
[2024-04-02 05:58] LABS: ALBUMIN 1.7 G/DL (3.2-5.2); ALKALINE PHOSPHATASE 90 U/L (35-104); ALT/SGPT 18 U/L (7.0-40); AST/SGOT 13 U/L (<34); BILIRUBIN,TOTAL 0.5 MG/DL (0.3-1.2); BLOOD UREA NITROGEN 17 MG/DL (9-23); CALCIUM LEVEL 8.1 MG/DL (8.3-10.6); CARBON DIOXIDE LEVEL 32 MMOL/L (20-31); CHLORIDE LEVEL 106 MMOL/L (98-107); CREATININE FOR GFR 0.46 MG/DL (0.55-1.30); GLOMERULAR FILTRATION RATE > 60.0 (>39); GLUCOSE, FASTING 66 MG/DL (74-106); POTASSIUM SERUM 4.2 MMOL/L (3.5-5.1); SODIUM LEVEL 141 MMOL/L (136-145); TOTAL PROTEIN 4.4 G/DL (5.7-8.2)
[2024-04-02] MEDS: LACTULOSE 20GM/30ML SYRUP UDC PO SCH (10:06)
[2024-04-02] MEDS: FUROSEMIDE 40 MG TAB PO SCH (10:16)
[2024-04-02] MEDS: GENTAMICIN 380 MG in D5W 50 ML IV SCH (13:07)
[2024-04-02] MEDS: SODIUM CHLORIDE 0.9% INJ 10 ML SYR IV SCH (14:15)
[2024-04-03 03:18] VITALS: BP 115/71; TEMP 96.7; O2SAT 95
[2024-04-03 07:39] VITALS: BP 144/65; TEMP 97.2; O2SAT 95
[2024-04-03 08:12] LABS: HEMATOCRIT 29.9 % (36.0-47.0); HEMOGLOBIN 9.4 g/dl (12.0-15.5); MEAN CORPUSCULAR HEMOGLOBIN 29.5 pg (27.0-33.0); MEAN CORPUSCULAR HGB CONC 31.4 g/dl (32.0-36.5); MEAN CORPUSCULAR VOLUME 93.7 fl (80.0-96.0); PLATELET COUNT, AUTOMATED 151 10^3/uL (150-450); RED BLOOD COUNT 3.19 10^6/uL (4.00-5.40); WHITE BLOOD COUNT 9.5 10^3/uL (4.0-10.0)
[2024-04-03 09:00] VITALS: BP 130/60
[2024-04-03 09:05] LABS: ALBUMIN 1.9 G/DL (3.2-5.2); ALKALINE PHOSPHATASE 97 U/L (35-104); ALT/SGPT 24 U/L (7.0-40); AST/SGOT 12 U/L (<34); BILIRUBIN,TOTAL 0.5 MG/DL (0.3-1.2); BLOOD UREA NITROGEN 14 MG/DL (9-23); CARBON DIOXIDE LEVEL 30 MMOL/L (20-31); CHLORIDE LEVEL 104 MMOL/L (98-107); CREATININE FOR GFR 0.38 MG/DL (0.55-1.30); GLOMERULAR FILTRATION RATE > 60.0 (>39); GLUCOSE, FASTING 70 MG/DL (74-106); POTASSIUM SERUM 3.6 MMOL/L (3.5-5.1); SODIUM LEVEL 139 MMOL/L (136-145); TOTAL PROTEIN 4.7 G/DL (5.7-8.2)
[2024-04-03] MEDS: SODIUM CHLORIDE 0.9% INJ 10 ML SYR IV PRN (13:38)
[2024-04-03 15:59] VITALS: BP 122/57; TEMP 97.4; O2SAT 95
[2024-04-03 19:55] VITALS: BP 103/55; TEMP 97.3; O2SAT 94
[2024-04-04 03:00] VITALS: BP 134/62; TEMP 97.8; O2SAT 96
[2024-04-04 05:45] VITALS: BP_SYST 135; BP_SYST 141; BP_SYST 152; BP_DIAS 64; BP_DIAS 68; BP_DIAS 70
[2024-04-04 07:56] LABS: HEMATOCRIT 29.3 % (36.0-47.0); HEMOGLOBIN 9.3 g/dl (12.0-15.5); MEAN CORPUSCULAR HEMOGLOBIN 29.8 pg (27.0-33.0); MEAN CORPUSCULAR HGB CONC 31.7 g/dl (32.0-36.5); MEAN CORPUSCULAR VOLUME 93.9 fl (80.0-96.0); PLATELET COUNT, AUTOMATED 152 10^3/uL (150-450); RED BLOOD COUNT 3.12 10^6/uL (4.00-5.40)
[2024-04-04 08:18] LABS: ALBUMIN 1.8 G/DL (3.2-5.2); ALKALINE PHOSPHATASE 106 U/L (35-104); ALT/SGPT 22 U/L (7.0-40); AST/SGOT 11 U/L (<34); BILIRUBIN,TOTAL 0.4 MG/DL (0.3-1.2); BLOOD UREA NITROGEN 16 MG/DL (9-23); CALCIUM LEVEL 8.2 MG/DL (8.3-10.6); CARBON DIOXIDE LEVEL 29 MMOL/L (20-31); CHLORIDE LEVEL 107 MMOL/L (98-107); CPK CREATINE PHOSPHOKINASE 17 U/L (34-145); CREATININE FOR GFR 0.37 MG/DL (0.55-1.30); GLOMERULAR FILTRATION RATE > 60.0 (>39); GLUCOSE, FASTING 77 MG/DL (74-106); POTASSIUM SERUM 3.6 MMOL/L (3.5-5.1); SODIUM LEVEL 142 MMOL/L (136-145); TOTAL PROTEIN 4.9 G/DL (5.7-8.2)
[2024-04-04 11:31] VITALS: BP 112/65; TEMP 97.6; O2SAT 98
[2024-04-04 20:11] VITALS: BP 78/48; TEMP 98.2; O2SAT 95
[2024-04-04 20:23] VITALS: BP 74/50
[2024-04-04] MEDS: NS (Normal Saline) 0.9% 1,000 ML IV STA (20:32)
[2024-04-04 21:11] VITALS: BP 96/50
[2024-04-05] VITALS (9 sets, daily range): BP systolic 98–158; BP diastolic 51–74; TEMP 97.5–98.1; O2SAT 94–98
[2024-04-06 04:00] VITALS: BP 136/60; TEMP 97.9; O2SAT 93
[2024-04-06 12:00] VITALS: BP 125/64; TEMP 97.7; O2SAT 95
[2024-04-06 20:25] VITALS: BP 102/57; TEMP 97.2; O2SAT 95
[2024-04-07 04:21] VITALS: BP 127/63; TEMP 97.9; O2SAT 94
[2024-04-07 11:44] VITALS: BP 126/61; TEMP 97.2; O2SAT 95
[2024-04-07 12:01] VITALS: BP 140/76; TEMP 97.7; O2SAT 94
[2024-04-07 19:51] VITALS: BP 101/52; TEMP 97; O2SAT 95
[2024-04-08 03:41] VITALS: BP 142/64; TEMP 97.7; O2SAT 94
[2024-04-08 08:54] LABS: BASO % 0.1 % (0.0-1.0); EOS % 0.1 % (0.0-3.0); HEMATOCRIT 31.7 % (36.0-47.0); HEMOGLOBIN 9.3 g/dl (12.0-15.5); LYMPH # 0.6 10^3/uL (1.5-5.0); LYMPH % 7.7 % (24.0-44.0); MEAN CORPUSCULAR HEMOGLOBIN 30.2 pg (27.0-33.0); MEAN CORPUSCULAR HGB CONC 29.3 g/dl (32.0-36.5); MEAN CORPUSCULAR VOLUME 102.9 fl (80.0-96.0); MONO # 0.3 10^3/uL (0.0-0.8); MONO % 3.3 % (2.0-8.0); NEUTROPHILS # 6.7 10^3/uL (1.5-8.5); NEUTROPHILS % 87.9 % (36.0-66.0); PLATELET COUNT, AUTOMATED 106 10^3/uL (150-450); RED BLOOD COUNT 3.08 10^6/uL (4.00-5.40); WHITE BLOOD COUNT 7.7 10^3/uL (4.0-10.0)
[2024-04-08 09:14] LABS: ALBUMIN 2.2 G/DL (3.2-5.2); ALKALINE PHOSPHATASE 91 U/L (35-104); ALT/SGPT 24 U/L (7.0-40); AST/SGOT 17 U/L (<34); BILIRUBIN,TOTAL 0.7 MG/DL (0.3-1.2); BLOOD UREA NITROGEN 25 MG/DL (9-23); CALCIUM LEVEL 8.2 MG/DL (8.3-10.6); CARBON DIOXIDE LEVEL 26 MMOL/L (20-31); CHLORIDE LEVEL 109 MMOL/L (98-107); CREATININE FOR GFR 0.43 MG/DL (0.55-1.30); GLOMERULAR FILTRATION RATE > 60.0 (>39); GLUCOSE, FASTING 105 MG/DL (74-106); POTASSIUM SERUM 3.5 MMOL/L (3.5-5.1); SODIUM LEVEL 145 MMOL/L (136-145); TOTAL PROTEIN 5.3 G/DL (5.7-8.2)
[2024-04-08 12:00] VITALS: BP 107/52; TEMP 97.7; O2SAT 98
[2024-04-09 03:57] VITALS: TEMP 98.1; O2SAT 93
[2024-04-09 09:20] VITALS: BP 90/50
[2024-04-09 22:11] VITALS: BP 126/53
[2024-04-10 04:00] VITALS: BP 123/71; TEMP 97.7; O2SAT 94
[2024-04-10 08:45] VITALS: BP 124/66
[2024-04-10] MEDS: FUROSEMIDE 20 MG TAB PO SCH (08:47)
[2024-04-10] MEDS ORDERED: POTA20LI16 PO (11:09)
[2024-04-10] MEDS ORDERED: METF-838 PO (11:09)
== END 2024-04-10 14:47 | disposition home health service (06) | DRG 871 ==
LOC: M PCU 19:51 → EEVIPCON 19:51 → M MSPAV 04-05 02:15
PROVIDERS: ADMIT Internal Medicine; ATTEND Internal Medicine
PROC: 05HB33Z Insertion of Infusion Device into Right Basilic Vein, Percutaneous Approach (ICD-10-PCS; principal; 2024-03-30 13:30)
DX: A41.9 Sepsis, unspecified organism (principal); J15.61 Pneumonia due to Acinetobacter baumannii; B39.2 Pulmonary histoplasmosis capsulati, unspecified; I50.33 Acute on chronic diastolic (congestive) heart failure; J44.0 Chronic obstructive pulmonary disease with (acute) lower respiratory infection; I11.0 Hypertensive heart disease with heart failure; E78.5 Hyperlipidemia, unspecified; I25.10 Atherosclerotic heart disease of native coronary artery without angina pectoris; R91.8 Other nonspecific abnormal finding of lung field; K59.00 Constipation, unspecified; E03.9 Hypothyroidism, unspecified; T38.0X5A Adverse effect of glucocorticoids and synthetic analogues, initial encounter; E11.65 Type 2 diabetes mellitus with hyperglycemia; D64.9 Anemia, unspecified; R33.9 Retention of urine, unspecified; F17.210 Nicotine dependence, cigarettes, uncomplicated; K21.9 Gastro-esophageal reflux disease without esophagitis; Z90.49 Acquired absence of other specified parts of digestive tract; Z90.79 Acquired absence of other genital organ(s); Z79.82 Long term (current) use of aspirin; Z79.890 Hormone replacement therapy; Z79.52 Long term (current) use of systemic steroids; Z79.899 Other long term (current) drug therapy; Z88.0 Allergy status to penicillin; Z88.8 Allergy status to other drugs, medicaments and biological substances; I25.2 Old myocardial infarction; Z95.5 Presence of coronary angioplasty implant and graft; Z95.828 Presence of other vascular implants and grafts

== ENCOUNTER 2024-08-01 11:50 | Emergency (ER) | payer MEDICARE, OTHER ==
[~2024-08-01] VITALS: Ht 160 cm; Wt 55.1 kg
[~2024-08-01 11:50] MED LIST changes: +BISA5TAB15 PO; +BUDE0.5S6 INH; +GENT80SY IV; +LEVO1INJ4 IVP; +METF-838 PO; +METH125I3 IVP; +MIRA33506 PO; +MUCI600T31 PO; +NITR0.2D5 TD; +POTA20LI16 PO; +SIME80CH5 PO
[2024-08-01 13:06] LABS: BASO % 0.1 % (0.0-1.0); EOS % 0.1 % (0.0-3.0); HEMATOCRIT 38.1 % (36.0-47.0); HEMOGLOBIN 11.2 g/dl (12.0-15.5); LYMPH # 0.5 10^3/uL (1.5-5.0); LYMPH % 4.2 % (24.0-44.0); MEAN CORPUSCULAR HEMOGLOBIN 28.9 pg (27.0-33.0); MEAN CORPUSCULAR HGB CONC 29.4 g/dl (32.0-36.5); MEAN CORPUSCULAR VOLUME 98.2 fl (80.0-96.0); MONO # 0.4 10^3/uL (0.0-0.8); MONO % 3.7 % (2.0-8.0); NEUTROPHILS # 9.7 10^3/uL (1.5-8.5); NEUTROPHILS % 91.5 % (36.0-66.0); PLATELET COUNT, AUTOMATED 423 10^3/uL (150-450); RED BLOOD COUNT 3.88 10^6/uL (4.00-5.40); WHITE BLOOD COUNT 10.6 10^3/uL (4.0-10.0)
[2024-08-01 13:19] LABS: ALBUMIN 3.4 G/DL (3.2-5.2); ALKALINE PHOSPHATASE 96 U/L (35-104); ALT/SGPT 12 U/L (7.0-40); AST/SGOT 34 U/L (<34); BILIRUBIN,DIRECT 0.2 MG/DL (<0.4); BILIRUBIN,TOTAL 0.9 MG/DL (0.3-1.2); BLOOD UREA NITROGEN 20 MG/DL (9-23); CALCIUM LEVEL 8.7 MG/DL (8.3-10.6); CARBON DIOXIDE LEVEL 30 MMOL/L (20-31); CHLORIDE LEVEL 104 MMOL/L (98-107); CK-MB VALUE MASS < 1.0 NG/ML (<3.6); CPK CREATINE PHOSPHOKINASE 45 U/L (34-145); CREATININE FOR GFR 0.42 MG/DL (0.55-1.30); GLOMERULAR FILTRATION RATE > 90.0 (>39); GLUCOSE, FASTING 111 MG/DL (74-106); MB/CK RELATIVE INDEX 2.22 (< OR =4); POTASSIUM SERUM 4.8 MMOL/L (3.5-5.1); SODIUM LEVEL 145 MMOL/L (136-145); TOTAL PROTEIN 6.6 G/DL (5.7-8.2)
[2024-08-01] MEDS: ASPIRIN 81MG CHEW TABLET PO ONE (13:32)
[2024-08-01 14:31] LABS: CK-MB VALUE MASS < 1.0 NG/ML (<3.6)
[2024-08-01 14:32] LABS: CPK CREATINE PHOSPHOKINASE 26 U/L (34-145); MB/CK RELATIVE INDEX 3.84 (< OR =4)
[2024-08-01 14:34] LABS: THYROID STIMULATING HORMONE 0.112 uIU/ML (0.55-4.78); THYROXINE (T4) 13.2 UG/DL (4.5-10.9)
[2024-08-01 14:45] LABS: PROCALCITONIN 0.09 ng/ml
[2024-08-01] MEDS ORDERED: PRED10TA2 PO (15:17)
[2024-08-01] MEDS ORDERED: OSEL75CA PO (15:17)
[2024-08-01] MEDS ORDERED: ONDA-282 PO (15:18)
[2024-08-01 16:30] VITALS: BP 144/66
[2024-08-01 16:35] VITALS: O2SAT 96
[2024-08-01 16:41] VITALS: TEMP 97.2
== END 2024-08-01 16:50 | disposition home or self-care (01) ==
LOC: M ED 11:50
DX: J09.X2 Influenza due to identified novel influenza A virus with other respiratory manifestations (principal); J44.1 Chronic obstructive pulmonary disease with (acute) exacerbation; E78.5 Hyperlipidemia, unspecified; E03.9 Hypothyroidism, unspecified; K21.9 Gastro-esophageal reflux disease without esophagitis; I10 Essential (primary) hypertension; Z86.73 Personal history of transient ischemic attack (TIA), and cerebral infarction without residual deficits; Z86.79 Personal history of other diseases of the circulatory system; Z79.52 Long term (current) use of systemic steroids; Z79.82 Long term (current) use of aspirin; Z79.83 Long term (current) use of bisphosphonates; Z79.899 Other long term (current) drug therapy; Z88.8 Allergy status to other drugs, medicaments and biological substances